=== PATIENT | female | born 1970 | race Caucasian/White ===

== ENCOUNTER 2017-03-03 12:23 | Inpatient (IN) | payer MEDICARE, MEDICAID ==
[2017-03-03] MEDS ORDERED: LORazepam INJ* 2 MG/ML 1 ML VIAL IV PRN (17:28)
[2017-03-03] MEDS ORDERED: diPHENhydraMINE PO* 25 MG PO PRN (17:28)
[2017-03-03] MEDS ORDERED: Mometasone/Formoter 100/5 MDI INH PRN (17:32)
--- NOTE | 2017-03-03 17:45 | ADMNOTE ---
Admission Note HPI - HPI Handedness: DOS 03/03/17 History of Present Illness: Lydia Mcmahon is a 46 year old woman with a history of diabetes with multiple complications, asthma, intellectual disability and tachycardia s/p pacemaker in March. She has been having episodes of possible seizures since approximately 2009, after she had a cardiac ablation. When I first saw her in Feb 2015, they had been getting more frequent and more bothersome. She initially reported that she would sometimes get nauseated at the start of an episode, then gets a feeling like her airway closes in and she loses balance. She denies any gagging with these episodes. She has fallen in the past because of episodes. She feel like she cannot talk during these episodes and her tongue gets numb. She had initially reported in 2014 that they could last between 15 and 30 minutes. She is tired afterward. It has been unclear whether she loses memory for the event. She cannot identify any triggers. She had checked her blood glucose at home when these occurred and never found it to be low. She was started on levetiracetam and this was titrated up to the current dose of 1500mg BID. She indicates that these episodes are improved, but not resolved. Her work up has included MRI brain and EEG. MRI did not show an epileptogenic lesion and EEG was not convincing for seizure either. She has also had an event monitor, which diagnosed paroxysmal atrial fibrillation, though episodes of AF did not correlate with her symptoms. She has had a pulmonary evaluation as well. PMH/Surg Hx/FS Hx/Imm Hx Endocrine/Hematology History: Reports: Hx Anticoagulant Therapy, Hx Diabetes, Hx Thyroid Disease Denies: Hx Blood Disorders, Hx Blood Transfusions, Hx Bone Marrow Disease, Hx Systemic Lupus Erythematosus, Hx Sickle Cell Disease, Hx Anemia, Hx Unexplained Bleeding, Other Endocrine/Hematological Disorders Cardiovascular History: Reports: Hx Auto Implanted Cardiovert Defib, Hx Congestive Heart Failure, Hx Coronary Artery Disease, Hx Embolism, Hx Hypercholesterolemia, Hx Hypertension, Hx Pacemaker/ICD, Hx Peripheral Vascular Disease, Hx Syncope Denies: Hx Aneurysm, Hx Angina, Hx Angioplasty, Hx Cardiac Arrest, Hx Cardiomegaly, Hx Congenital Heart Disease, Hx Deep Vein Thrombosis, Hx Hypotension, Hx Valvular Heart Disease, Other Cardiovascular Problems/Disorders Respiratory History: Reports: Hx Asthma, Other Respiratory Problems/Disorders - feeling that she can not breath at times. 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 Denies: Hx Cataracts, Hx Eye Injury, Hx Eye Prosthesis, Hx Glaucoma, Hx Legally Blind, Hx Macular Degeneration, Hx Vision Problem, Hx Deafness - left ear nerve damage, Hx Hearing Aid, Other Sensory Impairments Opthamlomology History: Reports: Hx Contacts or Glasses Denies: Hx Cataracts, Hx Eye Injury, Hx Eye Prosthesis, Hx Glaucoma, Hx Legally Blind, Hx Macular Degeneration, Hx Vision Problem, Other Sensory Impairments Neurological History: Reports: Hx Developmental Delay, Hx Seizures Denies: Hx Headaches, Hx Migraine, Hx Nerve Disease, Hx Spinal Cord Injury, Hx Transient Ischemic Attacks (TIA), Other Neuro Impairments/Disorders Psychiatric History: Reports: Hx Panic Disorder - DEPRESSION - Surgical History Surgery Procedure, Year, and Place: LIVER BIOPSY, KIDNEY BIOPSY, LASER EYE SURGERY LT EYE, EPS STUDY WITH ABLATION Infectious Disease History: No Infectious Disease History: Denies: Hx Clostridium Difficile, Hx Hepatitis, Hx Human Immunodeficiency Virus (HIV), Hx of Known/Suspected MRSA, Hx Shingles, Hx Tuberculosis, History Other Infectious Disease, Traveled Outside the [place] in Last 30 Days - Social History Alcohol Use: None Substance Use Type: Reports: None Smoking Status (MU): Never Smoked Tobacco Have You Smoked in the Last Year: No EMU Exam - Exam Physical/Neurological Exam: Physical Exam: General: Well appearing in no acute distress. Eyes: normal conjunctiva, pupils were equal and reactive. Neck: supple, no bruit ENT: atraumatic, normal oropharynx. She is edentulous Pulmonary: clear to auscultation, good respiratory effort Cardiac: regular rate and rhythmic, slight cardiac murmur, pulses palpable MSK: pitting lower extremity edema Derm: no rashes or lesions Neurological Exam: Mental Status: Awake and alert. Oriented to person, place, and time. Fluent but simple speech. Comprehension intact. Affect appropriate. Cranial Nerves: Visual dunn full to confrontation. Pupils were equal, round, and reactive constricting from 3mm to 2mm. Versions were full and without nystagmus. Facial musculature and sensation were symmetric. Hearing grossly intact to finger rub. Palate was upgoing bilaterally. Tongue was midline. Shoulder shrug was symmetric. Motor: Bulk, tone, and strength were normal throughout. Pronator drift was absent. There were no abnormal movements. Sensory: Sensation to light touch intact. Romberg was deferred. Coordination: Finger to nose intact. Reflexes: 2+ throughout the upper and lower extremities except absent ankle jerks. Gait: antalgic as she was seen ambulating to the bathroom right after she'd experienced a charley horse in her right leg EMU Review of Systems Review of Systems: A 12 point review of systems was completed and significantly positive for: increasing balance difficulties, coughing fits, cramps in leg and left hand. The remainder of the review was negative except as stated above in the HPI. EMU Diagnostics - Diagnostic Most Recent Vital Signs: Vital Signs: Temp Pulse Resp BP Pulse Ox 97.8 F 82 16 172/93 97 03/03/17 13:27 03/03/17 13:27 03/03/17 14:45 03/03/17 13:27 03/03/17 13:27 Interim video-EEG long-term monitoring report: EEG 04/10/15: Occasional mild, diffuse slowing but no discharges Radiology Impressions: MRI Brain 04/10/15: Normal, no epileptogenic lesions EMU Assessment/Plan - Assessment/Plan Assessment/Plan: 46 year old woman with multiple medical problems as well as episodes of possible seizures characterized by a sense of breath cutting out and sometimes preceded by nausea. These episodes seem to be less frequent on levetiracetam, but not resolved. She has had cardiac as well as pulmonary work up for these events without clear etiology. Though she describes the episodes as lasting many minutes, the differential does include seizures. The goal of the present chcf video/EEG monitoring session is to characterize these events and to evaluate the EEG for epileptiform activity. Plan: Admit to the Epilepsy Service, Dr. Weeks attending assisted video EEG monitoring for the purpose of characterizing events above Seizure precautions IV lorazepam as needed for prolonged seizures > 3 minutes Home AED regimen: levetiracetam 1500mg BID. Decrease to 750mg BID * Telemetry * Will check BGs with events Continue on other prescribed home medications.
[2017-03-03] MEDS: Potassium Chlor TAB* 20 MEQ TAB.ER PO SCH ×2 (18:00→21:15)
[2017-03-03] MEDS: Omeprazole CAP* 20 MG PO SCH ×2 (18:00→21:26)
[2017-03-03] MEDS: Atorvastatin* 10 MG TAB PO SCH (20:59)
[2017-03-03] MEDS: Gabapentin CAP(*) 100 MG PO SCH (21:14)
[2017-03-03] MEDS: Torsemide TAB* 20 MG PO SCH (21:14)
[2017-03-03] MEDS: Magnesium Oxide TAB* 400 MG PO SCH (21:14)
[2017-03-03] MEDS: Metoprolol Tartrate TAB* 25 MG PO SCH (21:15)
[2017-03-03] MEDS: levETIRAcetam TAB* 500 MG PO SCH (21:16)
[2017-03-03] MEDS: URSODIOL 250 MG PO SCH (21:26)
[2017-03-03] MEDS: LUBIPROSTONE 24 MCG PO SCH (21:26)
[2017-03-03] MEDS: Acetaminophen TAB* 325 MG PO PRN (22:05)
[2017-03-04] MEDS: Acetaminophen TAB* 325 MG PO PRN (03:59)
[2017-03-04] MEDS: Levothyroxine TAB* 125 MCG TAB PO SCH (06:18)
[2017-03-04] MEDS: Insulin LISPRO* 1 UNITS UNIT SUBCUT SCH ×3 (07:59→18:33)
[2017-03-04] MEDS: Cyanocobalamin TAB* 500 MCG PO SCH (08:49)
[2017-03-04] MEDS: DAPAGLIFLOZIN METFORMIN HCL PO SCH (08:50)
[2017-03-04] MEDS: Gabapentin CAP(*) 100 MG PO SCH ×3 (08:51→20:23)
[2017-03-04] MEDS: Isosorbide Mononitrate ER TAB* 30 MG PO SCH (08:53)
[2017-03-04] MEDS: levETIRAcetam TAB* 500 MG PO SCH (08:54)
[2017-03-04] MEDS: LINACLOTIDE 145 MCG PO SCH (08:54)
[2017-03-04] MEDS: LUBIPROSTONE 24 MCG PO SCH ×2 (08:55→20:24)
[2017-03-04] MEDS: Metolazone TAB* 5 MG PO SCH (08:56)
[2017-03-04] MEDS: Magnesium Oxide TAB* 400 MG PO SCH ×3 (08:56→20:23)
[2017-03-04] MEDS: Metoprolol Tartrate TAB* 25 MG PO SCH ×2 (08:58→20:23)
[2017-03-04] MEDS: Spironolactone TAB* 25 MG PO SCH (08:59)
[2017-03-04] MEDS: URSODIOL 250 MG PO SCH ×2 (09:00→20:24)
[2017-03-04] MEDS: Torsemide TAB* 20 MG PO SCH ×2 (09:00→20:24)
[2017-03-04] MEDS ORDERED: Insulin GLARGINE(*) 1 UNITS UNIT SUBCUT SCH (09:00)
[2017-03-04] MEDS: Aspirin Low Dose CHEW TAB* 81 MG PO SCH (09:06)
--- NOTE | 2017-03-04 09:59 | EEG ---
RESIDENTIAL VIDEO/EEG MONITORING - Monitoring Monitoring Start Date: 03/03/17 Current Monitoring Session: 03/03/17 to 03/10/17 EEG Clinical Indication: Lydia Mcmahon is a 46 year old woman with multiple medical problems including poorly controlled diabetes with associated complications, hypertension, tachycardia s/p pacemaker implantation and possible seizures. She began having these events in 2009 after a cardiac ablation but they became more frequent and intense in 2014. She describes her "breath cutting out" preceded sometimes by nausea and gestures across her neck with her hand. She sometimes has impaired memory for events. She will lose her balance if standing and has fallen in the past. Levetiracetam seems to have decreased the frequency of these events but they continue. MRI was normal and outpatient EEG did not show any epileptiform abnormalities. A cardiac event monitor did not correlate any tachycardia episodes with these symptoms. Long-term video EEG monitoring is undertaken in order to characterize these events. Introduction: INTRODUCTION: The EEG was monitored from 21 scalp electrodes. Nineteen electrodes consisted of the standard parasagittal, temporal and midline leads of the International 10 -20 system. In addition, special electrodes T1 and T2 were placed. EEG data were recorded on an [employer] system with simultaneous MPEG-4 digital video recording of patient behavior. EEG recording was in a monopolar montage with all electrodes referenced to FCz. Significant behavioral events were signaled by an event button, or putative electrical seizure events were detected by a computer program. All EEG data were reviewed in their entirety on a monitor with reconstruction of montages and adjustments of sensitivity and filtering. Simultaneous patient behavior was viewed on an adjacent monitor and correlated with the EEG. - Medications Active Medications: Acetaminophen (Tylenol Tab*) 650 mg PO Q6H PRN PRN Reason: PAIN Last Admin: 03/04/17 03:59 Dose: 650 mg Aspirin (Aspirin Low Dose Tab*) 81 mg PO DAILY [facility] Last Admin: 03/04/17 09:06 Dose: 81 mg Atorvastatin Calcium (Lipitor*) 10 mg PO BEDTIME RUBÉN Last Admin: 03/03/17 20:59 Dose: 10 mg Cyanocobalamin (Vitamin B12 Tab*) 1,000 mcg PO QAM [facility] Last Admin: 03/04/17 08:49 Dose: 1,000 mcg Diphenhydramine HCl (Benadryl Po*) 25 mg PO Q6H PRN PRN Reason: ITCHING Gabapentin (Neurontin Cap(*)) 100 mg PO TID [facility] Last Admin: 03/04/17 08:51 Dose: 100 mg Insulin Glargine (Lantus(*)) 100 units SUBCUT DAILY [facility] Last Admin: 03/04/17 09:01 Dose: 100 units Insulin Human Lispro (Humalog*) 40 units SUBCUT TID [facility] Last Admin: 03/04/17 07:59 Dose: 40 units Isosorbide Mononitrate (Imdur Er Tab*) 45 mg PO DAILY [facility] Last Admin: 03/04/17 08:53 Dose: 45 mg Levetiracetam (Keppra Tab*) 750 mg PO BID [facility] Last Admin: 03/04/17 08:54 Dose: 750 mg Levothyroxine Sodium (Synthroid Tab*) 250 mcg PO DAILY@0600 [facility] Last Admin: 03/04/17 06:18 Dose: 250 mcg Linaclotide (Linzess (Nf)) 290 mcg PO DAILY [facility] Last Admin: 03/04/17 08:54 Dose: 290 mcg Lorazepam (Ativan Inj*) 1 mg IV Q8H PRN PRN Reason: Seizure > 3 minutes Lubiprostone (Amitiza (Nf)) 24 mcg PO BID [facility] Last Admin: 03/04/17 08:55 Dose: 24 mcg Magnesium Oxide (Magox 400 Tab*) 400 mg PO TID [facility] Last Admin: 03/04/17 08:56 Dose: 400 mg Metolazone (Zaroxolyn Tab*) 7.5 mg PO QAM [facility] Last Admin: 03/04/17 08:56 Dose: 7.5 mg Metoprolol Tartrate (Lopressor Tab*) 25 mg PO BID [facility] Last Admin: 03/04/17 08:58 Dose: 25 mg Mometasone Furoate/Formoterol Fumar (Dulera 100/5 Mdi*) 2 puff INH BID PRN PRN Reason: SOB/WHEEZING Pto: Dapagliflozin- Metformin Hcl [ Xigduo Xr 10-1000 Mg ] 1 mg PO QAM [facility] Last Admin: 03/04/17 08:50 Dose: 1 mg Omeprazole (Prilosec Cap*) 40 mg PO QPM [facility] Last Admin: 03/03/17 21:26 Dose: 40 mg Potassium Chloride (Klor Con Er Tab*) 20 meq PO QPM [facility] Last Admin: 03/03/17 21:15 Dose: 20 meq Potassium Chloride (Klor Con Er Tab*) 40 meq PO DAILY [facility] Spironolactone (Aldactone Tab*) 50 mg PO DAILY [facility] Last Admin: 03/04/17 08:59 Dose: 50 mg Torsemide (Demadex*) 80 mg PO BID [facility] Last Admin: 03/04/17 09:00 Dose: 80 mg Ursodiol (Sophie 250(Nf)) 250 mg PO BID [facility] Last Admin: 03/04/17 09:00 Dose: 250 mg - Description Background: The waking background showed appropriate organization with clearly defined anterior-posterior voltage and frequency gradients. There was a defined posterior dominant rhythm of 9 Hertz, which was symmetrical and showed normal reactivity. Anteriorly, there was the expected pattern of lower voltage and more irregular theta and beta rhythms. At the beginning of the recording period, there are occasional paroxysms when the patient is not maximally awake of diffuse, polymorphic moderate to high voltage 2 to 5 Hz activity lasting 0.5 to 3 seconds per epoch. At times, there are intermixed sharp features which are not epileptiform. These paroxysms of slowing are seen more frequently when the patient becomes drowsy. Starting on , there was a greater degree of slowing intermixed within the background as the patient appeared to be in a drowsy/encephalopathic state much of the time. This persisted through 03/08. The slowing was often frontally predominant, but also represented diffusely. In general, during this time, the PDR was slower, in the range of 6 Hz. The background began to normalize in the evening on 03/08. Periods of frontally predominant delta slowing persisted. In addition, at times , epochs of temporal intermittent rhythmic delta activity in the range of 2 to 4 Hz were noted in the left temporal region. These lasted from 2 to 5 seconds. TIRDA was not noticed until levetiracetam was discontinued and recovery of the background began after the patient's illness (further described in interictal section). The sleep background was appropriately organized with well-developed spindles and vertex waves indicative of stage 2 sleep. These sleep transients showed appropriate morphology and were bilaterally synchronous and symmetrical. Development of diffuse delta range frequencies with dropout of stage 2 architecture accompanied transition to slow wave sleep, and a lower voltage mixed frequency pattern associated with eye movements was consistent with REM sleep. Intericatal Epileptiform Activity: #01 03/03: Medications: levetiracetam 750mg BID Background as described above with occasional periods of high voltage diffuse slowing, more prominent during drowsiness. There are no epileptiform abnormalities #02 03/04: Medications: levetiracetam 375mg BID Background essentially unchanged, perhaps a bit more slowing noted during the program management specialist hours of 03/05. Patient was nauseated, vomiting on the morning of . In the afternoon on 03/04, experienced symptomatic hypoglycemia to as low as 40, no clear change in EEG. Meal time insulin was changed to sliding scale from typical 40 units AC. No epileptiform discharges #03 03/05: Medications: levetiracetam 375mg BID Patient essentially slept most of the time during this recording. During periods of waking, there was a greater degree of slowing in the delta range, frontally predominant, than previously noted. She continued to be nauseated and vomited several times on this day. No discharges #04 03/06: Medications: levetiracetam 250mg at bedtime then d/c Background continued to show a greater degree of slowing than on admission, with some periods of improved background organization when patient was maximally awake. Still slept frequently during the day but not as much as previous day. No discharges. No further vomiting. #05 03/07: Medications: none Background demonstrated continued mixed frequency polymorphic slowing with frequent periods of frontal intermittent rhythmic delta activity. Somewhat more awake but still was sleeping a lot. No discharges. #06 03/08: Medications: none Background demonstrated continued mixed frequency polymorphic slowing with frequent periods of frontal intermittent rhythmic delta activity which improved over the course of the day. At times, the frontal slowing had some sharp contours, but not epileptiform. At other times, there was a predominance of intermittent rhythmic delta activity noted over the left temporal region. No discharges. #07 03/09: Medications: none Background appears similar to the day of admission with occasional epochs of high voltage slowing which is sometimes diffuse, sometimes frontally predominant. No discharges but she did again have periods of left temporal intermittent rhythmic delta activity at about 2 to 4Hz. She underwent photic stimulation and the response was unremarkable #08 03/10: Medications: levetiracetam 1500mg BID restarted Background similar to admission. No discharges. Ictal Activity: #01 03/03: No patient events, no ictal events #02 03/04: No patient events, no ictal events. #03 03/05: No ictal events. The event button was pressed by the nurse at 12:33 on 03/05 because the patient was feeling nauseated and hot. There was no EEG correlate to this. A slightly slow, waking background was noted. #04 03/06: No ictal events. No patient events. #05 03/07: No ictal events. No patient events. #06 03/08: No ictal events. No patient events #07 03/09: No ictal events. No patient events #08 03/10: No ictal events. No patient events. - Impression Impression: This is an abnormal long-term monitoring session. At the beginning of the recording, the background demonstrated intermittent periods of diffuse slowing which sometimes had a frontal predominance, consistent with a mild, non- specific encephalopathy. The patient became ill with nausea and vomiting 2 days after admission and the EEG demonstrated a much greater degree of slowing. In addition, the patient predominantly slept over the period of several days. These findings were consistent with a mild to moderate degree of encephalopathy. As the patient recovered from this illness and levetiracetam was weaned and discontinued, the background returned to her baseline, but periods of intermittent rhythmic delta slowing in the left temporal region were noted (TIRDA). These findings are consistent with increased epileptic potential in the left temporal region, though no definitive epileptiform discharges were seen. Unfortunately, none of the patient's typical events were captured during this monitoring session. Therefore, the nature of these events remains uncertain, but the possibility of epilepsy remains given the presence of TIRDA noted once levetiracetam was weaned.
[2017-03-04] MEDS: Potassium Chlor TAB* 20 MEQ TAB.ER PO SCH ×2 (10:29→18:38)
--- NOTE | 2017-03-04 11:30 | PN ---
Epilepsy Service Progress Note - Subjective DOS 03/04/17 Overnight she got a charley horse and was in the bathroom with a tech when she had a controlled fall. No injury. She feels nauseated this morning, says that she typically disperses her medications throughout the morning between 0600 and 1000. Says the jose horses seem to be "taking turns" in her legs. She was able to reiterate the types of events we are looking for here. No typical events. Noted that BGs are being checked on patient's own glucometer and being recorded in nursing worklist but not as POC test in [employer] - Medications Active Medications: Acetaminophen (Tylenol Tab*) 650 mg PO Q6H PRN PRN Reason: PAIN Last Admin: 03/04/17 03:59 Dose: 650 mg Aspirin (Aspirin Low Dose Tab*) 81 mg PO DAILY [facility] Last Admin: 03/04/17 09:06 Dose: 81 mg Atorvastatin Calcium (Lipitor*) 10 mg PO BEDTIME [facility] Last Admin: 03/03/17 20:59 Dose: 10 mg Cyanocobalamin (Vitamin B12 Tab*) 1,000 mcg PO QAM [facility] Last Admin: 03/04/17 08:49 Dose: 1,000 mcg Diphenhydramine HCl (Benadryl Po*) 25 mg PO Q6H PRN PRN Reason: ITCHING Gabapentin (Neurontin Cap(*)) 100 mg PO TID [facility] Last Admin: 03/04/17 08:51 Dose: 100 mg Insulin Glargine (Lantus(*)) 100 units SUBCUT DAILY [facility] Last Admin: 03/04/17 09:01 Dose: 100 units Insulin Human Lispro (Humalog*) 40 units SUBCUT TID AC [facility] Last Admin: 03/04/17 07:59 Dose: 40 units Isosorbide Mononitrate (Imdur Er Tab*) 45 mg PO DAILY [facility] Last Admin: 03/04/17 08:53 Dose: 45 mg Levetiracetam (Keppra Tab*) 750 mg PO BID [facility] Last Admin: 03/04/17 08:54 Dose: 750 mg Levothyroxine Sodium (Synthroid Tab*) 250 mcg PO DAILY@0600 [facility] Last Admin: 03/04/17 06:18 Dose: 250 mcg Linaclotide (Linzess (Nf)) 290 mcg PO DAILY [facility] Last Admin: 03/04/17 08:54 Dose: 290 mcg Lorazepam (Ativan Inj*) 1 mg IV Q8H PRN PRN Reason: Seizure > 3 minutes Lubiprostone (Amitiza (Nf)) 24 mcg PO BID [facility] Last Admin: 03/04/17 08:55 Dose: 24 mcg Magnesium Oxide (Magox 400 Tab*) 400 mg PO TID [facility] Last Admin: 03/04/17 08:56 Dose: 400 mg Metolazone (Zaroxolyn Tab*) 7.5 mg PO QAM [facility] Last Admin: 03/04/17 08:56 Dose: 7.5 mg Metoprolol Tartrate (Lopressor Tab*) 25 mg PO BID [facility] Last Admin: 03/04/17 08:58 Dose: 25 mg Mometasone Furoate/Formoterol Fumar (Dulera 100/5 Mdi*) 2 puff INH BID PRN PRN Reason: SOB/WHEEZING Pto: Dapagliflozin- Metformin Hcl [ Xigduo Xr 10-1000 Mg ] 1 mg PO QAM [facility] Last Admin: 03/04/17 08:50 Dose: 1 mg Omeprazole (Prilosec Cap*) 40 mg PO QPM [facility] Last Admin: 03/03/17 21:26 Dose: 40 mg Potassium Chloride (Klor Con Er Tab*) 20 meq PO QPM [facility] Last Admin: 03/03/17 21:15 Dose: 20 meq Potassium Chloride (Klor Con Er Tab*) 40 meq PO DAILY [facility] Last Admin: 03/04/17 10:29 Dose: 40 meq Spironolactone (Aldactone Tab*) 50 mg PO DAILY [facility] Last Admin: 03/04/17 08:59 Dose: 50 mg Torsemide (Demadex*) 80 mg PO BID [facility] Last Admin: 03/04/17 09:00 Dose: 80 mg Ursodiol (Sophie 250(Nf)) 250 mg PO BID [facility] Last Admin: 03/04/17 09:00 Dose: 250 mg EMU Diagnostics - Diagnostic Most Recent Vital Signs: Vital Signs: Temp Pulse Resp BP Pulse Ox 98.0 F 70 16 125/68 96 03/04/17 09:59 03/04/17 09:59 03/04/17 09:59 03/04/17 09:59 03/04/17 09:59 Lab Results: Most recent BG 234 Interim video-EEG long-term monitoring report: #01 03/03: Background shows PDR 9, occasional diffuse moderate to high voltage slowing during less alert state/drowsiness. No discharges, no seizures, no patient events EMU Exam - Exam Physical/Neurological Exam: Physical Exam: General: Well appearing in no acute distress. Laying in bed. Was dozing when I entered. Eyes: normal conjunctiva, pupils were equal and reactive. MSK: pitting lower extremity edema. There is some redness/scaling of the RLE but no erythema. Derm: Small scabbed lesion noted over right tibia, present on admission Neurological Exam: Mental Status: Awake and alert. Oriented to person, place, and time. Fluent but simple speech. Comprehension intact. Affect appropriate. Cranial Nerves: Versions were full and without nystagmus. Facial musculature and sensation were symmetric. Hearing grossly intact to voice. Palate was upgoing bilaterally. Tongue was midline. Shoulder shrug was symmetric. Motor: Bulk, tone, and strength were normal throughout. Pronator drift was absent. There were no abnormal movements. Sensory: Sensation to light touch intact. Romberg was deferred. Coordination: Finger to nose intact. Reflexes: not retested. Gait: deferred EMU Progress Note Assessment/P - Assessment/Plan Assessment: 46 year old left-handed woman with multiple medical problems include poorly controlled diabetes with associated complications, tachycardia s/p pacemaker and episodes of possible seizures since 2009 which increased in frequency in 2015. These events are characterized by a sense of her breath cutting out, inability to speak and sometimes preceded by nausea. They seem improved on levetiracetam 1500mg BID but not resolved and her EEG was not convincing for epileptiform abnormalities. LTM undertaken to characterize events. No typical events recorded yet. She has been having charley horses and reports nausea but declines antiemetic at this time Plan: * Continue [facility] video EEG monitoring to capture typical episodes * Seizure precautions * Ativan 1mg IV for seizure >3 minutes * reduced levetiracetam to 375mg BID tonight * Tylenol for pain. Can walk off charley horses with tech or nurse present but should be seated if she cannot stand, as she could not last night. Reiterated this with patient * will order Zofran prn * continue other home meds * begin checking BG with facility glucometer for ease of tracking within [facility]. Discussed with nurse.
[2017-03-04] MEDS ORDERED: Ondansetron ODT TAB* 4 MG PO PRN (11:36)
[2017-03-04 15:36] LABS: BUN/Creatinine Ratio 16.7 (8-20); Calcium 9.2 mg/dL (8.6-10.3); EGFR African American 74.4 (>60); EGFR Non-African American 57.8 (>60); Magnesium 1.3 mg/dL (1.9-2.7); Potassium 3.2 mmol/L (3.5-5.0)
[2017-03-04] MEDS ORDERED: Dextrose 50% Syringe 50 ML* 25 GM/50 ML SYRINGE IV PUSH ONE (15:53)
[2017-03-04] MEDS ORDERED: Dextrose 50% Syringe 50 ML* 25 GM/50 ML SYRINGE IV PUSH PRN ×2 (15:58→16:47)
[2017-03-04] MEDS ORDERED: Magnesium Sulfate 1 GM IV* 1 GM/100 ML BAG IV ONE (16:08)
[2017-03-04] MEDS ORDERED: Ibuprofen TAB* 600 MG ONE (16:11)
[2017-03-04] MEDS ORDERED: Ibuprofen TAB* 400 MG PO PRN (16:11)
[2017-03-04] MEDS: Omeprazole CAP* 20 MG PO SCH (18:38)
[2017-03-04] MEDS: Atorvastatin* 10 MG TAB PO SCH (20:23)
[2017-03-04] MEDS: levETIRAcetam LIQ* 500 MG/5 ML UDC PO SCH (20:25)
[2017-03-05] MEDS: Levothyroxine TAB* 125 MCG TAB PO SCH (05:40)
[2017-03-05] MEDS: Insulin LISPRO* 1 UNITS UNIT SUBCUT SCH ×3 (08:30→17:12)
[2017-03-05] MEDS: Aspirin Low Dose CHEW TAB* 81 MG PO SCH (09:14)
[2017-03-05] MEDS: Potassium Chlor TAB* 20 MEQ TAB.ER PO SCH ×2 (09:15→17:56)
[2017-03-05] MEDS: Metoprolol Tartrate TAB* 25 MG PO SCH ×2 (09:16→22:49)
[2017-03-05] MEDS: levETIRAcetam LIQ* 500 MG/5 ML UDC PO SCH ×2 (09:20→23:03)
[2017-03-05] MEDS: Gabapentin CAP(*) 100 MG PO SCH ×3 (09:21→23:02)
[2017-03-05] MEDS: DAPAGLIFLOZIN METFORMIN HCL PO SCH (09:23)
[2017-03-05] MEDS: Isosorbide Mononitrate ER TAB* 30 MG PO SCH (09:24)
[2017-03-05] MEDS: Cyanocobalamin TAB* 500 MCG PO SCH (09:26)
[2017-03-05] MEDS: LINACLOTIDE 145 MCG PO SCH (09:27)
[2017-03-05] MEDS ORDERED: Insulin GLARGINE(*) 1 UNITS UNIT SUBCUT SCH (10:15)
[2017-03-05] MEDS: LUBIPROSTONE 24 MCG PO SCH ×2 (11:45→23:05)
[2017-03-05] MEDS: Magnesium Oxide TAB* 400 MG PO SCH ×3 (11:46→23:06)
[2017-03-05] MEDS: Metolazone TAB* 5 MG PO SCH (11:46)
[2017-03-05] MEDS ORDERED: Ondansetron INJ* 2 MG/ML VIAL IV PRN (13:05)
--- NOTE | 2017-03-05 13:28 | PN ---
Epilepsy Service Progress Note - Subjective DOS 03/05/17 Patient had significant hypoglycemia yesterday afternoon, as low as 40, which was somewhat refractory to juice and snacks. Ended up giving 25gm D50 and she responded. Discontinued her home dosing of Novolog and started sliding scale instead. She vomited at shift change last night, then once this AM and once again just after eating lunch. Has vomited some of her AM meds. Changed her Lantus to 50U from 100U given what happened yesterday and the vomiting with decreased po intake. She's been sleepy this AM but able to wake up and converse. Says her stomach is "slow" because of her diabetes and she sometimes vomits at home. Says she's doing ok right now. No further charley horses since IV magnesium was given last night. - Medications Active Medications: Acetaminophen (Tylenol Tab*) 650 mg PO Q6H PRN PRN Reason: PAIN Last Admin: 03/04/17 03:59 Dose: 650 mg Aspirin (Aspirin Low Dose Tab*) 81 mg PO DAILY [facility] Last Admin: 03/05/17 09:14 Dose: 81 mg Atorvastatin Calcium (Lipitor*) 10 mg PO BEDTIME [facility] Last Admin: 03/04/17 20:23 Dose: 10 mg Cyanocobalamin (Vitamin B12 Tab*) 1,000 mcg PO QAM [facility] Last Admin: 03/05/17 09:26 Dose: 1,000 mcg Dextrose (D50w Syringe 50 Ml*) 12.5 gm IV PUSH DAILY PRN PRN Reason: BG <70 refractory to juice Dextrose (D50w Syringe 50 Ml*) 12.5 gm IV PUSH .FOR FS < 60 - SS PRN PRN Reason: FS < 60 Diphenhydramine HCl (Benadryl Po*) 25 mg PO Q6H PRN PRN Reason: ITCHING Gabapentin (Neurontin Cap(*)) 100 mg PO TID [facility] Last Admin: 03/05/17 09:21 Dose: 100 mg Ibuprofen (Motrin Tab*) 400 mg PO ONCE PRN PRN Reason: PAIN Insulin Glargine (Lantus(*)) 50 units SUBCUT DAILY [facility] Last Admin: 03/05/17 10:32 Dose: 50 units Insulin Human Lispro (Humalog*) 0 units SUBCUT AC [facility] PRN Reason: Protocol Last Admin: 03/05/17 12:03 Dose: 6 units Isosorbide Mononitrate (Imdur Er Tab*) 45 mg PO DAILY [facility] Last Admin: 03/05/17 09:24 Dose: 45 mg Levetiracetam (Keppra Liq*) 375 mg PO BID [facility] Last Admin: 03/05/17 09:20 Dose: 375 mg Levothyroxine Sodium (Synthroid Tab*) 250 mcg PO DAILY@0600 [facility] Last Admin: 03/05/17 05:40 Dose: 250 mcg Linaclotide (Linzess (Nf)) 290 mcg PO DAILY [facility] Last Admin: 03/05/17 09:27 Dose: 290 mcg Lorazepam (Ativan Inj*) 1 mg IV Q8H PRN PRN Reason: Seizure > 3 minutes Lubiprostone (Amitiza (Nf)) 24 mcg PO BID [facility] Last Admin: 03/05/17 11:45 Dose: 24 mcg Magnesium Oxide (Magox 400 Tab*) 400 mg PO TID [facility] Last Admin: 03/05/17 11:46 Dose: 400 mg Metolazone (Zaroxolyn Tab*) 7.5 mg PO QAM [facility] Last Admin: 03/05/17 11:46 Dose: 7.5 mg Metoprolol Tartrate (Lopressor Tab*) 25 mg PO BID [facility] Last Admin: 03/05/17 09:16 Dose: 25 mg Mometasone Furoate/Formoterol Fumar (Dulera 100/5 Mdi*) 2 puff INH BID PRN PRN Reason: SOB/WHEEZING Pto: Dapagliflozin- Metformin Hcl [ Xigduo Xr 10-1000 Mg ] 1 mg PO QAM [facility] Last Admin: 03/05/17 09:23 Dose: 1 mg Omeprazole (Prilosec Cap*) 40 mg PO QPM [facility] Last Admin: 03/04/17 18:38 Dose: 40 mg Ondansetron HCl (Zofran Inj*) 4 mg IV Q6H PRN PRN Reason: NAUSEA Potassium Chloride (Klor Con Er Tab*) 20 meq PO QPM [facility] Last Admin: 03/04/17 18:38 Dose: 20 meq Potassium Chloride (Klor Con Er Tab*) 40 meq PO DAILY [facility] Last Admin: 03/05/17 09:15 Dose: 40 meq Spironolactone (Aldactone Tab*) 50 mg PO DAILY [facility] Last Admin: 03/04/17 08:59 Dose: 50 mg Torsemide (Demadex*) 80 mg PO BID [facility] Last Admin: 03/04/17 20:24 Dose: 80 mg Ursodiol (Sophie 250(Nf)) 250 mg PO BID [facility] Last Admin: 03/04/17 20:24 Dose: 250 mg EMU Diagnostics - Diagnostic Most Recent Vital Signs: Vital Signs: Temp Pulse Resp BP Pulse Ox 97.6 F 70 18 114/61 92 03/05/17 07:41 03/05/17 12:40 03/05/17 12:40 03/05/17 12:40 03/05/17 12:40 Lab Results: Laboratory Tests 03/04/17 03/04/17 03/04/17 11:30 13:51 14:22 Sodium Potassium Chloride Carbon Dioxide Anion Gap BUN Creatinine Est GFR ( Amer) Est GFR (Non-Af Amer) BUN/Creatinine Ratio Glucose POC Glucose (mg/dL) 150 H 53 L 59 L Calcium Magnesium 03/04/17 03/04/17 03/04/17 14:40 15:08 15:19 Sodium 137 Potassium 3.2 L Chloride 98 L Carbon Dioxide 33 H Anion Gap 6 BUN 17 Creatinine 1.02 H Est GFR ( Amer) 74.4 Est GFR (Non-Af Amer) 57.8 BUN/Creatinine Ratio 16.7 Glucose 40 L POC Glucose (mg/dL) 61 L 64 L Calcium 9.2 Magnesium 1.3 L 03/04/17 03/04/17 03/04/17 15:49 17:40 18:20 Sodium Potassium Chloride Carbon Dioxide Anion Gap BUN Creatinine Est GFR ( Amer) Est GFR (Non-Af Amer) BUN/Creatinine Ratio Glucose POC Glucose (mg/dL) 54 L 122 H 132 H Calcium Magnesium 03/04/17 03/05/17 03/05/17 19:54 06:17 07:42 Sodium Potassium Chloride Carbon Dioxide Anion Gap BUN Creatinine Est GFR ( Amer) Est GFR (Non-Af Amer) BUN/Creatinine Ratio Glucose POC Glucose (mg/dL) 127 H 158 H 175 H Calcium Magnesium 03/05/17 03/05/17 10:15 11:38 Sodium Potassium Chloride Carbon Dioxide Anion Gap BUN Creatinine Est GFR ( Amer) Est GFR (Non-Af Amer) BUN/Creatinine Ratio Glucose POC Glucose (mg/dL) Calcium Magnesium TNP 1.9 Interim video-EEG long-term monitoring report: #01 03/03: Background shows PDR 9, occasional diffuse moderate to high voltage slowing during less alert state/drowsiness. No discharges, no seizures, no patient events #02 03/04: Background as above except for some more frequent slowing in the same distribution as previously described. No clear epileptiform abnormalities. No seizures or patient events. EMU Exam - Exam Physical/Neurological Exam: Physical Exam: General: Asleep, wakes to voice but falls back to sleep easily Eyes: normal conjunctiva, pupils were equal and reactive. MSK: pitting lower extremity edema. There is some redness/scaling of the RLE but no erythema. No clear change since yesterday Derm: Small scabbed lesion noted over right tibia, present on admission Neurological Exam: Mental Status: Awake and alert. Oriented to person, place, and time. Fluent but simple speech. Comprehension intact. Affect appropriate. Neurological exam not repeated today given patient is sleepy and nauseated EMU Progress Note Assessment/P - Assessment/Plan Assessment: 46 year old left-handed woman with multiple medical problems include poorly controlled diabetes with associated complications, tachycardia s/p pacemaker and episodes of possible seizures since 2009 which increased in frequency in 2015. These events are characterized by a sense of her breath cutting out, inability to speak and sometimes preceded by nausea. They seem improved on levetiracetam 1500mg BID but not resolved and her EEG was not convincing for epileptiform abnormalities. LTM undertaken to characterize events. No typical events recorded yet. She has been having charley horses and yesterday had symptomatic hypoglycemia. BMP showed hypomagnesemia and continued hypoglycemia. Was given IV magnesium 1gm and 25gm D50. Has vomited 3 times in the last 24 hours and is sleepy today, though BG has been in the low 100s. Question whether the relative hypoglycemia is making her nauseated vs administering meds differently than she does at home in terms of timing vs changing levetiracetam dose quickly vs gastroenteritis? 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 * changed Zofran to IV 4mg q6hr prn nausea * continue other home meds * notify MD if pt continues to vomit and cannot keep meds down.
[2017-03-05] MEDS: Torsemide TAB* 20 MG PO SCH (14:25)
[2017-03-05] MEDS: Spironolactone TAB* 25 MG PO SCH (14:26)
[2017-03-05] MEDS: URSODIOL 250 MG PO SCH ×2 (14:27→23:07)
[2017-03-05 17:40] LABS: Hematocrit 44 % (35-47); Hemoglobin 15.2 g/dl (12.0-16.0); Mean Corpuscular HGB Conc 34 g/dl (31-36); Mean Corpuscular Hemoglobin 31 pg (27-31); Mean Corpuscular Volume 90 fL (80-97); Mean Platelet Volume 10 um3 (7.4-10.4); Red Blood Count 4.94 10^6/ul (4.0-5.4); Red Cell Distribution Width 15 % (10.5-15); White Blood Count 13.7 10^3/ul (3.5-10.8)
[2017-03-05] MEDS: Omeprazole CAP* 20 MG PO SCH (17:56)
[2017-03-05] MEDS ORDERED: Albuterol 2.5 MG/3 ML NEB.SOL* (0.083%) INH PRN (21:15)
[2017-03-05] MEDS ORDERED: NS 0.9% 1000 ML* 1,000 ML IV SCH (21:30)
--- NOTE | 2017-03-05 21:35 | RAD ---
Indication: Nausea and vomiting. Seizure disorder. Comparison: No relevant prior exams available on the [facility] for comparison. Technique: Supine view of the abdomen. Report: Large body habitus limits image quality. Unremarkable bowel gas pattern. Moderate stool in the colon without significant rectal distension. Peripheral vascular calcifications noted. Unremarkable soft tissue contours accounting for large body habitus. IMPRESSION: No acute abdominal pelvic pathologic process evident.
[2017-03-05] MEDS: Metoclopramide IV* 5 MG/ML 2 ML VIAL IV PRN (21:40)
[2017-03-05 21:48] LABS: Hematocrit 44 % (35-47); Mean Corpuscular HGB Conc 34 g/dl (31-36); Mean Corpuscular Hemoglobin 31 pg (27-31); Mean Corpuscular Volume 90 fL (80-97); Mean Platelet Volume 10 um3 (7.4-10.4); Red Blood Count 4.86 10^6/ul (4.0-5.4); Red Cell Distribution Width 15 % (10.5-15); White Blood Count 13.5 10^3/ul (3.5-10.8)
[2017-03-05 22:02] LABS: Albumin 3.6 g/dL (3.2-5.2); BUN/Creatinine Ratio 21.5 (8-20); EGFR Non-African American 38.9 (>60); Globulin 3.2 g/dL (2-4); Total Bilirubin 0.5 mg/dL (0.2-1.0); Total Protein 6.8 g/dL (6.4-8.9)
[2017-03-05] MEDS: NS 0.9% 1000 ML* 1,000 ML IV SCH (22:30)
[2017-03-05] MEDS: Atorvastatin* 10 MG TAB PO SCH (22:58)
[2017-03-05] MEDS: KCL 20 MEQ/100 ML IVPREMIX* 20 MEQ/100 ML BAG IV SCH (22:59)
[2017-03-06 01:26] LABS: Urine Nitrite Negative (Negative)
[2017-03-06 01:27] LABS: Urine Bilirubin Negative (Negative); Urine Glucose 2+(150 mg/dL) (Negative)
--- NOTE | 2017-03-06 01:44 | CONS ---
CC: NIESHA Mcnamara; Dr. Weeks * CONSULTATION REPORT: DATE OF CONSULT: 03/05/17 - ROOM #EMU-309 PRIMARY CARE PROVIDER: NIESHA Mcnamara in [place]. REQUESTING PHYSICIAN FOR CONSULT: Dr. Weeks. ATTENDING PHYSICIAN WHILE IN THE HOSPITAL: Akin Torres MD (report dictated by Dave Lopez NP). REASON FOR MEDICAL CONSULTATION: Evaluation and medical management of comorbid medical conditions. HISTORY OF PRESENT ILLNESS: I refer you to Dr. Weeks's H and P for further details. In short, Ms. Mcmahon is a 46-year-old female patient with multiple medical problems. She has a history of diabetes, asthma, intellectual developmental delay, AFib, CHF, unknown EF, CAD, hyperlipidemia, hypertension, PVD, IBS, seizures and gastroparesis. She came in to the EMU unit for evaluation of seizures. She has been having significant amounts of episodes of possible seizures since approximately 2009 after she had a cardiac ablation. She says that this event is becoming more frequent and bothersome. I will refer you to the report, but ultimately it was felt that she would require continuous EMU monitoring and Dr. Weeks was going to admit her to the EMU, which she did. Unfortunately, over the last 24 hours, the patient has been having episodes of vomiting. She says she has been vomiting after she eats. She said she had a bowel movement yesterday too. She has been passing flatus, but she is not having any abdominal discomfort and she says at home at times she does have issues with vomiting, particularly after she eats or drinks something. She says that she has vomited 3 or 4 times today. She says she has been feeling nauseated. She has not been feeling well. In addition to this, it has also been noted that she has been having some pretty labile sugars. Her sugars have been in the 50s and 60s and at times now, after some medication titration, her glucose is little more stable, but because of the nausea and the vomiting she has been having and the fact that the patient has been having trouble keeping an eye on her sugars, we are asked to evaluate in consult. The patient denies again any abdominal pain. No chest pain or shortness of breath. She denies any fevers or chills, none has been recorded here and she denies having any again diarrhea and no recent sick contacts that she knows of and denies having any recent URI symptoms. Because of her medical complexity, we are asked to evaluate in consult. PAST MEDICAL HISTORY: Significant for: 1. Diabetes. 2. Asthma. 3. Intellectual developmental delay. 4. AFib. 5. CHF. 6. CAD. 7. Hypertension. 8. Hyperlipidemia. 9. PVD. 10. IBS. 11. Seizures. 12. Gastroparesis. PAST SURGICAL HISTORY: 1. She had a pacemaker placement. 2. Ablation. 3. Liver biopsy. 4. Kidney biopsy. MEDICATIONS: Home medications according to the list that was provided include: 1. Lantus, I believe she was on 100 units, now she has been titrated on 50 units subcu daily. 2. Vitamin B 1000 mg p.o. daily. 3. Ursodiol 250 mg p.o. b.i.d. 4. Torsemide 80 mg p.o. b.i.d. 5. Spironolactone 50 mg daily. 6. Xarelto 20 mg p.o. daily. 7. Potassium 20 mEq at night and 40 mEq in the morning. 8. Omeprazole 40 mg p.o. daily. 9. NovoLog sliding scale a.c. 10. Metoprolol 25 mg p.o. b.i.d. 11. Metolazone 3 tablets in the morning. 12. Magnesium oxide 400 mg p.o. t.i.d. 13. Amitiza 24 mcg p.o. b.i.d. 14. Linzess 290 mcg p.o. daily. 15. Synthroid 250 mcg p.o. daily. 16. Keppra 1500 mg p.o. b.i.d. 17. Imdur 45 mg p.o. daily. 18. Gabapentin 100 mg p.o. t.i.d. 19. Advair 1 puff inhaled b.i.d. as needed. 20. Xigduo XR 1 tablet p.o. q.a.m. 21. Lipitor 10 mg p.o. daily. 22. Aspirin 81 mg daily. ALLERGIES: To medications include PENICILLIN and TEGRETOL. FAMILY HISTORY: She was adopted. SOCIAL HISTORY: She does not smoke, does not drink. She lives with her boyfriend. Surrogate decision maker is her friend Nata. REVIEW OF SYSTEMS: There is no documented fever. She denied having any significant weight change. There was no double vision. There is no ear discharge. She denied having any rhinorrhea. No sore throat. No thyroid enlargement. She denied having any chest pain. There was no orthopnea. There was no nocturnal dyspnea. There was no abdominal pain. There was nausea, vomiting. No dysuria, no frequency. There are no seizures reported. No loss of consciousness. Review of 14 systems was completed, all others negative. PHYSICAL EXAMINATION: Vital Signs: Blood pressure 112/58, pulse 73, respirations 18, O2 sat 92%, and temperature of 97.2. General: At this time, Ms. Mcmahon is a 46-year-old female patient. She appears to be older than stated age. She is chronically ill appearing. HEENT: Head is atraumatic and normocephalic. Eyes: EOMs are intact. Sclerae anicteric, not pale. Neck: Supple. Throat: Oral mucosa appears to be dry. No oropharyngeal erythema. Heart: Sounds S1 and S2, regular rate and rhythm. No murmurs, rubs or gallops. Lungs: Clear to auscultation bilaterally. No wheezes, rales or rhonchi. Abdomen: Soft, flat, nontender. Bowel sounds present. Extremities: Pulses 2+ throughout. She had mild nonpitting edema bilaterally. She had 5/ 5 strength in the extremities and pulses are 2+ throughout. Neurologically, she is awake, alert, and oriented x3. Speech is clear. Tongue midline. No gross focal deficits. Skin is intact. DIAGNOSTIC STUDIES/LAB DATA: I do have labs, which reveals WBC of 13.7, RBC of 4.94, hemoglobin of 15.2, hematocrit of 44, platelet count of 174. The chemistries from the 03/04/17, sodium of 137, potassium of 3.2, chloride of 98, bicarbonate 33, BUN 17, creatinine of 1.02, glucose of 40. Glucose now is 130, mag is 1.9. Old medical records were reviewed. ASSESSMENT/PLAN: Ms. Mcmahon is complex 46-year-old female patient with multiple medical problems, coming in to the EMU on the 03/03/17 for evaluation of seizure activity. She was noted to have episodes of hypoglycemia. In addition to that, she is also noted to have episodes of nausea and vomiting over the last 24 hours. We are asked to evaluate in consult. My recommendations at this point are: 1. Seizure disorder. I will refer to management with Dr. Weeks. 2. Diabetes. At this point, I am going stop her p.o. agents, put her on a sliding scale and we will continue Lantus at 50 if the the sugar is significantly better controlled. I will add on A1c as well. 3. Asthma. We will continue with p.r.n. albuterol. 4. Nausea, vomiting. Etiology is unclear. Certainly, it could be related to gastroparesis from not well controlled diabetes. It could be gastroenteritis. It could be a viral illness. I do think we should get a CMP, amylase, lipase, urine study. I did note that her white count was 13,000, but that could just be from leukemoid reaction secondary to the vomiting. She had no left shifts. No fever. I would like to continue to monitor. We will repeat the CBC tomorrow and we will monitor. 5. Electrolyte disorder. I am going to hydrate the patient and hold her diuretics in the setting of her vomiting. I do not want her to become dehydrated. 6. Intellectual developmental disability. Supportive care. 7. Atrial fibrillation. Continue with Xarelto and her beta jeri. She is rate controlled. 8. History of congestive heart failure. She appears to be on the dry side. We will hold the diuretics. We will restart them when safe and go ahead and give her a liter of fluids over the next 10 hours. 9. Coronary artery disease. Again, no chest pain reported. Continue the aspirin, statin and beta jeri. She is on nitrates. 10. Hyperlipidemia. Continue statin therapy. 11. Hypertension. Continue meds as described. 12. Peripheral vascular disease. Continue aspirin and statin. 13. Irritable bowel syndrome. Continue her linzess and amitiza. 14. Gastroparesis. Again, we will go ahead and put her on Reglan. 15. DVT prophylaxis: She is on Xarelto. 16. Code status: Full code. 17. Fluids and nutrition:f For now, I am going to put her on clear liquid diet until the nausea resolves and then we could get her back on the consistent carb diet. TIME SPENT: Time spent on the consult was approximately 60 minutes; greater than half that time was spent [id number] with the patient obtaining my history and physical, other half the time was spent going over the plan of care with the patient, implementing my plan of care. I discussed the plan of care with my attending, Dr. Torres, he is in agreement. DAVE LOPEZ, DOWEL MACHINE OPERATOR [id number]/[facility] #: [id number] SACHI
[2017-03-06] MEDS: KCL 20 MEQ/100 ML IVPREMIX* 20 MEQ/100 ML BAG IV SCH ×2 (02:23→05:52)
[2017-03-06] MEDS: Levothyroxine TAB* 125 MCG TAB PO SCH (06:17)
[2017-03-06] MEDS: Insulin LISPRO* 1 UNITS UNIT SUBCUT SCH ×3 (07:51→16:45)
[2017-03-06] MEDS ORDERED: KCL 20 MEQ/100 ML IVPREMIX* 20 MEQ/100 ML BAG IV ONE (07:56)
[2017-03-06] MEDS: Metoclopramide IV* 5 MG/ML 2 ML VIAL IV PRN (08:25)
[2017-03-06] MEDS: NS 0.9% 1000 ML* 1,000 ML IV SCH (08:31)
[2017-03-06] MEDS ORDERED: Insulin GLARGINE(*) 1 UNITS UNIT SUBCUT SCH (09:00)
[2017-03-06] MEDS: Isosorbide Mononitrate ER TAB* 30 MG PO SCH (09:18)
[2017-03-06] MEDS: Aspirin Low Dose CHEW TAB* 81 MG PO SCH (09:19)
[2017-03-06] MEDS: Cyanocobalamin TAB* 500 MCG PO SCH (09:20)
[2017-03-06] MEDS: Gabapentin CAP(*) 100 MG PO SCH ×3 (09:20→20:57)
[2017-03-06] MEDS: LINACLOTIDE 145 MCG PO SCH (09:21)
[2017-03-06] MEDS: levETIRAcetam LIQ* 500 MG/5 ML UDC PO SCH (09:36)
[2017-03-06 11:02] LABS: Hematocrit 42 % (35-47); Mean Corpuscular HGB Conc 33 g/dl (31-36); Mean Corpuscular Hemoglobin 30 pg (27-31); Mean Corpuscular Volume 91 fL (80-97); Mean Platelet Volume 11 um3 (7.4-10.4); Red Blood Count 4.62 10^6/ul (4.0-5.4); Red Cell Distribution Width 14 % (10.5-15); White Blood Count 13.4 10^3/ul (3.5-10.8)
--- NOTE | 2017-03-06 11:13 | PN ---
Epilepsy Service Progress Note - Subjective DOS 03/06/17 Pt continued to have a few episodes of emesis yesterday, did not take good po and slept most of the day. Lantus was halved yesterday morning. Hospital medicine was asked to consult given the previous hypoglycemia and now emesis. Labs, abd XR and Reglan were ordered in addition to IVF. Today, she states she was able to tolerate some clear liquids. Was feeling nauseated but no further emesis today. Has been able to keep down some of her AM pills. Denies sick contacts at home prior to coming in. Denies BROWN, abd pain. No typical events yet. - Medications Active Medications: Acetaminophen (Tylenol Tab*) 650 mg PO Q6H PRN PRN Reason: PAIN Last Admin: 03/04/17 03:59 Dose: 650 mg Albuterol (Ventolin 2.5 Mg/3 Ml Neb.Fabby*) 2.5 mg INH Q2H PRN PRN Reason: SOB/WHEEZING Aspirin (Aspirin Low Dose Tab*) 81 mg PO DAILY [facility] Last Admin: 03/06/17 09:19 Dose: 81 mg Atorvastatin Calcium (Lipitor*) 10 mg PO BEDTIME [facility] Last Admin: 03/05/17 22:58 Dose: 10 mg Cyanocobalamin (Vitamin B12 Tab*) 1,000 mcg PO QAM [facility] Last Admin: 03/06/17 09:20 Dose: 1,000 mcg Dextrose (D50w Syringe 50 Ml*) 12.5 gm IV PUSH DAILY PRN PRN Reason: BG <70 refractory to juice Dextrose (D50w Syringe 50 Ml*) 12.5 gm IV PUSH .FOR FS < 60 - SS PRN PRN Reason: FS < 60 Diphenhydramine HCl (Benadryl Po*) 25 mg PO Q6H PRN PRN Reason: ITCHING Gabapentin (Neurontin Cap(*)) 100 mg PO TID [facility] Last Admin: 03/06/17 09:20 Dose: 100 mg Sodium Chloride (Ns 0.9% 1000 Ml*) 1,000 mls @ 100 mls/hr IV PER RATE [facility] Last Admin: 03/06/17 08:31 Dose: 100 mls/hr Insulin Glargine (Lantus(*)) 35 units SUBCUT DAILY [facility] Last Admin: 03/06/17 09:16 Dose: 35 units Insulin Human Lispro (Humalog*) 0 units SUBCUT [facility] PRN Reason: Protocol Last Admin: 03/06/17 07:51 Dose: Not Given Isosorbide Mononitrate (Imdur Er Tab*) 45 mg PO DAILY [facility] Last Admin: 03/06/17 09:18 Dose: 45 mg Levetiracetam (Keppra Liq*) 375 mg PO BID [facility] Last Admin: 03/06/17 09:36 Dose: 375 mg Levothyroxine Sodium (Synthroid Tab*) 250 mcg PO DAILY@0600 [facility] Last Admin: 03/06/17 06:17 Dose: 250 mcg Linaclotide (Linzess (Nf)) 290 mcg PO DAILY [facility] Last Admin: 03/06/17 09:21 Dose: 290 mcg Lorazepam (Ativan Inj*) 1 mg IV Q8H PRN PRN Reason: Seizure > 3 minutes Lubiprostone (Amitiza (Nf)) 24 mcg PO BID [facility] Last Admin: 03/05/17 23:05 Dose: 24 mcg Magnesium Oxide (Magox 400 Tab*) 400 mg PO TID [facility] Last Admin: 03/05/17 23:06 Dose: 400 mg Metoclopramide HCl (Reglan Iv*) 10 mg IV Q6H PRN PRN Reason: NAUSEA/VOMITING Last Admin: 03/06/17 08:25 Dose: 10 mg Metoprolol Tartrate (Lopressor Tab*) 25 mg PO BID [facility] Mometasone Furoate/Formoterol Fumar (Dulera 100/5 Mdi*) 2 puff INH BID PRN PRN Reason: SOB/WHEEZING Omeprazole (Prilosec Cap*) 40 mg PO QPM [facility] Last Admin: 03/05/17 17:56 Dose: Not Given Ondansetron HCl (Zofran Inj*) 4 mg IV Q6H PRN PRN Reason: NAUSEA Last Admin: 03/05/17 13:39 Dose: 4 mg Potassium Chloride (Klor Con Er Tab*) 20 meq PO QPM [facility] Last Admin: 03/05/17 17:56 Dose: Not Given Potassium Chloride (Klor Con Er Tab*) 40 meq PO DAILY [facility] Last Admin: 03/05/17 09:15 Dose: 40 meq Rivaroxaban (Xarelto (*)) 20 mg PO DAILY [facility] Ursodiol (Sophie 250(Nf)) 250 mg PO BID [facility] Last Admin: 03/05/17 23:07 Dose: 250 mg EMU Diagnostics - Diagnostic Most Recent Vital Signs: Vital Signs: Temp Pulse Resp BP Pulse Ox 97.9 F 70 16 104/59 91 03/06/17 07:40 03/06/17 07:40 03/06/17 08:48 03/06/17 07:40 03/06/17 07:40 Lab Results: Laboratory Tests 03/04/17 03/04/17 03/04/17 11:30 13:51 14:22 WBC RBC Hgb Hct MCV MCH MCHC RDW Plt Count MPV Neut % (Auto) Lymph % (Auto) Bladen % (Auto) Eos % (Auto) Baso % (Auto) Absolute Neuts (auto) Absolute Lymphs (auto) Absolute Monos (auto) Absolute Eos (auto) Absolute Basos (auto) Absolute Nucleated RBC Nucleated RBC % Sodium Potassium Chloride Carbon Dioxide Anion Gap BUN Creatinine Est GFR ( Amer) Est GFR (Non-Af Amer) BUN/Creatinine Ratio Glucose POC Glucose (mg/dL) 150 H 53 L 59 L Hemoglobin A1c Calcium Magnesium Total Bilirubin AST ALT Alkaline Phosphatase Total Protein Albumin Globulin Albumin/Globulin Ratio Amylase Lipase Beta HCG, Quant Urine Color Urine Appearance Urine pH Ur Specific [place] Urine Protein Urine Ketones Urine Blood Urine Nitrate Urine Bilirubin Urine Urobilinogen Ur Leukocyte Esterase Urine Glucose 03/04/17 03/04/17 03/04/17 14:40 15:08 15:19 WBC RBC Hgb Hct MCV MCH MCHC RDW Plt Count MPV Neut % (Auto) Lymph % (Auto) Bladen % (Auto) Eos % (Auto) Baso % (Auto) Absolute Neuts (auto) Absolute Lymphs (auto) Absolute Monos (auto) Absolute Eos (auto) Absolute Basos (auto) Absolute Nucleated RBC Nucleated RBC % Sodium 137 Potassium 3.2 L Chloride 98 L Carbon Dioxide 33 H Anion Gap 6 BUN 17 Creatinine 1.02 H Est GFR ( Amer) 74.4 Est GFR (Non-Af Amer) 57.8 BUN/Creatinine Ratio 16.7 Glucose 40 L POC Glucose (mg/dL) 61 L 64 L Hemoglobin A1c Calcium 9.2 Magnesium 1.3 L Total Bilirubin AST ALT Alkaline Phosphatase Total Protein Albumin Globulin Albumin/Globulin Ratio Amylase Lipase Beta HCG, Quant Urine Color Urine Appearance Urine pH Ur Specific [place] Urine Protein Urine Ketones Urine Blood Urine Nitrate Urine Bilirubin Urine Urobilinogen Ur Leukocyte Esterase Urine Glucose 03/04/17 03/04/17 03/04/17 15:49 16:02 17:40 WBC RBC Hgb Hct MCV MCH MCHC RDW Plt Count MPV Neut % (Auto) Lymph % (Auto) Bladen % (Auto) Eos % (Auto) Baso % (Auto) Absolute Neuts (auto) Absolute Lymphs (auto) Absolute Monos (auto) Absolute Eos (auto) Absolute Basos (auto) Absolute Nucleated RBC Nucleated RBC % Sodium Potassium Chloride Carbon Dioxide Anion Gap BUN Creatinine Est GFR ( Amer) Est GFR (Non-Af Amer) BUN/Creatinine Ratio Glucose POC Glucose (mg/dL) 54 L 245 H 122 H Hemoglobin A1c Calcium Magnesium Total Bilirubin AST ALT Alkaline Phosphatase Total Protein Albumin Globulin Albumin/Globulin Ratio Amylase Lipase Beta HCG, Quant Urine Color Urine Appearance Urine pH Ur Specific [place] Urine Protein Urine Ketones Urine Blood Urine Nitrate Urine Bilirubin Urine Urobilinogen Ur Leukocyte Esterase Urine Glucose 03/04/17 03/04/17 03/05/17 18:20 19:54 06:17 WBC RBC Hgb Hct MCV MCH MCHC RDW Plt Count MPV Neut % (Auto) Lymph % (Auto) Bladen % (Auto) Eos % (Auto) Baso % (Auto) Absolute Neuts (auto) Absolute Lymphs (auto) Absolute Monos (auto) Absolute Eos (auto) Absolute Basos (auto) Absolute Nucleated RBC Nucleated RBC % Sodium Potassium Chloride Carbon Dioxide Anion Gap BUN Creatinine Est GFR ( Amer) Est GFR (Non-Af Amer) BUN/Creatinine Ratio Glucose POC Glucose (mg/dL) 132 H 127 H 158 H Hemoglobin A1c Calcium Magnesium Total Bilirubin AST ALT Alkaline Phosphatase Total Protein Albumin Globulin Albumin/Globulin Ratio Amylase Lipase Beta HCG, Quant Urine Color Urine Appearance Urine pH Ur Specific [place] Urine Protein Urine Ketones Urine Blood Urine Nitrate Urine Bilirubin Urine Urobilinogen Ur Leukocyte Esterase Urine Glucose 03/05/17 03/05/17 03/05/17 07:42 10:15 11:38 WBC RBC Hgb Hct MCV MCH MCHC RDW Plt Count MPV Neut % (Auto) Lymph % (Auto) Bladen % (Auto) Eos % (Auto) Baso % (Auto) Absolute Neuts (auto) Absolute Lymphs (auto) Absolute Monos (auto) Absolute Eos (auto) Absolute Basos (auto) Absolute Nucleated RBC Nucleated RBC % Sodium Potassium Chloride Carbon Dioxide Anion Gap BUN Creatinine Est GFR ( Amer) Est GFR (Non-Af Amer) BUN/Creatinine Ratio Glucose POC Glucose (mg/dL) 175 H Hemoglobin A1c Calcium Magnesium TNP 1.9 Total Bilirubin AST ALT Alkaline Phosphatase Total Protein Albumin Globulin Albumin/Globulin Ratio Amylase Lipase Beta HCG, Quant < 0.60 Urine Color Urine Appearance Urine pH Ur Specific [place] Urine Protein Urine Ketones Urine Blood Urine Nitrate Urine Bilirubin Urine Urobilinogen Ur Leukocyte Esterase Urine Glucose 03/05/17 03/05/17 03/05/17 11:44 17:00 17:30 WBC 13.7 H RBC 4.94 Hgb 15.2 Hct 44 MCV 90 MCH 31 MCHC 34 RDW 15 Plt Count 174 MPV 10 Neut % (Auto) 72.7 Lymph % (Auto) 19.1 L Bladen % (Auto) 7.4 Eos % (Auto) 0.5 Baso % (Auto) 0.3 Absolute Neuts (auto) 10.0 H Absolute Lymphs (auto) 2.6 Absolute Monos (auto) 1.0 H Absolute Eos (auto) 0.1 Absolute Basos (auto) 0 Absolute Nucleated RBC 0.01 Nucleated RBC % 0 Sodium Potassium Chloride Carbon Dioxide Anion Gap BUN Creatinine Est GFR ( Amer) Est GFR (Non-Af Amer) BUN/Creatinine Ratio Glucose POC Glucose (mg/dL) 240 H 130 H Hemoglobin A1c Calcium Magnesium Total Bilirubin AST ALT Alkaline Phosphatase Total Protein Albumin Globulin Albumin/Globulin Ratio Amylase Lipase Beta HCG, Quant Urine Color Urine Appearance Urine pH Ur Specific [place] Urine Protein Urine Ketones Urine Blood Urine Nitrate Urine Bilirubin Urine Urobilinogen Ur Leukocyte Esterase Urine Glucose 03/05/17 03/05/17 03/05/17 17:30 21:35 21:40 WBC 13.5 H RBC 4.86 Hgb 15.0 Hct 44 MCV 90 MCH 31 MCHC 34 RDW 15 Plt Count 165 MPV 10 Neut % (Auto) 74.7 Lymph % (Auto) 17.2 L Bladen % (Auto) 7.6 Eos % (Auto) 0.1 Baso % (Auto) 0.4 Absolute Neuts (auto) 10.1 H Absolute Lymphs (auto) 2.3 Absolute Monos (auto) 1.0 H Absolute Eos (auto) 0 Absolute Basos (auto) 0.1 Absolute Nucleated RBC 0 Nucleated RBC % 0 Sodium Potassium Chloride Carbon Dioxide Anion Gap BUN Creatinine Est GFR ( Amer) Est GFR (Non-Af Amer) BUN/Creatinine Ratio Glucose POC Glucose (mg/dL) 80 Hemoglobin A1c 14.0 H Calcium Magnesium Total Bilirubin AST ALT Alkaline Phosphatase Total Protein Albumin Globulin Albumin/Globulin Ratio Amylase Lipase Beta HCG, Quant Urine Color Urine Appearance Urine pH Ur Specific [place] Urine Protein Urine Ketones Urine Blood Urine Nitrate Urine Bilirubin Urine Urobilinogen Ur Leukocyte Esterase Urine Glucose 03/05/17 03/06/17 03/06/17 21:40 01:12 04:24 WBC RBC Hgb Hct MCV MCH MCHC RDW Plt Count MPV Neut % (Auto) Lymph % (Auto) Bladen % (Auto) Eos % (Auto) Baso % (Auto) Absolute Neuts (auto) Absolute Lymphs (auto) Absolute Monos (auto) Absolute Eos (auto) Absolute Basos (auto) Absolute Nucleated RBC Nucleated RBC % Sodium 137 Potassium 3.0 L Chloride 90 L Carbon Dioxide 38 H Anion Gap 9 BUN 31 H Creatinine 1.44 H Est GFR ( Amer) 50.0 Est GFR (Non-Af Amer) 38.9 BUN/Creatinine Ratio 21.5 H Glucose 98 POC Glucose (mg/dL) 75 Hemoglobin A1c Calcium 10.0 Magnesium Total Bilirubin 0.50 AST 22 ALT 14 Alkaline Phosphatase 56 Total Protein 6.8 Albumin 3.6 Globulin 3.2 Albumin/Globulin Ratio 1.1 Amylase 29 Lipase 16 Beta HCG, Quant Urine Color Straw Urine Appearance Clear Urine pH 5.0 Ur Specific [place] 1.010 Urine Protein Negative Urine Ketones Negative Urine Blood Negative Urine Nitrate Negative Urine Bilirubin Negative Urine Urobilinogen Negative Ur Leukocyte Esterase Negative Urine Glucose 2+(150 mg/dl) H 03/06/17 07:36 WBC RBC Hgb Hct MCV MCH MCHC RDW Plt Count MPV Neut % (Auto) Lymph % (Auto) Bladen % (Auto) Eos % (Auto) Baso % (Auto) Absolute Neuts (auto) Absolute Lymphs (auto) Absolute Monos (auto) Absolute Eos (auto) Absolute Basos (auto) Absolute Nucleated RBC Nucleated RBC % Sodium Potassium Chloride Carbon Dioxide Anion Gap BUN Creatinine Est GFR ( Amer) Est GFR (Non-Af Amer) BUN/Creatinine Ratio Glucose POC Glucose (mg/dL) 90 Hemoglobin A1c Calcium Magnesium Total Bilirubin AST ALT Alkaline Phosphatase Total Protein Albumin Globulin Albumin/Globulin Ratio Amylase Lipase Beta HCG, Quant Urine Color Urine Appearance Urine pH Ur Specific [place] Urine Protein Urine Ketones Urine Blood Urine Nitrate Urine Bilirubin Urine Urobilinogen Ur Leukocyte Esterase Urine Glucose Interim video-EEG long-term monitoring report: #01 03/03: Background shows PDR 9, occasional diffuse moderate to high voltage slowing during less alert state/drowsiness. No discharges, no seizures, no patient events #02 03/04: Background as above except for some more frequent slowing in the same distribution as previously described. No clear epileptiform abnormalities. No seizures or patient events. #03 03/05: Patient mostly asleep the majority of the day. During waking, there was a greater degree of non-specific slowing than on the first day but no discharges. No seizures or patient events. EMU Exam - Exam Physical/Neurological Exam: Physical Exam: General: Asleep, wakes to voice but falls back to sleep easily Eyes: normal conjunctiva, pupils were equal and reactive. MSK: LE edema resolved. Derm: Small scabbed lesion noted over right tibia, present on admission Neurological Exam: Mental Status: Awake and alert. Oriented to person, place, and time. Fluent but simple speech. Comprehension intact. Affect appropriate. Pupils 3/3 to 2/2mm. Versions full, no nystagmus, Face symmetric. Tongue ML, palate elevates symmetrically. All limbs antigravity, full strength in UEs. Sensation intact to LT FTN without ataxia. Pt not asked to ambulate. EMU Progress Note Assessment/P - Assessment/Plan Assessment: 46 year old left-handed woman with multiple medical problems include poorly controlled diabetes with associated complications, tachycardia s/p pacemaker and episodes of possible seizures since 2009 which increased in frequency in 2015. These events are characterized by a sense of her breath cutting out, inability to speak and sometimes preceded by nausea. They seem improved on levetiracetam 1500mg BID but not resolved and her EEG was not convincing for epileptiform abnormalities. LTM undertaken to characterize events. No typical events recorded yet. Leg cramps have not been an issue since magnesium replaced. However, continued poor po intake, nausea and emesis continued with the last episode of emesis last night. Appreciate involvement of the hospitalist team and their assistance. Diuretics have been stopped, she's been given some IVF and started on Reglan. Abdominal exam benign, labs and KUB not concerning for pancreatitis or other acute abdominal process. Question contribution from diabetic gastroparesis vs viral gastroenteritis? Still sleepy today but afebrile, neuro exam non-focal, denies BROWN or abd pain. Plan: * Continue retirement video EEG monitoring to capture typical episodes * Seizure precautions * Ativan 1mg IV for seizure >3 minutes * decrease levetiracetam to 250mg tonight then d/c. * Tylenol or ibuprofen for pain. * Zofran IV 4mg q6hr prn nausea * continue other home meds with changes/holds per hospital medicine * diet per hospitalists. * Xarelto not ordered in error on admission, now restarted.
[2017-03-06 11:16] LABS: Albumin 2.9 g/dL (3.2-5.2); BUN/Creatinine Ratio 23.5 (8-20); Calcium 8.8 mg/dL (8.6-10.3); EGFR African American 55.2 (>60); Potassium 3.4 mmol/L (3.5-5.0); Total Bilirubin 0.5 mg/dL (0.2-1.0); Total Protein 5.9 g/dL (6.4-8.9)
[2017-03-06] MEDS: Magnesium Oxide TAB* 400 MG PO SCH ×3 (11:22→20:58)
[2017-03-06] MEDS: Potassium Chlor TAB* 20 MEQ TAB.ER PO SCH ×2 (11:23→18:33)
[2017-03-06] MEDS: URSODIOL 250 MG PO SCH ×2 (11:24→21:00)
[2017-03-06] MEDS: Rivaroxaban TAB(*) 20 MG TAB PO SCH (11:24)
[2017-03-06] MEDS: LUBIPROSTONE 24 MCG PO SCH ×2 (11:25→20:59)
--- NOTE | 2017-03-06 13:30 | PN ---
Subjective Date of Service: 03/06/17 Interval History: Pt is sleepy today, denies abd pain. Would like to try to eat a sandwich Objective Active Medications: Acetaminophen (Tylenol Tab*) 650 mg PO Q6H PRN PRN Reason: PAIN Last Admin: 03/04/17 03:59 Dose: 650 mg Albuterol (Ventolin 2.5 Mg/3 Ml Neb.Fabby*) 2.5 mg INH Q2H PRN PRN Reason: SOB/WHEEZING Aspirin (Aspirin Low Dose Tab*) 81 mg PO DAILY [facility] Last Admin: 03/06/17 09:19 Dose: 81 mg Atorvastatin Calcium (Lipitor*) 10 mg PO BEDTIME [facility] Last Admin: 03/05/17 22:58 Dose: 10 mg Cyanocobalamin (Vitamin B12 Tab*) 1,000 mcg PO QAM [facility] Last Admin: 03/06/17 09:20 Dose: 1,000 mcg Dextrose (D50w Syringe 50 Ml*) 12.5 gm IV PUSH DAILY PRN PRN Reason: BG <70 refractory to juice Dextrose (D50w Syringe 50 Ml*) 12.5 gm IV PUSH .FOR FS < 60 - SS PRN PRN Reason: FS < 60 Diphenhydramine HCl (Benadryl Po*) 25 mg PO Q6H PRN PRN Reason: ITCHING Gabapentin (Neurontin Cap(*)) 100 mg PO TID [facility] Last Admin: 03/06/17 09:20 Dose: 100 mg Sodium Chloride (Ns 0.9% 1000 Ml*) 1,000 mls @ 100 mls/hr IV PER RATE [facility] Last Admin: 03/06/17 08:31 Dose: 100 mls/hr Insulin Glargine (Lantus(*)) 35 units SUBCUT DAILY [facility] Last Admin: 03/06/17 09:16 Dose: 35 units Insulin Human Lispro (Humalog*) 0 units SUBCUT AC [facility] PRN Reason: Protocol Last Admin: 03/06/17 12:36 Dose: Not Given Isosorbide Mononitrate (Imdur Er Tab*) 45 mg PO DAILY [facility] Last Admin: 03/06/17 09:18 Dose: 45 mg Levetiracetam (Keppra Liq*) 375 mg PO BID [facility] Last Admin: 03/06/17 09:36 Dose: 375 mg Levothyroxine Sodium (Synthroid Tab*) 250 mcg PO DAILY@0600 [facility] Last Admin: 03/06/17 06:17 Dose: 250 mcg Linaclotide (Linzess (Nf)) 290 mcg PO DAILY [facility] Last Admin: 03/06/17 09:21 Dose: 290 mcg Lorazepam (Ativan Inj*) 1 mg IV Q8H PRN PRN Reason: Seizure > 3 minutes Lubiprostone (Amitiza (Nf)) 24 mcg PO BID [facility] Last Admin: 03/06/17 11:25 Dose: 24 mcg Magnesium Oxide (Magox 400 Tab*) 400 mg PO TID [facility] Last Admin: 03/06/17 11:22 Dose: 400 mg Metoclopramide HCl (Reglan Iv*) 10 mg IV Q6H PRN PRN Reason: NAUSEA/VOMITING Last Admin: 03/06/17 08:25 Dose: 10 mg Metoprolol Tartrate (Lopressor Tab*) 25 mg PO BID [facility] Mometasone Furoate/Formoterol Fumar (Dulera 100/5 Mdi*) 2 puff INH BID PRN PRN Reason: SOB/WHEEZING Omeprazole (Prilosec Cap*) 40 mg PO QPM [facility] Last Admin: 03/05/17 17:56 Dose: Not Given Ondansetron HCl (Zofran Inj*) 4 mg IV Q6H PRN PRN Reason: NAUSEA Last Admin: 03/05/17 13:39 Dose: 4 mg Potassium Chloride (Klor Con Er Tab*) 20 meq PO QPM [facility] Last Admin: 03/05/17 17:56 Dose: Not Given Potassium Chloride (Klor Con Er Tab*) 40 meq PO DAILY [facility] Last Admin: 03/06/17 11:23 Dose: 40 meq Rivaroxaban (Xarelto (*)) 20 mg PO DAILY [facility] Last Admin: 03/06/17 11:24 Dose: 20 mg Ursodiol (Sophie 250(Nf)) 250 mg PO BID [facility] Last Admin: 03/06/17 11:24 Dose: 250 mg Vital Signs 03/05/17 03/05/17 03/05/17 17:05 19:44 21:00 Temperature 97.9 F 98.4 F Pulse Rate 73 71 Respiratory 18 20 18 Rate Blood Pressure 112/58 100/45 (mmHg) O2 Sat by Pulse 92 91 Oximetry 0903/06/17 03/06/17 01:05 04:27 04:32 Temperature 97.9 F 98.5 F 98.5 F Pulse Rate 69 72 Respiratory Rate Blood Pressure 104/58 117/66 (mmHg) O2 Sat by Pulse Oximetry 03/06/17 03/06/17 03/06/17 07:40 08:48 12:00 Temperature 97.9 F Pulse Rate 70 Respiratory 16 16 16 Rate Blood Pressure 104/59 (mmHg) O2 Sat by Pulse 91 Oximetry 03/06/17 12:40 Temperature 97.5 F Pulse Rate 73 Respiratory 18 Rate Blood Pressure 95/51 (mmHg) O2 Sat by Pulse 96 Oximetry Oxygen Devices in Use Now: None Appearance: 46 yo F in nAD, AAOx2, difficult to keep engaged in conversation, prefers to keep her eyes closed, poor historian Eyes: No Scleral Icterus, PERRLA Ears/Nose/Mouth/Throat: NL Teeth, Lips, Gums, Mucous Membranes Moist Neck: NL Appearance and Movements; NL JVP, Trachea Midline Respiratory: Symmetrical Chest Expansion and Respiratory Effort, Clear to Auscultation Cardiovascular: NL Sounds; No Murmurs; No JVD, RRR Abdominal: NL Sounds; No Tenderness; No Distention, No Hepatosplenomegaly Lymphatic: No Cervical Adenopathy Extremities: No Clubbing, Cyanosis, - - trace pedal edema-appears markedly improved from prior Skin: - - excoriations on upper back Neurological: NL Muscle Strength and Tone Result Diagrams: 03/06/17 09:46 03/06/17 09:46 Assess/Plan/Problems-Billing Assessment: 46 year old left-handed woman with multiple medical problems include poorly controlled diabetes with associated complications, tachycardia s/p pacemaker and episodes of possible seizures since 2009 which increased in frequency in 2015 as well as , DM, HTN is seen in consult re: med comanagement when in EMU - Patient Problems (1) DM2 (diabetes mellitus, type 2) Comment: Cont Lantus eh lower dose of 25 U and ISS (2) Nausea and vomiting Comment: no abd pain, not nauseated anymore will advance diet cont Reglan prn (3) HTN (hypertension) Comment: BPO low normal due to low PO intake will cont lopressor, holding imdur (4) BRENT (acute kidney injury) Comment: due to dehydration Resolving Holding diuretics (5) Hypothyroidism Comment: cont home Synthroid dose (6) Atrial fibrillation Comment: currently in NSR, cont Xarelto and lopressor (7) Seizures Comment: currently monitored by Dr. Weeks (8) DVT prophylaxis Comment: cont Xarelto Status and Disposition: Tnak you for consult, will follow
[2017-03-06] MEDS: Omeprazole CAP* 20 MG PO SCH (18:33)
[2017-03-06] MEDS: Atorvastatin* 10 MG TAB PO SCH (20:56)
[2017-03-06] MEDS: Metoprolol Tartrate TAB* 25 MG PO SCH (20:58)
[2017-03-06] MEDS ORDERED: levETIRAcetam LIQ* 500 MG/5 ML UDC PO SCH (21:00)
[2017-03-07] MEDS: Levothyroxine TAB* 125 MCG TAB PO SCH (06:12)
[2017-03-07] MEDS: Insulin LISPRO* 1 UNITS UNIT SUBCUT SCH ×3 (08:48→17:18)
[2017-03-07] MEDS ORDERED: Insulin GLARGINE(*) 1 UNITS UNIT SUBCUT SCH (09:00)
[2017-03-07] MEDS: Aspirin Low Dose CHEW TAB* 81 MG PO SCH (09:08)
[2017-03-07] MEDS: Gabapentin CAP(*) 100 MG PO SCH ×3 (09:10→21:20)
[2017-03-07] MEDS: Cyanocobalamin TAB* 500 MCG PO SCH (09:10)
[2017-03-07] MEDS: LUBIPROSTONE 24 MCG PO SCH ×2 (09:11→21:17)
[2017-03-07] MEDS: LINACLOTIDE 145 MCG PO SCH (09:11)
[2017-03-07] MEDS: Magnesium Oxide TAB* 400 MG PO SCH ×3 (09:11→21:21)
[2017-03-07] MEDS: Potassium Chlor TAB* 20 MEQ TAB.ER PO SCH ×2 (09:12→17:20)
[2017-03-07] MEDS: Metoprolol Tartrate TAB* 25 MG PO SCH ×2 (09:12→21:20)
[2017-03-07] MEDS: URSODIOL 250 MG PO SCH ×2 (09:13→21:21)
[2017-03-07] MEDS: Rivaroxaban TAB(*) 20 MG TAB PO SCH (09:13)
--- NOTE | 2017-03-07 11:33 | PN ---
Epilepsy Service Progress Note - Subjective DOS 03/07/17 Pt denies further nausea, vomiting. She has still been sleeping most of the time. Tried to talk to her about what she likes to do at home, if she's bored, etc. and explained that I need her to try to stay awake during the day. Unclear whether she is sleeping so much because she's bored or if still recovering from her N/V episodes. No events - Medications Active Medications: Acetaminophen (Tylenol Tab*) 650 mg PO Q6H PRN PRN Reason: PAIN Last Admin: 03/04/17 03:59 Dose: 650 mg Albuterol (Ventolin 2.5 Mg/3 Ml Neb.Fabby*) 2.5 mg INH Q2H PRN PRN Reason: SOB/WHEEZING Aspirin (Aspirin Low Dose Tab*) 81 mg PO DAILY [facility] Last Admin: 03/07/17 09:08 Dose: 81 mg Atorvastatin Calcium (Lipitor*) 10 mg PO BEDTIME [facility] Last Admin: 03/06/17 20:56 Dose: 10 mg Cyanocobalamin (Vitamin B12 Tab*) 1,000 mcg PO QAM [facility] Last Admin: 03/07/17 09:10 Dose: 1,000 mcg Dextrose (D50w Syringe 50 Ml*) 12.5 gm IV PUSH DAILY PRN PRN Reason: BG <70 refractory to juice Dextrose (D50w Syringe 50 Ml*) 12.5 gm IV PUSH .FOR FS < 60 - SS PRN PRN Reason: FS < 60 Diphenhydramine HCl (Benadryl Po*) 25 mg PO Q6H PRN PRN Reason: ITCHING Gabapentin (Neurontin Cap(*)) 100 mg PO TID [facility] Last Admin: 03/07/17 09:10 Dose: 100 mg Sodium Chloride (Ns 0.9% 1000 Ml*) 1,000 mls @ 100 mls/hr IV PER RATE [facility] Last Admin: 03/06/17 08:31 Dose: 100 mls/hr Insulin Glargine (Lantus(*)) 25 units SUBCUT DAILY [facility] Last Admin: 03/07/17 09:14 Dose: 25 units Insulin Human Lispro (Humalog*) 0 units SUBCUT AC [facility] PRN Reason: Protocol Last Admin: 03/07/17 08:48 Dose: Not Given Levothyroxine Sodium (Synthroid Tab*) 250 mcg PO DAILY@0600 [facility] Last Admin: 03/07/17 06:12 Dose: 250 mcg Linaclotide (Linzess (Nf)) 290 mcg PO DAILY [facility] Last Admin: 03/07/17 09:11 Dose: 290 mcg Lorazepam (Ativan Inj*) 1 mg IV Q8H PRN PRN Reason: Seizure > 3 minutes Lubiprostone (Amitiza (Nf)) 24 mcg PO BID [facility] Last Admin: 03/07/17 09:11 Dose: 24 mcg Magnesium Oxide (Magox 400 Tab*) 400 mg PO TID [facility] Last Admin: 03/07/17 09:11 Dose: 400 mg Metoclopramide HCl (Reglan Iv*) 10 mg IV Q6H PRN PRN Reason: NAUSEA/VOMITING Last Admin: 03/06/17 08:25 Dose: 10 mg Metoprolol Tartrate (Lopressor Tab*) 25 mg PO BID [facility] Last Admin: 03/07/17 09:12 Dose: 25 mg Mometasone Furoate/Formoterol Fumar (Dulera 100/5 Mdi*) 2 puff INH BID PRN PRN Reason: SOB/WHEEZING Omeprazole (Prilosec Cap*) 40 mg PO QPM [facility] Last Admin: 03/06/17 18:33 Dose: 40 mg Ondansetron HCl (Zofran Inj*) 4 mg IV Q6H PRN PRN Reason: NAUSEA Last Admin: 03/05/17 13:39 Dose: 4 mg Potassium Chloride (Klor Con Er Tab*) 20 meq PO QPM [facility] Last Admin: 03/06/17 18:33 Dose: 20 meq Potassium Chloride (Klor Con Er Tab*) 40 meq PO DAILY [facility] Last Admin: 03/07/17 09:12 Dose: 40 meq Rivaroxaban (Xarelto (*)) 20 mg PO DAILY [facility] Last Admin: 03/07/17 09:13 Dose: 20 mg Ursodiol (Sophie 250(Nf)) 250 mg PO BID [facility] Last Admin: 03/07/17 09:13 Dose: 250 mg EMU Diagnostics - Diagnostic Most Recent Vital Signs: Vital Signs: Temp Pulse Resp BP Pulse Ox 97.3 F 73 19 118/68 95 03/07/17 07:15 03/07/17 07:15 03/07/17 07:15 03/07/17 07:15 03/06/17 19:59 Lab Results: Laboratory Tests 03/04/17 03/04/17 03/04/17 11:30 13:51 14:22 WBC RBC Hgb Hct MCV MCH MCHC RDW Plt Count MPV Neut % (Auto) Lymph % (Auto) [place] % (Auto) Eos % (Auto) Baso % (Auto) Absolute Neuts (auto) Absolute Lymphs (auto) Absolute Monos (auto) Absolute Eos (auto) Absolute Basos (auto) Absolute Nucleated RBC Nucleated RBC % Sodium Potassium Chloride Carbon Dioxide Anion Gap BUN Creatinine Est GFR ( Amer) Est GFR (Non-Af Amer) BUN/Creatinine Ratio Glucose POC Glucose (mg/dL) 150 H 53 L 59 L Hemoglobin A1c Calcium Magnesium Total Bilirubin AST ALT Alkaline Phosphatase Total Protein Albumin Globulin Albumin/Globulin Ratio Amylase Lipase Beta HCG, Quant Urine Color Urine Appearance Urine pH Ur Specific [place] Urine Protein Urine Ketones Urine Blood Urine Nitrate Urine Bilirubin Urine Urobilinogen Ur Leukocyte Esterase Urine Glucose 03/04/17 03/04/17 03/04/17 14:40 15:08 15:19 WBC RBC Hgb Hct MCV MCH MCHC RDW Plt Count MPV Neut % (Auto) Lymph % (Auto) [place] % (Auto) Eos % (Auto) Baso % (Auto) Absolute Neuts (auto) Absolute Lymphs (auto) Absolute Monos (auto) Absolute Eos (auto) Absolute Basos (auto) Absolute Nucleated RBC Nucleated RBC % Sodium 137 Potassium 3.2 L Chloride 98 L Carbon Dioxide 33 H Anion Gap 6 BUN 17 Creatinine 1.02 H Est GFR ( Amer) 74.4 Est GFR (Non-Af Amer) 57.8 BUN/Creatinine Ratio 16.7 Glucose 40 L POC Glucose (mg/dL) 61 L 64 L Hemoglobin A1c Calcium 9.2 Magnesium 1.3 L Total Bilirubin AST ALT Alkaline Phosphatase Total Protein Albumin Globulin Albumin/Globulin Ratio Amylase Lipase Beta HCG, Quant Urine Color Urine Appearance Urine pH Ur Specific [place] Urine Protein Urine Ketones Urine Blood Urine Nitrate Urine Bilirubin Urine Urobilinogen Ur Leukocyte Esterase Urine Glucose 03/04/17 03/04/17 03/04/17 15:49 16:02 17:40 WBC RBC Hgb Hct MCV MCH MCHC RDW Plt Count MPV Neut % (Auto) Lymph % (Auto) [place] % (Auto) Eos % (Auto) Baso % (Auto) Absolute Neuts (auto) Absolute Lymphs (auto) Absolute Monos (auto) Absolute Eos (auto) Absolute Basos (auto) Absolute Nucleated RBC Nucleated RBC % Sodium Potassium Chloride Carbon Dioxide Anion Gap BUN Creatinine Est GFR ( Amer) Est GFR (Non-Af Amer) BUN/Creatinine Ratio Glucose POC Glucose (mg/dL) 54 L 245 H 122 H Hemoglobin A1c Calcium Magnesium Total Bilirubin AST ALT Alkaline Phosphatase Total Protein Albumin Globulin Albumin/Globulin Ratio Amylase Lipase Beta HCG, Quant Urine Color Urine Appearance Urine pH Ur Specific [place] Urine Protein Urine Ketones Urine Blood Urine Nitrate Urine Bilirubin Urine Urobilinogen Ur Leukocyte Esterase Urine Glucose 03/04/17 03/04/17 03/05/17 18:20 19:54 06:17 WBC RBC Hgb Hct MCV MCH MCHC RDW Plt Count MPV Neut % (Auto) Lymph % (Auto) [place] % (Auto) Eos % (Auto) Baso % (Auto) Absolute Neuts (auto) Absolute Lymphs (auto) Absolute Monos (auto) Absolute Eos (auto) Absolute Basos (auto) Absolute Nucleated RBC Nucleated RBC % Sodium Potassium Chloride Carbon Dioxide Anion Gap BUN Creatinine Est GFR ( Amer) Est GFR (Non-Af Amer) BUN/Creatinine Ratio Glucose POC Glucose (mg/dL) 132 H 127 H 158 H Hemoglobin A1c Calcium Magnesium Total Bilirubin AST ALT Alkaline Phosphatase Total Protein Albumin Globulin Albumin/Globulin Ratio Amylase Lipase Beta HCG, Quant Urine Color Urine Appearance Urine pH Ur Specific [place] Urine Protein Urine Ketones Urine Blood Urine Nitrate Urine Bilirubin Urine Urobilinogen Ur Leukocyte Esterase Urine Glucose 03/05/17 03/05/17 03/05/17 07:42 10:15 11:38 WBC RBC Hgb Hct MCV MCH MCHC RDW Plt Count MPV Neut % (Auto) Lymph % (Auto) [place] % (Auto) Eos % (Auto) Baso % (Auto) Absolute Neuts (auto) Absolute Lymphs (auto) Absolute Monos (auto) Absolute Eos (auto) Absolute Basos (auto) Absolute Nucleated RBC Nucleated RBC % Sodium Potassium Chloride Carbon Dioxide Anion Gap BUN Creatinine Est GFR ( Amer) Est GFR (Non-Af Amer) BUN/Creatinine Ratio Glucose POC Glucose (mg/dL) 175 H Hemoglobin A1c Calcium Magnesium TNP 1.9 Total Bilirubin AST ALT Alkaline Phosphatase Total Protein Albumin Globulin Albumin/Globulin Ratio Amylase Lipase Beta HCG, Quant < 0.60 Urine Color Urine Appearance Urine pH Ur Specific [place] Urine Protein Urine Ketones Urine Blood Urine Nitrate Urine Bilirubin Urine Urobilinogen Ur Leukocyte Esterase Urine Glucose 03/05/17 03/05/17 03/05/17 11:44 17:00 17:30 WBC 13.7 H RBC 4.94 Hgb 15.2 Hct 44 MCV 90 MCH 31 MCHC 34 RDW 15 Plt Count 174 MPV 10 Neut % (Auto) 72.7 Lymph % (Auto) 19.1 L [place] % (Auto) 7.4 Eos % (Auto) 0.5 Baso % (Auto) 0.3 Absolute Neuts (auto) 10.0 H Absolute Lymphs (auto) 2.6 Absolute Monos (auto) 1.0 H Absolute Eos (auto) 0.1 Absolute Basos (auto) 0 Absolute Nucleated RBC 0.01 Nucleated RBC % 0 Sodium Potassium Chloride Carbon Dioxide Anion Gap BUN Creatinine Est GFR ( Amer) Est GFR (Non-Af Amer) BUN/Creatinine Ratio Glucose POC Glucose (mg/dL) 240 H 130 H Hemoglobin A1c Calcium Magnesium Total Bilirubin AST ALT Alkaline Phosphatase Total Protein Albumin Globulin Albumin/Globulin Ratio Amylase Lipase Beta HCG, Quant Urine Color Urine Appearance Urine pH Ur Specific [place] Urine Protein Urine Ketones Urine Blood Urine Nitrate Urine Bilirubin Urine Urobilinogen Ur Leukocyte Esterase Urine Glucose 03/05/17 03/05/17 03/05/17 17:30 21:35 21:40 WBC 13.5 H RBC 4.86 Hgb 15.0 Hct 44 MCV 90 MCH 31 MCHC 34 RDW 15 Plt Count 165 MPV 10 Neut % (Auto) 74.7 Lymph % (Auto) 17.2 L [place] % (Auto) 7.6 Eos % (Auto) 0.1 Baso % (Auto) 0.4 Absolute Neuts (auto) 10.1 H Absolute Lymphs (auto) 2.3 Absolute Monos (auto) 1.0 H Absolute Eos (auto) 0 Absolute Basos (auto) 0.1 Absolute Nucleated RBC 0 Nucleated RBC % 0 Sodium Potassium Chloride Carbon Dioxide Anion Gap BUN Creatinine Est GFR ( Amer) Est GFR (Non-Af Amer) BUN/Creatinine Ratio Glucose POC Glucose (mg/dL) 80 Hemoglobin A1c 14.0 H Calcium Magnesium Total Bilirubin AST ALT Alkaline Phosphatase Total Protein Albumin Globulin Albumin/Globulin Ratio Amylase Lipase Beta HCG, Quant Urine Color Urine Appearance Urine pH Ur Specific [place] Urine Protein Urine Ketones Urine Blood Urine Nitrate Urine Bilirubin Urine Urobilinogen Ur Leukocyte Esterase Urine Glucose 03/05/17 03/06/17 03/06/17 21:40 01:12 04:24 WBC RBC Hgb Hct MCV MCH MCHC RDW Plt Count MPV Neut % (Auto) Lymph % (Auto) [place] % (Auto) Eos % (Auto) Baso % (Auto) Absolute Neuts (auto) Absolute Lymphs (auto) Absolute Monos (auto) Absolute Eos (auto) Absolute Basos (auto) Absolute Nucleated RBC Nucleated RBC % Sodium 137 Potassium 3.0 L Chloride 90 L Carbon Dioxide 38 H Anion Gap 9 BUN 31 H Creatinine 1.44 H Est GFR ( Amer) 50.0 Est GFR (Non-Af Amer) 38.9 BUN/Creatinine Ratio 21.5 H Glucose 98 POC Glucose (mg/dL) 75 Hemoglobin A1c Calcium 10.0 Magnesium Total Bilirubin 0.50 AST 22 ALT 14 Alkaline Phosphatase 56 Total Protein 6.8 Albumin 3.6 Globulin 3.2 Albumin/Globulin Ratio 1.1 Amylase 29 Lipase 16 Beta HCG, Quant Urine Color Straw Urine Appearance Clear Urine pH 5.0 Ur Specific [place] 1.010 Urine Protein Negative Urine Ketones Negative Urine Blood Negative Urine Nitrate Negative Urine Bilirubin Negative Urine Urobilinogen Negative Ur Leukocyte Esterase Negative Urine Glucose 2+(150 mg/dl) H 03/06/17 03/06/17 03/06/17 07:36 09:46 09:46 WBC 13.4 H RBC 4.62 Hgb 14.0 Hct 42 MCV 91 MCH 30 MCHC 33 RDW 14 Plt Count 168 MPV 11 H Neut % (Auto) 63.2 Lymph % (Auto) 27.4 [place] % (Auto) 8.9 Eos % (Auto) 0.3 Baso % (Auto) 0.2 Absolute Neuts (auto) 8.5 H Absolute Lymphs (auto) 3.7 Absolute Monos (auto) 1.2 H Absolute Eos (auto) 0 Absolute Basos (auto) 0 Absolute Nucleated RBC 0.01 Nucleated RBC % 0 Sodium 137 Potassium 3.4 L Chloride 93 L Carbon Dioxide 34 H Anion Gap 10 BUN 31 H Creatinine 1.32 H Est GFR ( Amer) 55.2 Est GFR (Non-Af Amer) 43.0 BUN/Creatinine Ratio 23.5 H Glucose 145 H POC Glucose (mg/dL) 90 Hemoglobin A1c Calcium 8.8 Magnesium Total Bilirubin 0.50 AST 20 ALT 13 Alkaline Phosphatase 54 Total Protein 5.9 L Albumin 2.9 L Globulin 3.0 Albumin/Globulin Ratio 1.0 Amylase Lipase Beta HCG, Quant Urine Color Urine Appearance Urine pH Ur Specific [place] Urine Protein Urine Ketones Urine Blood Urine Nitrate Urine Bilirubin Urine Urobilinogen Ur Leukocyte Esterase Urine Glucose 03/06/17 03/06/17 03/06/17 12:12 16:37 21:28 WBC RBC Hgb Hct MCV MCH MCHC RDW Plt Count MPV Neut % (Auto) Lymph % (Auto) [place] % (Auto) Eos % (Auto) Baso % (Auto) Absolute Neuts (auto) Absolute Lymphs (auto) Absolute Monos (auto) Absolute Eos (auto) Absolute Basos (auto) Absolute Nucleated RBC Nucleated RBC % Sodium Potassium Chloride Carbon Dioxide Anion Gap BUN Creatinine Est GFR ( Amer) Est GFR (Non-Af Amer) BUN/Creatinine Ratio Glucose POC Glucose (mg/dL) 81 83 175 H Hemoglobin A1c Calcium Magnesium Total Bilirubin AST ALT Alkaline Phosphatase Total Protein Albumin Globulin Albumin/Globulin Ratio Amylase Lipase Beta HCG, Quant Urine Color Urine Appearance Urine pH Ur Specific [place] Urine Protein Urine Ketones Urine Blood Urine Nitrate Urine Bilirubin Urine Urobilinogen Ur Leukocyte Esterase Urine Glucose 03/07/17 08:47 WBC RBC Hgb Hct MCV MCH MCHC RDW Plt Count MPV Neut % (Auto) Lymph % (Auto) [place] % (Auto) Eos % (Auto) Baso % (Auto) Absolute Neuts (auto) Absolute Lymphs (auto) Absolute Monos (auto) Absolute Eos (auto) Absolute Basos (auto) Absolute Nucleated RBC Nucleated RBC % Sodium Potassium Chloride Carbon Dioxide Anion Gap BUN Creatinine Est GFR ( Amer) Est GFR (Non-Af Amer) BUN/Creatinine Ratio Glucose POC Glucose (mg/dL) 85 Hemoglobin A1c Calcium Magnesium Total Bilirubin AST ALT Alkaline Phosphatase Total Protein Albumin Globulin Albumin/Globulin Ratio Amylase Lipase Beta HCG, Quant Urine Color Urine Appearance Urine pH Ur Specific [place] Urine Protein Urine Ketones Urine Blood Urine Nitrate Urine Bilirubin Urine Urobilinogen Ur Leukocyte Esterase Urine Glucose Interim video-EEG long-term monitoring report: #01 03/03: Background shows PDR 9, occasional diffuse moderate to high voltage slowing during less alert state/drowsiness. No discharges, no seizures, no patient events #02 03/04: Background as above except for some more frequent slowing in the same distribution as previously described. No clear epileptiform abnormalities. No seizures or patient events. #03 03/05: Patient mostly asleep the majority of the day. During waking, there was a greater degree of non-specific slowing than on the first day but no discharges. No seizures or patient events. #04 03/06: Again there is a greater degree of slowing than the first day as the patient spends much of waking time in an apparent drowsy state. There are some periods of better background which appear similar to the first day's recording. Still much of the time spent sleeping. No seizures or patients. No discharges. EMU Exam - Exam Physical/Neurological Exam: Physical Exam: General: Asleep, wakes to voice Eyes: normal conjunctiva, pupils were equal and reactive. MSK: LE edema resolved. Derm: Small scabbed lesion noted over right tibia, present on admission Neurological Exam: Mental Status: Awake and alert. Oriented to person, place, and time. Fluent but simple speech. Comprehension intact. Affect appropriate. Pupils 3/3 to 2/2mm. Versions full, no nystagmus, Face symmetric. Tongue ML, palate elevates symmetrically. All limbs antigravity, full strength in UEs. Sensation intact to LT FTN without ataxia. Pt not asked to ambulate. EMU Progress Note Assessment/P - Assessment/Plan Assessment: 46 year old left-handed woman with multiple medical problems include poorly controlled diabetes with associated complications, tachycardia s/p pacemaker and episodes of possible seizures since 2009 which increased in frequency in 2015. These events are characterized by a sense of her breath cutting out, inability to speak and sometimes preceded by nausea. They seem improved on levetiracetam 1500mg BID but not resolved and her EEG was not convincing for epileptiform abnormalities. LTM undertaken to characterize events. No typical events recorded yet. Leg cramps have not been an issue since magnesium replaced. N/V resolved but she continues to sleep much of the day. BGs have been in the normal to high range, but still lower than what she runs at home. Similar for BPs. Asked pt to get up to chair today with plan to stay awake as much as possible. Plan: * Continue [employer] video EEG monitoring to capture typical episodes * Seizure precautions * Ativan 1mg IV for seizure >3 minutes * levetiracetam d/c'd after PM dose on 03/06. * Tylenol for pain. * Zofran IV 4mg q6hr prn nausea * continue other home meds with changes/holds per hospital medicine * back on consistent carb diet * offered coloring, movies, watching tv, drawing, etc to try and keep pt awake
[2017-03-07 12:20] LABS: Hematocrit 48 % (35-47); Hemoglobin 16.2 g/dl (12.0-16.0); Mean Corpuscular HGB Conc 34 g/dl (31-36); Mean Corpuscular Hemoglobin 31 pg (27-31); Mean Corpuscular Volume 91 fL (80-97); Mean Platelet Volume 10 um3 (7.4-10.4); Red Blood Count 5.25 10^6/ul (4.0-5.4); Red Cell Distribution Width 15 % (10.5-15); White Blood Count 13.1 10^3/ul (3.5-10.8)
[2017-03-07 12:34] LABS: BUN/Creatinine Ratio 20.6 (8-20); Calcium 9.7 mg/dL (8.6-10.3); EGFR African American 74.4 (>60); EGFR Non-African American 57.8 (>60); Potassium 3.9 mmol/L (3.5-5.0)
[2017-03-07] MEDS ORDERED: NS 0.9% 1000 ML* 1,000 ML IV SCH ×2 (13:45→16:32)
[2017-03-07] MEDS: NS 0.9% 1000 ML* 1,000 ML IV SCH (14:29)
--- NOTE | 2017-03-07 16:33 | PN ---
Subjective Date of Service: 03/07/17 Interval History: pt still sleepy , but allowed to lead herself to the chair an started eating lunch during my visit. had diarrhea today, denies abd pain Objective Active Medications: Acetaminophen (Tylenol Tab*) 650 mg PO Q6H PRN PRN Reason: PAIN Last Admin: 03/04/17 03:59 Dose: 650 mg Albuterol (Ventolin 2.5 Mg/3 Ml Neb.Fabby*) 2.5 mg INH Q2H PRN PRN Reason: SOB/WHEEZING Aspirin (Aspirin Low Dose Tab*) 81 mg PO DAILY [facility] Last Admin: 03/07/17 09:08 Dose: 81 mg Atorvastatin Calcium (Lipitor*) 10 mg PO BEDTIME [facility] Last Admin: 03/06/17 20:56 Dose: 10 mg Cyanocobalamin (Vitamin B12 Tab*) 1,000 mcg PO QAM [facility] Last Admin: 03/07/17 09:10 Dose: 1,000 mcg Dextrose (D50w Syringe 50 Ml*) 12.5 gm IV PUSH DAILY PRN PRN Reason: BG <70 refractory to juice Dextrose (D50w Syringe 50 Ml*) 12.5 gm IV PUSH .FOR FS < 60 - SS PRN PRN Reason: FS < 60 Diphenhydramine HCl (Benadryl Po*) 25 mg PO Q6H PRN PRN Reason: ITCHING Gabapentin (Neurontin Cap(*)) 100 mg PO TID [facility] Last Admin: 03/07/17 14:18 Dose: 100 mg Sodium Chloride (Ns 0.9% 1000 Ml*) 1,000 mls @ 100 mls/hr IV PER RATE [facility] Last Admin: 03/07/17 14:29 Dose: 75 mls/hr Sodium Chloride (Ns 0.9% 1000 Ml*) 1,000 mls @ 75 mls/hr IV PER RATE [facility] Insulin Glargine (Lantus(*)) 25 units SUBCUT DAILY [facility] Last Admin: 03/07/17 09:14 Dose: 25 units Insulin Human Lispro (Humalog*) 0 units SUBCUT AC [facility] PRN Reason: Protocol Last Admin: 03/07/17 12:53 Dose: Not Given Levothyroxine Sodium (Synthroid Tab*) 250 mcg PO DAILY@0600 [facility] Last Admin: 03/07/17 06:12 Dose: 250 mcg Linaclotide (Linzess (Nf)) 290 mcg PO DAILY [facility] Last Admin: 03/07/17 09:11 Dose: 290 mcg Lorazepam (Ativan Inj*) 1 mg IV Q8H PRN PRN Reason: Seizure > 3 minutes Lubiprostone (Amitiza (Nf)) 24 mcg PO BID [facility] Last Admin: 03/07/17 09:11 Dose: 24 mcg Magnesium Oxide (Magox 400 Tab*) 400 mg PO TID [facility] Last Admin: 03/07/17 14:18 Dose: 400 mg Metoclopramide HCl (Reglan Iv*) 10 mg IV Q6H PRN PRN Reason: NAUSEA/VOMITING Last Admin: 03/06/17 08:25 Dose: 10 mg Metoprolol Tartrate (Lopressor Tab*) 25 mg PO BID [facility] Last Admin: 03/07/17 09:12 Dose: 25 mg Mometasone Furoate/Formoterol Fumar (Dulera 100/5 Mdi*) 2 puff INH BID PRN PRN Reason: SOB/WHEEZING Omeprazole (Prilosec Cap*) 40 mg PO QPM [facility] Last Admin: 03/06/17 18:33 Dose: 40 mg Ondansetron HCl (Zofran Inj*) 4 mg IV Q6H PRN PRN Reason: NAUSEA Last Admin: 03/05/17 13:39 Dose: 4 mg Potassium Chloride (Klor Con Er Tab*) 20 meq PO QPM [facility] Last Admin: 03/06/17 18:33 Dose: 20 meq Potassium Chloride (Klor Con Er Tab*) 40 meq PO DAILY [facility] Last Admin: 03/07/17 09:12 Dose: 40 meq Rivaroxaban (Xarelto (*)) 20 mg PO DAILY [facility] Last Admin: 03/07/17 09:13 Dose: 20 mg Ursodiol (Sophie 250(Nf)) 250 mg PO BID [facility] Last Admin: 03/07/17 09:13 Dose: 250 mg Vital Signs 03/06/17 03/06/17 03/06/17 16:30 19:59 20:07 Temperature 98.7 F 98.3 F Pulse Rate 73 70 Respiratory 20 20 Rate Blood Pressure 104/52 116/65 (mmHg) O2 Sat by Pulse 94 95 Oximetry 03/07/17 03/07/17 03/07/17 01:44 07:15 13:39 Temperature 98.4 F 97.3 F Pulse Rate 77 73 Respiratory 19 16 Rate Blood Pressure 115/68 118/68 (mmHg) O2 Sat by Pulse Oximetry 03/07/17 03/07/17 13:51 13:54 Temperature Pulse Rate Respiratory 16 16 Rate Blood Pressure (mmHg) O2 Sat by Pulse Oximetry Oxygen Devices in Use Now: None Appearance: 46 yo F in nAD, aAOx3 Eyes: No Scleral Icterus, PERRLA Ears/Nose/Mouth/Throat: NL Teeth, Lips, Gums, Mucous Membranes Moist Neck: NL Appearance and Movements; NL JVP, Trachea Midline Respiratory: Symmetrical Chest Expansion and Respiratory Effort, Clear to Auscultation Cardiovascular: NL Sounds; No Murmurs; No JVD, RRR Abdominal: - - minimal epigastric tenderness, no rebound, no guarding, BS+ Lymphatic: No Cervical Adenopathy Extremities: No Clubbing, Cyanosis, - - trace pedal edema b/l Skin: No Rash or Ulcers, No Nodules or Sclerosis Neurological: Alert and Oriented x 3, NL Muscle Strength and Tone Result Diagrams: 03/07/17 11:53 03/07/17 11:53 Microbiology and Other Data: Microbiology 03/06/17 01:12 Urine Culture - Final Urine Assess/Plan/Problems-Billing Assessment: 46 year old left-handed woman with multiple medical problems include poorly controlled diabetes with associated complications, tachycardia s/p pacemaker and episodes of possible seizures since 2009 which increased in frequency in 2014 as well as , DM, HTN is seen in consult re: med comanagement when in EMU - Patient Problems (1) DM2 (diabetes mellitus, type 2) Comment: Cont Lantus at a lower dose of 25 U and ISS controlled (2) Nausea and vomiting Comment: not nauseated anymore cont ADA diet due to low PO intake and diarrhea will start gentle IVF (3) HTN (hypertension) Comment: BP low normal due to low PO intake will cont lopressor, holding imdur (4) BRENT (acute kidney injury) Comment: due to dehydration Resolving Holding diuretics (5) Hypothyroidism Comment: cont home Synthroid dose (6) Atrial fibrillation Comment: currently in NSR, cont Xarelto and lopressor (7) Seizures Comment: currently monitored by Dr. Weeks (8) DVT prophylaxis Comment: cont Xarelto Status and Disposition: Thank you for consult, will follow
[2017-03-07] MEDS: Omeprazole CAP* 20 MG PO SCH (17:20)
[2017-03-07] MEDS: Atorvastatin* 10 MG TAB PO SCH (21:20)
[2017-03-08] MEDS: Levothyroxine TAB* 125 MCG TAB PO SCH (06:09)
[2017-03-08] MEDS: Acetaminophen TAB* 325 MG PO PRN (06:15)
[2017-03-08] MEDS: Insulin LISPRO* 1 UNITS UNIT SUBCUT SCH ×3 (07:57→17:50)
[2017-03-08] MEDS: Cyanocobalamin TAB* 500 MCG PO SCH (08:29)
[2017-03-08] MEDS: Gabapentin CAP(*) 100 MG PO SCH ×3 (08:30→20:44)
[2017-03-08] MEDS: LINACLOTIDE 145 MCG PO SCH (08:31)
[2017-03-08] MEDS: URSODIOL 250 MG PO SCH ×2 (08:32→20:44)
[2017-03-08] MEDS: LUBIPROSTONE 24 MCG PO SCH ×2 (08:32→20:44)
[2017-03-08] MEDS: Insulin GLARGINE(*) 1 UNITS UNIT SUBCUT SCH (08:33)
[2017-03-08] MEDS: Potassium Chlor TAB* 20 MEQ TAB.ER PO SCH ×2 (09:49→17:47)
[2017-03-08] MEDS: Rivaroxaban TAB(*) 20 MG TAB PO SCH (09:51)
[2017-03-08] MEDS: Magnesium Oxide TAB* 400 MG PO SCH ×3 (09:52→20:45)
[2017-03-08] MEDS: Metoprolol Tartrate TAB* 25 MG PO SCH ×2 (09:52→20:45)
[2017-03-08] MEDS: Aspirin Low Dose CHEW TAB* 81 MG PO SCH (09:52)
--- NOTE | 2017-03-08 13:50 | PN ---
Epilepsy Service Progress Note - Subjective DOS 03/08/17 Patient seen around lunchtime. She denied recurrent nausea or vomiting. Had some diarrhea yesterday, none further today. Eating ok. BGs continue to be better than at home. I spoke with Gisell, her friend and proxy, to update her and she said Lydia's BGs have never been this good in the 20 years she has known her. Explained that she hasn't had any events yet, was sick with GI bug vs diabetic gastroparesis and is recovering slowly. Gisell may be up to visit today. - Medications Active Medications: Acetaminophen (Tylenol Tab*) 650 mg PO Q6H PRN PRN Reason: PAIN Last Admin: 03/08/17 06:15 Dose: 650 mg Albuterol (Ventolin 2.5 Mg/3 Ml Neb.Fabby*) 2.5 mg INH Q2H PRN PRN Reason: SOB/WHEEZING Aspirin (Aspirin Low Dose Tab*) 81 mg PO DAILY [facility] Last Admin: 03/08/17 09:52 Dose: 81 mg Atorvastatin Calcium (Lipitor*) 10 mg PO BEDTIME [facility] Last Admin: 03/07/17 21:20 Dose: 10 mg Cyanocobalamin (Vitamin B12 Tab*) 1,000 mcg PO QAM [facility] Last Admin: 03/08/17 08:29 Dose: 1,000 mcg Dextrose (D50w Syringe 50 Ml*) 12.5 gm IV PUSH DAILY PRN PRN Reason: BG <70 refractory to juice Dextrose (D50w Syringe 50 Ml*) 12.5 gm IV PUSH .FOR FS < 60 - SS PRN PRN Reason: FS < 60 Diphenhydramine HCl (Benadryl Po*) 25 mg PO Q6H PRN PRN Reason: ITCHING Gabapentin (Neurontin Cap(*)) 100 mg PO TID [facility] Last Admin: 03/08/17 08:30 Dose: 100 mg Sodium Chloride (Ns 0.9% 1000 Ml*) 1,000 mls @ 75 mls/hr IV PER RATE [facility] Insulin Glargine (Lantus(*)) 30 units SUBCUT DAILY [facility] Last Admin: 03/08/17 08:33 Dose: 30 units Insulin Human Lispro (Humalog*) 0 units SUBCUT AC [facility] PRN Reason: Protocol Last Admin: 03/08/17 12:17 Dose: 6 units Levothyroxine Sodium (Synthroid Tab*) 250 mcg PO DAILY@0600 [facility] Last Admin: 03/08/17 06:09 Dose: 250 mcg Linaclotide (Linzess (Nf)) 290 mcg PO DAILY [facility] Last Admin: 03/08/17 08:31 Dose: 290 mcg Lorazepam (Ativan Inj*) 1 mg IV Q8H PRN PRN Reason: Seizure > 3 minutes Lubiprostone (Amitiza (Nf)) 24 mcg PO BID [facility] Last Admin: 03/08/17 08:32 Dose: 24 mcg Magnesium Oxide (Magox 400 Tab*) 400 mg PO TID [facility] Last Admin: 03/08/17 09:52 Dose: 400 mg Metoclopramide HCl (Reglan Iv*) 10 mg IV Q6H PRN PRN Reason: NAUSEA/VOMITING Last Admin: 03/06/17 08:25 Dose: 10 mg Metoprolol Tartrate (Lopressor Tab*) 25 mg PO BID [facility] Last Admin: 03/08/17 09:52 Dose: 25 mg Mometasone Furoate/Formoterol Fumar (Dulera 100/5 Mdi*) 2 puff INH BID PRN PRN Reason: SOB/WHEEZING Omeprazole (Prilosec Cap*) 40 mg PO QPM [facility] Last Admin: 03/07/17 17:20 Dose: 40 mg Ondansetron HCl (Zofran Inj*) 4 mg IV Q6H PRN PRN Reason: NAUSEA Last Admin: 03/05/17 13:39 Dose: 4 mg Potassium Chloride (Klor Con Er Tab*) 20 meq PO QPM [facility] Last Admin: 03/07/17 17:20 Dose: 20 meq Potassium Chloride (Klor Con Er Tab*) 40 meq PO DAILY [facility] Last Admin: 03/08/17 09:49 Dose: 40 meq Rivaroxaban (Xarelto (*)) 20 mg PO DAILY [facility] Last Admin: 03/08/17 09:51 Dose: 20 mg Ursodiol (Sophie 250(Nf)) 250 mg PO BID [facility] Last Admin: 03/08/17 08:32 Dose: 250 mg EMU Diagnostics - Diagnostic Most Recent Vital Signs: Vital Signs: Temp Pulse Resp BP Pulse Ox 97.5 F 70 20 111/60 95 03/07/17 20:45 03/07/17 20:45 03/08/17 08:00 03/07/17 20:45 03/06/17 19:59 Lab Results: Laboratory Tests 03/04/17 03/04/17 03/04/17 11:30 13:51 14:22 WBC RBC Hgb Hct MCV MCH MCHC RDW Plt Count MPV Neut % (Auto) Lymph % (Auto) [place] % (Auto) Eos % (Auto) Baso % (Auto) Absolute Neuts (auto) Absolute Lymphs (auto) Absolute Monos (auto) Absolute Eos (auto) Absolute Basos (auto) Absolute Nucleated RBC Nucleated RBC % Sodium Potassium Chloride Carbon Dioxide Anion Gap BUN Creatinine Est GFR ( Amer) Est GFR (Non-Af Amer) BUN/Creatinine Ratio Glucose POC Glucose (mg/dL) 150 H 53 L 59 L Hemoglobin A1c Calcium Magnesium Total Bilirubin AST ALT Alkaline Phosphatase Total Protein Albumin Globulin Albumin/Globulin Ratio Amylase Lipase Beta HCG, Quant Urine Color Urine Appearance Urine pH Ur Specific [place] Urine Protein Urine Ketones Urine Blood Urine Nitrate Urine Bilirubin Urine Urobilinogen Ur Leukocyte Esterase Urine Glucose 03/04/17 03/04/17 03/04/17 14:40 15:08 15:19 WBC RBC Hgb Hct MCV MCH MCHC RDW Plt Count MPV Neut % (Auto) Lymph % (Auto) [place] % (Auto) Eos % (Auto) Baso % (Auto) Absolute Neuts (auto) Absolute Lymphs (auto) Absolute Monos (auto) Absolute Eos (auto) Absolute Basos (auto) Absolute Nucleated RBC Nucleated RBC % Sodium 137 Potassium 3.2 L Chloride 98 L Carbon Dioxide 33 H Anion Gap 6 BUN 17 Creatinine 1.02 H Est GFR ( Amer) 74.4 Est GFR (Non-Af Amer) 57.8 BUN/Creatinine Ratio 16.7 Glucose 40 L POC Glucose (mg/dL) 61 L 64 L Hemoglobin A1c Calcium 9.2 Magnesium 1.3 L Total Bilirubin AST ALT Alkaline Phosphatase Total Protein Albumin Globulin Albumin/Globulin Ratio Amylase Lipase Beta HCG, Quant Urine Color Urine Appearance Urine pH Ur Specific [place] Urine Protein Urine Ketones Urine Blood Urine Nitrate Urine Bilirubin Urine Urobilinogen Ur Leukocyte Esterase Urine Glucose 03/04/17 03/04/17 03/04/17 15:49 16:02 17:40 WBC RBC Hgb Hct MCV MCH MCHC RDW Plt Count MPV Neut % (Auto) Lymph % (Auto) [place] % (Auto) Eos % (Auto) Baso % (Auto) Absolute Neuts (auto) Absolute Lymphs (auto) Absolute Monos (auto) Absolute Eos (auto) Absolute Basos (auto) Absolute Nucleated RBC Nucleated RBC % Sodium Potassium Chloride Carbon Dioxide Anion Gap BUN Creatinine Est GFR ( Amer) Est GFR (Non-Af Amer) BUN/Creatinine Ratio Glucose POC Glucose (mg/dL) 54 L 245 H 122 H Hemoglobin A1c Calcium Magnesium Total Bilirubin AST ALT Alkaline Phosphatase Total Protein Albumin Globulin Albumin/Globulin Ratio Amylase Lipase Beta HCG, Quant Urine Color Urine Appearance Urine pH Ur Specific [place] Urine Protein Urine Ketones Urine Blood Urine Nitrate Urine Bilirubin Urine Urobilinogen Ur Leukocyte Esterase Urine Glucose 03/04/17 03/04/17 03/05/17 18:20 19:54 06:17 WBC RBC Hgb Hct MCV MCH MCHC RDW Plt Count MPV Neut % (Auto) Lymph % (Auto) [place] % (Auto) Eos % (Auto) Baso % (Auto) Absolute Neuts (auto) Absolute Lymphs (auto) Absolute Monos (auto) Absolute Eos (auto) Absolute Basos (auto) Absolute Nucleated RBC Nucleated RBC % Sodium Potassium Chloride Carbon Dioxide Anion Gap BUN Creatinine Est GFR ( Amer) Est GFR (Non-Af Amer) BUN/Creatinine Ratio Glucose POC Glucose (mg/dL) 132 H 127 H 158 H Hemoglobin A1c Calcium Magnesium Total Bilirubin AST ALT Alkaline Phosphatase Total Protein Albumin Globulin Albumin/Globulin Ratio Amylase Lipase Beta HCG, Quant Urine Color Urine Appearance Urine pH Ur Specific [place] Urine Protein Urine Ketones Urine Blood Urine Nitrate Urine Bilirubin Urine Urobilinogen Ur Leukocyte Esterase Urine Glucose 03/05/17 03/05/17 03/05/17 07:42 10:15 11:38 WBC RBC Hgb Hct MCV MCH MCHC RDW Plt Count MPV Neut % (Auto) Lymph % (Auto) [place] % (Auto) Eos % (Auto) Baso % (Auto) Absolute Neuts (auto) Absolute Lymphs (auto) Absolute Monos (auto) Absolute Eos (auto) Absolute Basos (auto) Absolute Nucleated RBC Nucleated RBC % Sodium Potassium Chloride Carbon Dioxide Anion Gap BUN Creatinine Est GFR ( Amer) Est GFR (Non-Af Amer) BUN/Creatinine Ratio Glucose POC Glucose (mg/dL) 175 H Hemoglobin A1c Calcium Magnesium TNP 1.9 Total Bilirubin AST ALT Alkaline Phosphatase Total Protein Albumin Globulin Albumin/Globulin Ratio Amylase Lipase Beta HCG, Quant < 0.60 Urine Color Urine Appearance Urine pH Ur Specific [place] Urine Protein Urine Ketones Urine Blood Urine Nitrate Urine Bilirubin Urine Urobilinogen Ur Leukocyte Esterase Urine Glucose 03/05/17 03/05/17 03/05/17 11:44 17:00 17:30 WBC 13.7 H RBC 4.94 Hgb 15.2 Hct 44 MCV 90 MCH 31 MCHC 34 RDW 15 Plt Count 174 MPV 10 Neut % (Auto) 72.7 Lymph % (Auto) 19.1 L [place] % (Auto) 7.4 Eos % (Auto) 0.5 Baso % (Auto) 0.3 Absolute Neuts (auto) 10.0 H Absolute Lymphs (auto) 2.6 Absolute Monos (auto) 1.0 H Absolute Eos (auto) 0.1 Absolute Basos (auto) 0 Absolute Nucleated RBC 0.01 Nucleated RBC % 0 Sodium Potassium Chloride Carbon Dioxide Anion Gap BUN Creatinine Est GFR ( Amer) Est GFR (Non-Af Amer) BUN/Creatinine Ratio Glucose POC Glucose (mg/dL) 240 H 130 H Hemoglobin A1c Calcium Magnesium Total Bilirubin AST ALT Alkaline Phosphatase Total Protein Albumin Globulin Albumin/Globulin Ratio Amylase Lipase Beta HCG, Quant Urine Color Urine Appearance Urine pH Ur Specific [place] Urine Protein Urine Ketones Urine Blood Urine Nitrate Urine Bilirubin Urine Urobilinogen Ur Leukocyte Esterase Urine Glucose 03/05/17 03/05/17 03/05/17 17:30 21:35 21:40 WBC 13.5 H RBC 4.86 Hgb 15.0 Hct 44 MCV 90 MCH 31 MCHC 34 RDW 15 Plt Count 165 MPV 10 Neut % (Auto) 74.7 Lymph % (Auto) 17.2 L [place] % (Auto) 7.6 Eos % (Auto) 0.1 Baso % (Auto) 0.4 Absolute Neuts (auto) 10.1 H Absolute Lymphs (auto) 2.3 Absolute Monos (auto) 1.0 H Absolute Eos (auto) 0 Absolute Basos (auto) 0.1 Absolute Nucleated RBC 0 Nucleated RBC % 0 Sodium Potassium Chloride Carbon Dioxide Anion Gap BUN Creatinine Est GFR ( Amer) Est GFR (Non-Af Amer) BUN/Creatinine Ratio Glucose POC Glucose (mg/dL) 80 Hemoglobin A1c 14.0 H Calcium Magnesium Total Bilirubin AST ALT Alkaline Phosphatase Total Protein Albumin Globulin Albumin/Globulin Ratio Amylase Lipase Beta HCG, Quant Urine Color Urine Appearance Urine pH Ur Specific [place] Urine Protein Urine Ketones Urine Blood Urine Nitrate Urine Bilirubin Urine Urobilinogen Ur Leukocyte Esterase Urine Glucose 03/05/17 03/06/17 03/06/17 21:40 01:12 04:24 WBC RBC Hgb Hct MCV MCH MCHC RDW Plt Count MPV Neut % (Auto) Lymph % (Auto) [place] % (Auto) Eos % (Auto) Baso % (Auto) Absolute Neuts (auto) Absolute Lymphs (auto) Absolute Monos (auto) Absolute Eos (auto) Absolute Basos (auto) Absolute Nucleated RBC Nucleated RBC % Sodium 137 Potassium 3.0 L Chloride 90 L Carbon Dioxide 38 H Anion Gap 9 BUN 31 H Creatinine 1.44 H Est GFR ( Amer) 50.0 Est GFR (Non-Af Amer) 38.9 BUN/Creatinine Ratio 21.5 H Glucose 98 POC Glucose (mg/dL) 75 Hemoglobin A1c Calcium 10.0 Magnesium Total Bilirubin 0.50 AST 22 ALT 14 Alkaline Phosphatase 56 Total Protein 6.8 Albumin 3.6 Globulin 3.2 Albumin/Globulin Ratio 1.1 Amylase 29 Lipase 16 Beta HCG, Quant Urine Color Straw Urine Appearance Clear Urine pH 5.0 Ur Specific [place] 1.010 Urine Protein Negative Urine Ketones Negative Urine Blood Negative Urine Nitrate Negative Urine Bilirubin Negative Urine Urobilinogen Negative Ur Leukocyte Esterase Negative Urine Glucose 2+(150 mg/dl) H 03/06/17 03/06/17 03/06/17 07:36 09:46 09:46 WBC 13.4 H RBC 4.62 Hgb 14.0 Hct 42 MCV 91 MCH 30 MCHC 33 RDW 14 Plt Count 168 MPV 11 H Neut % (Auto) 63.2 Lymph % (Auto) 27.4 [place] % (Auto) 8.9 Eos % (Auto) 0.3 Baso % (Auto) 0.2 Absolute Neuts (auto) 8.5 H Absolute Lymphs (auto) 3.7 Absolute Monos (auto) 1.2 H Absolute Eos (auto) 0 Absolute Basos (auto) 0 Absolute Nucleated RBC 0.01 Nucleated RBC % 0 Sodium 137 Potassium 3.4 L Chloride 93 L Carbon Dioxide 34 H Anion Gap 10 BUN 31 H Creatinine 1.32 H Est GFR ( Amer) 55.2 Est GFR (Non-Af Amer) 43.0 BUN/Creatinine Ratio 23.5 H Glucose 145 H POC Glucose (mg/dL) 90 Hemoglobin A1c Calcium 8.8 Magnesium Total Bilirubin 0.50 AST 20 ALT 13 Alkaline Phosphatase 54 Total Protein 5.9 L Albumin 2.9 L Globulin 3.0 Albumin/Globulin Ratio 1.0 Amylase Lipase Beta HCG, Quant Urine Color Urine Appearance Urine pH Ur Specific [place] Urine Protein Urine Ketones Urine Blood Urine Nitrate Urine Bilirubin Urine Urobilinogen Ur Leukocyte Esterase Urine Glucose 03/06/17 03/06/17 03/06/17 12:12 16:37 21:28 WBC RBC Hgb Hct MCV MCH MCHC RDW Plt Count MPV Neut % (Auto) Lymph % (Auto) [place] % (Auto) Eos % (Auto) Baso % (Auto) Absolute Neuts (auto) Absolute Lymphs (auto) Absolute Monos (auto) Absolute Eos (auto) Absolute Basos (auto) Absolute Nucleated RBC Nucleated RBC % Sodium Potassium Chloride Carbon Dioxide Anion Gap BUN Creatinine Est GFR ( Amer) Est GFR (Non-Af Amer) BUN/Creatinine Ratio Glucose POC Glucose (mg/dL) 81 83 175 H Hemoglobin A1c Calcium Magnesium Total Bilirubin AST ALT Alkaline Phosphatase Total Protein Albumin Globulin Albumin/Globulin Ratio Amylase Lipase Beta HCG, Quant Urine Color Urine Appearance Urine pH Ur Specific [place] Urine Protein Urine Ketones Urine Blood Urine Nitrate Urine Bilirubin Urine Urobilinogen Ur Leukocyte Esterase Urine Glucose 03/07/17 03/07/17 03/07/17 08:47 11:53 11:53 WBC 13.1 H RBC 5.25 Hgb 16.2 H Hct 48 H MCV 91 MCH 31 MCHC 34 RDW 15 Plt Count 204 MPV 10 Neut % (Auto) 59.2 Lymph % (Auto) 30.0 [place] % (Auto) 9.4 H Eos % (Auto) 1.0 Baso % (Auto) 0.4 Absolute Neuts (auto) 7.8 H Absolute Lymphs (auto) 3.9 Absolute Monos (auto) 1.2 H Absolute Eos (auto) 0.1 Absolute Basos (auto) 0 Absolute Nucleated RBC 0.01 Nucleated RBC % 0.1 Sodium 134 Potassium 3.9 Chloride 97 L Carbon Dioxide 29 Anion Gap 8 BUN 21 Creatinine 1.02 H Est GFR ( Amer) 74.4 Est GFR (Non-Af Amer) 57.8 BUN/Creatinine Ratio 20.6 H Glucose 126 H POC Glucose (mg/dL) 85 Hemoglobin A1c Calcium 9.7 Magnesium Total Bilirubin AST ALT Alkaline Phosphatase Total Protein Albumin Globulin Albumin/Globulin Ratio Amylase Lipase Beta HCG, Quant Urine Color Urine Appearance Urine pH Ur Specific [place] Urine Protein Urine Ketones Urine Blood Urine Nitrate Urine Bilirubin Urine Urobilinogen Ur Leukocyte Esterase Urine Glucose 03/07/17 03/07/17 03/07/17 12:00 17:07 21:28 WBC RBC Hgb Hct MCV MCH MCHC RDW Plt Count MPV Neut % (Auto) Lymph % (Auto) [place] % (Auto) Eos % (Auto) Baso % (Auto) Absolute Neuts (auto) Absolute Lymphs (auto) Absolute Monos (auto) Absolute Eos (auto) Absolute Basos (auto) Absolute Nucleated RBC Nucleated RBC % Sodium Potassium Chloride Carbon Dioxide Anion Gap BUN Creatinine Est GFR ( Amer) Est GFR (Non-Af Amer) BUN/Creatinine Ratio Glucose POC Glucose (mg/dL) 122 H 238 H 244 H Hemoglobin A1c Calcium Magnesium Total Bilirubin AST ALT Alkaline Phosphatase Total Protein Albumin Globulin Albumin/Globulin Ratio Amylase Lipase Beta HCG, Quant Urine Color Urine Appearance Urine pH Ur Specific [place] Urine Protein Urine Ketones Urine Blood Urine Nitrate Urine Bilirubin Urine Urobilinogen Ur Leukocyte Esterase Urine Glucose 03/08/17 07:43 WBC RBC Hgb Hct MCV MCH MCHC RDW Plt Count MPV Neut % (Auto) Lymph % (Auto) [place] % (Auto) Eos % (Auto) Baso % (Auto) Absolute Neuts (auto) Absolute Lymphs (auto) Absolute Monos (auto) Absolute Eos (auto) Absolute Basos (auto) Absolute Nucleated RBC Nucleated RBC % Sodium Potassium Chloride Carbon Dioxide Anion Gap BUN Creatinine Est GFR ( Amer) Est GFR (Non-Af Amer) BUN/Creatinine Ratio Glucose POC Glucose (mg/dL) 93 Hemoglobin A1c Calcium Magnesium Total Bilirubin AST ALT Alkaline Phosphatase Total Protein Albumin Globulin Albumin/Globulin Ratio Amylase Lipase Beta HCG, Quant Urine Color Urine Appearance Urine pH Ur Specific [place] Urine Protein Urine Ketones Urine Blood Urine Nitrate Urine Bilirubin Urine Urobilinogen Ur Leukocyte Esterase Urine Glucose Interim video-EEG long-term monitoring report: #01 03/03: Background shows PDR 9, occasional diffuse moderate to high voltage slowing during less alert state/drowsiness. No discharges, no seizures, no patient events #02 03/04: Background as above except for some more frequent slowing in the same distribution as previously described. No clear epileptiform abnormalities. No seizures or patient events. #03 /: Patient mostly asleep the majority of the day. During waking, there was a greater degree of non-specific slowing than on the first day but no discharges. No seizures or patient events. #04 /: Again there is a greater degree of slowing than the first day as the patient spends much of waking time in an apparent drowsy state. There are some periods of better background which appear similar to the first day's recording. Still much of the time spent sleeping. No seizures or patient events. No discharges. #05 /: Background similar to above with greater degree of polymorphic slowing than noted on admission. Still slept a lot but was up in the chair for several hours with an encephalopathic background often evident. No seizures or events. NO discharges. EMU Exam - Exam Physical/Neurological Exam: Physical Exam: General: Asleep, wakes to voice Eyes: normal conjunctiva, pupils were equal and reactive. MSK: LE edema resolved. Derm: Small scabbed lesion noted over right tibia, present on admission Neurological Exam: Mental Status: Awake and alert. Oriented to person, place, and time. Fluent but simple speech. Comprehension intact. Affect appropriate. Pupils 3/3 to 2/2mm. Versions full, no nystagmus, Face symmetric. Tongue ML, palate elevates symmetrically. All limbs antigravity, full strength in UEs. Sensation intact to LT FTN without ataxia. Pt not asked to ambulate. EMU Progress Note Assessment/P - Assessment/Plan Assessment: 46 year old left-handed woman with multiple medical problems include poorly controlled diabetes with associated complications, tachycardia s/p pacemaker and episodes of possible seizures since 2009 which increased in frequency in 2015. These events are characterized by a sense of her breath cutting out, inability to speak and sometimes preceded by nausea. They seem improved on levetiracetam 1500mg BID but not resolved and her EEG was not convincing for epileptiform abnormalities. LTM undertaken to characterize events. No typical events recorded yet. Leg cramps have not been an issue since magnesium replaced. N/V resolved and she had an episode of diarrhea, continues to slowly improve in terms of level of alertness during the day. Gisell confirmed that at home pt sometimes has episodes of N/V which "lay her out" and she has to rest afterward. Suspect viral gastroenteritis vs diabetic gastroparesis. BGs have been in the normal to high range, but still lower than what she runs at home. Similar for BPs. Asked pt to try and stay awake for the rest of the day. Plan: * Continue [facility] video EEG monitoring to capture typical episodes * Seizure precautions * Ativan 1mg IV for seizure >3 minutes * levetiracetam d/c'd after PM dose on 03/06. * Tylenol for pain. * Zofran IV 4mg q6hr prn nausea * continue other home meds with changes/holds per hospital medicine * back on consistent carb diet * offered coloring, movies, watching tv, drawing, etc to try and keep pt awake. Up to chair ad arnulfo * Will consider trying sleep deprivation tonight depending on how pt does with staying awake today
[2017-03-08] MEDS: Omeprazole CAP* 20 MG PO SCH (17:49)
--- NOTE | 2017-03-08 17:56 | PN ---
Subjective Date of Service: 03/08/17 Interval History: Pt feels much better, eating dinner, denies abd pain. still diarrhea -twice today Objective Active Medications: Acetaminophen (Tylenol Tab*) 650 mg PO Q6H PRN PRN Reason: PAIN Last Admin: 03/08/17 06:15 Dose: 650 mg Albuterol (Ventolin 2.5 Mg/3 Ml Neb.Fabby*) 2.5 mg INH Q2H PRN PRN Reason: SOB/WHEEZING Aspirin (Aspirin Low Dose Tab*) 81 mg PO DAILY [facility] Last Admin: 03/08/17 09:52 Dose: 81 mg Atorvastatin Calcium (Lipitor*) 10 mg PO BEDTIME [facility] Last Admin: 03/07/17 21:20 Dose: 10 mg Cyanocobalamin (Vitamin B12 Tab*) 1,000 mcg PO QAM [facility] Last Admin: 03/08/17 08:29 Dose: 1,000 mcg Dextrose (D50w Syringe 50 Ml*) 12.5 gm IV PUSH DAILY PRN PRN Reason: BG <70 refractory to juice Dextrose (D50w Syringe 50 Ml*) 12.5 gm IV PUSH .FOR FS < 60 - SS PRN PRN Reason: FS < 60 Diphenhydramine HCl (Benadryl Po*) 25 mg PO Q6H PRN PRN Reason: ITCHING Gabapentin (Neurontin Cap(*)) 100 mg PO TID [facility] Last Admin: 03/08/17 14:35 Dose: 100 mg Sodium Chloride (Ns 0.9% 1000 Ml*) 1,000 mls @ 75 mls/hr IV PER RATE [facility] Insulin Glargine (Lantus(*)) 30 units SUBCUT DAILY [facility] Last Admin: 03/08/17 08:33 Dose: 30 units Insulin Human Lispro (Humalog*) 0 units SUBCUT AC [facility] PRN Reason: Protocol Last Admin: 03/08/17 17:50 Dose: 6 units Levothyroxine Sodium (Synthroid Tab*) 250 mcg PO DAILY@0600 [facility] Last Admin: 03/08/17 06:09 Dose: 250 mcg Linaclotide (Linzess (Nf)) 290 mcg PO DAILY [facility] Last Admin: 03/08/17 08:31 Dose: 290 mcg Lorazepam (Ativan Inj*) 1 mg IV Q8H PRN PRN Reason: Seizure > 3 minutes Lubiprostone (Amitiza (Nf)) 24 mcg PO BID [facility] Last Admin: 03/08/17 08:32 Dose: 24 mcg Magnesium Oxide (Magox 400 Tab*) 400 mg PO TID [facility] Last Admin: 03/08/17 14:35 Dose: 400 mg Metoclopramide HCl (Reglan Iv*) 10 mg IV Q6H PRN PRN Reason: NAUSEA/VOMITING Last Admin: 03/06/17 08:25 Dose: 10 mg Metoprolol Tartrate (Lopressor Tab*) 25 mg PO BID [facility] Last Admin: 03/08/17 09:52 Dose: 25 mg Mometasone Furoate/Formoterol Fumar (Dulera 100/5 Mdi*) 2 puff INH BID PRN PRN Reason: SOB/WHEEZING Omeprazole (Prilosec Cap*) 40 mg PO QPM [facility] Last Admin: 03/08/17 17:49 Dose: 40 mg Ondansetron HCl (Zofran Inj*) 4 mg IV Q6H PRN PRN Reason: NAUSEA Last Admin: 03/05/17 13:39 Dose: 4 mg Potassium Chloride (Klor Con Er Tab*) 20 meq PO QPM [facility] Last Admin: 03/08/17 17:47 Dose: 20 meq Potassium Chloride (Klor Con Er Tab*) 40 meq PO DAILY [facility] Last Admin: 03/08/17 09:49 Dose: 40 meq Rivaroxaban (Xarelto (*)) 20 mg PO DAILY [facility] Last Admin: 03/08/17 09:51 Dose: 20 mg Ursodiol (Sophie 250(Nf)) 250 mg PO BID [facility] Last Admin: 03/08/17 08:32 Dose: 250 mg Vital Signs 03/07/17 03/07/17 03/08/17 20:25 20:45 08:00 Temperature 97.5 F Pulse Rate 70 Respiratory 20 22 20 Rate Blood Pressure 111/60 (mmHg) Oxygen Devices in Use Now: None Appearance: 46 yo f in nAD, AAOx3 Eyes: No Scleral Icterus, PERRLA Ears/Nose/Mouth/Throat: NL Teeth, Lips, Gums, Mucous Membranes Moist Neck: NL Appearance and Movements; NL JVP, Trachea Midline Respiratory: Symmetrical Chest Expansion and Respiratory Effort, Clear to Auscultation Cardiovascular: NL Sounds; No Murmurs; No JVD, RRR Abdominal: NL Sounds; No Tenderness; No Distention Lymphatic: No Cervical Adenopathy Extremities: No Edema, No Clubbing, Cyanosis Skin: No Nodules or Sclerosis, - - scarred excoriations on b/l shoulders Neurological: Alert and Oriented x 3, NL Muscle Strength and Tone Result Diagrams: 03/07/17 11:53 03/07/17 11:53 Microbiology and Other Data: Microbiology 03/06/17 01:12 Urine Culture - Final Urine Assess/Plan/Problems-Billing Assessment: 46 year old left-handed woman with multiple medical problems include poorly controlled diabetes with associated complications, tachycardia s/p pacemaker and episodes of possible seizures since 2009 which increased in frequency in 2015. Medical consult fo N/V/D - Patient Problems (1) DM2 (diabetes mellitus, type 2) Comment: Cont Lantus at 30 u today (2) Nausea and vomiting Comment: Nausea resolved. continues to have diarrhea. suspect gastroneteritis. no abd pain. Stop IVF, good PO intake (3) HTN (hypertension) Comment: BP low normal due to low PO intake will cont lopressor, holding imdur (4) BRENT (acute kidney injury) Comment: due to dehydration Resolving Holding diuretics (5) Hypothyroidism Comment: cont home Synthroid dose (6) Atrial fibrillation Comment: currently in NSR, cont Xarelto and lopressor (7) Seizures Comment: currently monitored by Dr. Weeks (8) DVT prophylaxis Comment: cont Xarelto Status and Disposition: Thank you for consult, will follow
[2017-03-08] MEDS: Atorvastatin* 10 MG TAB PO SCH (20:44)
[2017-03-09] MEDS: Levothyroxine TAB* 125 MCG TAB PO SCH (07:49)
[2017-03-09] MEDS ORDERED: Loperamide CAP* 2 MG PO PRN (07:52)
[2017-03-09] MEDS: Insulin LISPRO* 1 UNITS UNIT SUBCUT SCH ×3 (08:12→16:56)
[2017-03-09 09:16] LABS: Hematocrit 44 % (35-47); Hemoglobin 14.7 g/dl (12.0-16.0); Mean Corpuscular HGB Conc 34 g/dl (31-36); Mean Corpuscular Hemoglobin 31 pg (27-31); Mean Corpuscular Volume 92 fL (80-97); Mean Platelet Volume 11 um3 (7.4-10.4); Red Blood Count 4.75 10^6/ul (4.0-5.4); Red Cell Distribution Width 14 % (10.5-15); White Blood Count 8.8 10^3/ul (3.5-10.8)
[2017-03-09 09:25] LABS: BUN/Creatinine Ratio 22.9 (8-20); EGFR African American 114.9 (>60); EGFR Non-African American 89.3 (>60); Potassium 3.6 mmol/L (3.5-5.0)
[2017-03-09] MEDS: Aspirin Low Dose CHEW TAB* 81 MG PO SCH (09:27)
[2017-03-09] MEDS: Cyanocobalamin TAB* 500 MCG PO SCH (09:28)
[2017-03-09] MEDS: LINACLOTIDE 145 MCG PO SCH (09:29)
[2017-03-09] MEDS: LUBIPROSTONE 24 MCG PO SCH ×2 (09:31→20:48)
[2017-03-09] MEDS: Metoprolol Tartrate TAB* 25 MG PO SCH ×2 (09:32→20:48)
[2017-03-09] MEDS: Magnesium Oxide TAB* 400 MG PO SCH ×3 (09:32→20:49)
[2017-03-09] MEDS: Rivaroxaban TAB(*) 20 MG TAB PO SCH (09:33)
[2017-03-09] MEDS: URSODIOL 250 MG PO SCH ×2 (09:33→20:48)
[2017-03-09] MEDS: Potassium Chlor TAB* 20 MEQ TAB.ER PO SCH ×2 (09:33→18:29)
[2017-03-09] MEDS: Gabapentin CAP(*) 100 MG PO SCH ×3 (09:37→20:48)
[2017-03-09] MEDS: Insulin GLARGINE(*) 1 UNITS UNIT SUBCUT SCH (09:38)
--- NOTE | 2017-03-09 17:29 | PN ---
Epilepsy Service Progress Note - Subjective DOS 03/09/17 Late entry: patient seen this am around 10:30. She was much more herself, up in the chair, talkative and told me how Melissa and Gisell visited last night. She had questions about why she has been so sick in the hospital, how much insulin she should take when she goes home, asked for diabetic cookbook, etc. No typical events yet. - Medications Active Medications: Acetaminophen (Tylenol Tab*) 650 mg PO Q6H PRN PRN Reason: PAIN Last Admin: 03/08/17 06:15 Dose: 650 mg Albuterol (Ventolin 2.5 Mg/3 Ml Neb.Fabby*) 2.5 mg INH Q2H PRN PRN Reason: SOB/WHEEZING Aspirin (Aspirin Low Dose Tab*) 81 mg PO DAILY [facility] Last Admin: 03/09/17 09:27 Dose: 81 mg Atorvastatin Calcium (Lipitor*) 10 mg PO BEDTIME [facility] Last Admin: 03/08/17 20:44 Dose: 10 mg Cyanocobalamin (Vitamin B12 Tab*) 1,000 mcg PO QAM [facility] Last Admin: 03/09/17 09:28 Dose: 1,000 mcg Dextrose (D50w Syringe 50 Ml*) 12.5 gm IV PUSH DAILY PRN PRN Reason: BG <70 refractory to juice Dextrose (D50w Syringe 50 Ml*) 12.5 gm IV PUSH .FOR FS < 60 - SS PRN PRN Reason: FS < 60 Diphenhydramine HCl (Benadryl Po*) 25 mg PO Q6H PRN PRN Reason: ITCHING Gabapentin (Neurontin Cap(*)) 100 mg PO TID [facility] Last Admin: 03/09/17 14:03 Dose: 100 mg Insulin Glargine (Lantus(*)) 30 units SUBCUT DAILY [facility] Last Admin: 03/09/17 09:38 Dose: 30 units Insulin Human Lispro (Humalog*) 0 units SUBCUT AC [facility] PRN Reason: Protocol Last Admin: 03/09/17 16:56 Dose: 2 units Levothyroxine Sodium (Synthroid Tab*) 250 mcg PO DAILY@0600 [facility] Last Admin: 03/09/17 07:49 Dose: 250 mcg Loperamide HCl (Imodium Cap*) 2 mg PO ONCE PRN PRN Reason: LOOSE STOOLS Lorazepam (Ativan Inj*) 1 mg IV Q8H PRN PRN Reason: Seizure > 3 minutes Lubiprostone (Amitiza (Nf)) 24 mcg PO BID [facility] Last Admin: 03/09/17 09:31 Dose: 24 mcg Magnesium Oxide (Magox 400 Tab*) 400 mg PO TID [facility] Last Admin: 03/09/17 14:03 Dose: 400 mg Metoclopramide HCl (Reglan Iv*) 10 mg IV Q6H PRN PRN Reason: NAUSEA/VOMITING Last Admin: 03/06/17 08:25 Dose: 10 mg Metoprolol Tartrate (Lopressor Tab*) 25 mg PO BID [facility] Last Admin: 03/09/17 09:32 Dose: 25 mg Mometasone Furoate/Formoterol Fumar (Dulera 100/5 Mdi*) 2 puff INH BID PRN PRN Reason: SOB/WHEEZING Omeprazole (Prilosec Cap*) 40 mg PO QPM [facility] Last Admin: 03/08/17 17:49 Dose: 40 mg Ondansetron HCl (Zofran Inj*) 4 mg IV Q6H PRN PRN Reason: NAUSEA Last Admin: 03/05/17 13:39 Dose: 4 mg Potassium Chloride (Klor Con Er Tab*) 20 meq PO QPM [facility] Last Admin: 03/08/17 17:47 Dose: 20 meq Potassium Chloride (Klor Con Er Tab*) 40 meq PO DAILY [facility] Last Admin: 03/09/17 09:33 Dose: 40 meq Rivaroxaban (Xarelto (*)) 20 mg PO DAILY [facility] Last Admin: 03/09/17 09:33 Dose: 20 mg Ursodiol (Sophie 250(Nf)) 250 mg PO BID [facility] Last Admin: 03/09/17 09:33 Dose: 250 mg EMU Diagnostics - Diagnostic Most Recent Vital Signs: Vital Signs: Temp Pulse Resp BP Pulse Ox 97.9 F 70 18 108/56 97 03/09/17 07:42 03/09/17 07:42 03/09/17 08:00 03/09/17 07:42 03/09/17 07:42 Lab Results: Laboratory Tests 03/04/17 03/04/17 03/04/17 11:30 13:51 14:22 WBC RBC Hgb Hct MCV MCH MCHC RDW Plt Count MPV Neut % (Auto) Lymph % (Auto) [place] % (Auto) Eos % (Auto) Baso % (Auto) Absolute Neuts (auto) Absolute Lymphs (auto) Absolute Monos (auto) Absolute Eos (auto) Absolute Basos (auto) Absolute Nucleated RBC Nucleated RBC % Sodium Potassium Chloride Carbon Dioxide Anion Gap BUN Creatinine Est GFR ( Amer) Est GFR (Non-Af Amer) BUN/Creatinine Ratio Glucose POC Glucose (mg/dL) 150 H 53 L 59 L Hemoglobin A1c Calcium Magnesium Total Bilirubin AST ALT Alkaline Phosphatase Total Protein Albumin Globulin Albumin/Globulin Ratio Amylase Lipase Beta HCG, Quant Urine Color Urine Appearance Urine pH Ur Specific [place] Urine Protein Urine Ketones Urine Blood Urine Nitrate Urine Bilirubin Urine Urobilinogen Ur Leukocyte Esterase Urine Glucose 03/04/17 03/04/17 03/04/17 14:40 15:08 15:19 WBC RBC Hgb Hct MCV MCH MCHC RDW Plt Count MPV Neut % (Auto) Lymph % (Auto) [place] % (Auto) Eos % (Auto) Baso % (Auto) Absolute Neuts (auto) Absolute Lymphs (auto) Absolute Monos (auto) Absolute Eos (auto) Absolute Basos (auto) Absolute Nucleated RBC Nucleated RBC % Sodium 137 Potassium 3.2 L Chloride 98 L Carbon Dioxide 33 H Anion Gap 6 BUN 17 Creatinine 1.02 H Est GFR ( Amer) 74.4 Est GFR (Non-Af Amer) 57.8 BUN/Creatinine Ratio 16.7 Glucose 40 L POC Glucose (mg/dL) 61 L 64 L Hemoglobin A1c Calcium 9.2 Magnesium 1.3 L Total Bilirubin AST ALT Alkaline Phosphatase Total Protein Albumin Globulin Albumin/Globulin Ratio Amylase Lipase Beta HCG, Quant Urine Color Urine Appearance Urine pH Ur Specific [place] Urine Protein Urine Ketones Urine Blood Urine Nitrate Urine Bilirubin Urine Urobilinogen Ur Leukocyte Esterase Urine Glucose 03/04/17 03/04/17 03/04/17 15:49 16:02 17:40 WBC RBC Hgb Hct MCV MCH MCHC RDW Plt Count MPV Neut % (Auto) Lymph % (Auto) [place] % (Auto) Eos % (Auto) Baso % (Auto) Absolute Neuts (auto) Absolute Lymphs (auto) Absolute Monos (auto) Absolute Eos (auto) Absolute Basos (auto) Absolute Nucleated RBC Nucleated RBC % Sodium Potassium Chloride Carbon Dioxide Anion Gap BUN Creatinine Est GFR ( Amer) Est GFR (Non-Af Amer) BUN/Creatinine Ratio Glucose POC Glucose (mg/dL) 54 L 245 H 122 H Hemoglobin A1c Calcium Magnesium Total Bilirubin AST ALT Alkaline Phosphatase Total Protein Albumin Globulin Albumin/Globulin Ratio Amylase Lipase Beta HCG, Quant Urine Color Urine Appearance Urine pH Ur Specific [place] Urine Protein Urine Ketones Urine Blood Urine Nitrate Urine Bilirubin Urine Urobilinogen Ur Leukocyte Esterase Urine Glucose 03/04/17 03/04/17 03/05/17 18:20 19:54 06:17 WBC RBC Hgb Hct MCV MCH MCHC RDW Plt Count MPV Neut % (Auto) Lymph % (Auto) [place] % (Auto) Eos % (Auto) Baso % (Auto) Absolute Neuts (auto) Absolute Lymphs (auto) Absolute Monos (auto) Absolute Eos (auto) Absolute Basos (auto) Absolute Nucleated RBC Nucleated RBC % Sodium Potassium Chloride Carbon Dioxide Anion Gap BUN Creatinine Est GFR ( Amer) Est GFR (Non-Af Amer) BUN/Creatinine Ratio Glucose POC Glucose (mg/dL) 132 H 127 H 158 H Hemoglobin A1c Calcium Magnesium Total Bilirubin AST ALT Alkaline Phosphatase Total Protein Albumin Globulin Albumin/Globulin Ratio Amylase Lipase Beta HCG, Quant Urine Color Urine Appearance Urine pH Ur Specific [place] Urine Protein Urine Ketones Urine Blood Urine Nitrate Urine Bilirubin Urine Urobilinogen Ur Leukocyte Esterase Urine Glucose 03/05/17 03/05/17 03/05/17 07:42 10:15 11:38 WBC RBC Hgb Hct MCV MCH MCHC RDW Plt Count MPV Neut % (Auto) Lymph % (Auto) [place] % (Auto) Eos % (Auto) Baso % (Auto) Absolute Neuts (auto) Absolute Lymphs (auto) Absolute Monos (auto) Absolute Eos (auto) Absolute Basos (auto) Absolute Nucleated RBC Nucleated RBC % Sodium Potassium Chloride Carbon Dioxide Anion Gap BUN Creatinine Est GFR ( Amer) Est GFR (Non-Af Amer) BUN/Creatinine Ratio Glucose POC Glucose (mg/dL) 175 H Hemoglobin A1c Calcium Magnesium TNP 1.9 Total Bilirubin AST ALT Alkaline Phosphatase Total Protein Albumin Globulin Albumin/Globulin Ratio Amylase Lipase Beta HCG, Quant < 0.60 Urine Color Urine Appearance Urine pH Ur Specific [place] Urine Protein Urine Ketones Urine Blood Urine Nitrate Urine Bilirubin Urine Urobilinogen Ur Leukocyte Esterase Urine Glucose 03/05/17 03/05/17 03/05/17 11:44 17:00 17:30 WBC 13.7 H RBC 4.94 Hgb 15.2 Hct 44 MCV 90 MCH 31 MCHC 34 RDW 15 Plt Count 174 MPV 10 Neut % (Auto) 72.7 Lymph % (Auto) 19.1 L [place] % (Auto) 7.4 Eos % (Auto) 0.5 Baso % (Auto) 0.3 Absolute Neuts (auto) 10.0 H Absolute Lymphs (auto) 2.6 Absolute Monos (auto) 1.0 H Absolute Eos (auto) 0.1 Absolute Basos (auto) 0 Absolute Nucleated RBC 0.01 Nucleated RBC % 0 Sodium Potassium Chloride Carbon Dioxide Anion Gap BUN Creatinine Est GFR ( Amer) Est GFR (Non-Af Amer) BUN/Creatinine Ratio Glucose POC Glucose (mg/dL) 240 H 130 H Hemoglobin A1c Calcium Magnesium Total Bilirubin AST ALT Alkaline Phosphatase Total Protein Albumin Globulin Albumin/Globulin Ratio Amylase Lipase Beta HCG, Quant Urine Color Urine Appearance Urine pH Ur Specific [place] Urine Protein Urine Ketones Urine Blood Urine Nitrate Urine Bilirubin Urine Urobilinogen Ur Leukocyte Esterase Urine Glucose 03/05/17 03/05/17 03/05/17 17:30 21:35 21:40 WBC 13.5 H RBC 4.86 Hgb 15.0 Hct 44 MCV 90 MCH 31 MCHC 34 RDW 15 Plt Count 165 MPV 10 Neut % (Auto) 74.7 Lymph % (Auto) 17.2 L [place] % (Auto) 7.6 Eos % (Auto) 0.1 Baso % (Auto) 0.4 Absolute Neuts (auto) 10.1 H Absolute Lymphs (auto) 2.3 Absolute Monos (auto) 1.0 H Absolute Eos (auto) 0 Absolute Basos (auto) 0.1 Absolute Nucleated RBC 0 Nucleated RBC % 0 Sodium Potassium Chloride Carbon Dioxide Anion Gap BUN Creatinine Est GFR ( Amer) Est GFR (Non-Af Amer) BUN/Creatinine Ratio Glucose POC Glucose (mg/dL) 80 Hemoglobin A1c 14.0 H Calcium Magnesium Total Bilirubin AST ALT Alkaline Phosphatase Total Protein Albumin Globulin Albumin/Globulin Ratio Amylase Lipase Beta HCG, Quant Urine Color Urine Appearance Urine pH Ur Specific [place] Urine Protein Urine Ketones Urine Blood Urine Nitrate Urine Bilirubin Urine Urobilinogen Ur Leukocyte Esterase Urine Glucose 03/05/17 03/06/17 03/06/17 21:40 01:12 04:24 WBC RBC Hgb Hct MCV MCH MCHC RDW Plt Count MPV Neut % (Auto) Lymph % (Auto) [place] % (Auto) Eos % (Auto) Baso % (Auto) Absolute Neuts (auto) Absolute Lymphs (auto) Absolute Monos (auto) Absolute Eos (auto) Absolute Basos (auto) Absolute Nucleated RBC Nucleated RBC % Sodium 137 Potassium 3.0 L Chloride 90 L Carbon Dioxide 38 H Anion Gap 9 BUN 31 H Creatinine 1.44 H Est GFR ( Amer) 50.0 Est GFR (Non-Af Amer) 38.9 BUN/Creatinine Ratio 21.5 H Glucose 98 POC Glucose (mg/dL) 75 Hemoglobin A1c Calcium 10.0 Magnesium Total Bilirubin 0.50 AST 22 ALT 14 Alkaline Phosphatase 56 Total Protein 6.8 Albumin 3.6 Globulin 3.2 Albumin/Globulin Ratio 1.1 Amylase 29 Lipase 16 Beta HCG, Quant Urine Color Straw Urine Appearance Clear Urine pH 5.0 Ur Specific [place] 1.010 Urine Protein Negative Urine Ketones Negative Urine Blood Negative Urine Nitrate Negative Urine Bilirubin Negative Urine Urobilinogen Negative Ur Leukocyte Esterase Negative Urine Glucose 2+(150 mg/dl) H 03/06/17 03/06/17 03/06/17 07:36 09:46 09:46 WBC 13.4 H RBC 4.62 Hgb 14.0 Hct 42 MCV 91 MCH 30 MCHC 33 RDW 14 Plt Count 168 MPV 11 H Neut % (Auto) 63.2 Lymph % (Auto) 27.4 [place] % (Auto) 8.9 Eos % (Auto) 0.3 Baso % (Auto) 0.2 Absolute Neuts (auto) 8.5 H Absolute Lymphs (auto) 3.7 Absolute Monos (auto) 1.2 H Absolute Eos (auto) 0 Absolute Basos (auto) 0 Absolute Nucleated RBC 0.01 Nucleated RBC % 0 Sodium 137 Potassium 3.4 L Chloride 93 L Carbon Dioxide 34 H Anion Gap 10 BUN 31 H Creatinine 1.32 H Est GFR ( Amer) 55.2 Est GFR (Non-Af Amer) 43.0 BUN/Creatinine Ratio 23.5 H Glucose 145 H POC Glucose (mg/dL) 90 Hemoglobin A1c Calcium 8.8 Magnesium Total Bilirubin 0.50 AST 20 ALT 13 Alkaline Phosphatase 54 Total Protein 5.9 L Albumin 2.9 L Globulin 3.0 Albumin/Globulin Ratio 1.0 Amylase Lipase Beta HCG, Quant Urine Color Urine Appearance Urine pH Ur Specific [place] Urine Protein Urine Ketones Urine Blood Urine Nitrate Urine Bilirubin Urine Urobilinogen Ur Leukocyte Esterase Urine Glucose 03/06/17 03/06/17 03/06/17 12:12 16:37 21:28 WBC RBC Hgb Hct MCV MCH MCHC RDW Plt Count MPV Neut % (Auto) Lymph % (Auto) [place] % (Auto) Eos % (Auto) Baso % (Auto) Absolute Neuts (auto) Absolute Lymphs (auto) Absolute Monos (auto) Absolute Eos (auto) Absolute Basos (auto) Absolute Nucleated RBC Nucleated RBC % Sodium Potassium Chloride Carbon Dioxide Anion Gap BUN Creatinine Est GFR ( Amer) Est GFR (Non-Af Amer) BUN/Creatinine Ratio Glucose POC Glucose (mg/dL) 81 83 175 H Hemoglobin A1c Calcium Magnesium Total Bilirubin AST ALT Alkaline Phosphatase Total Protein Albumin Globulin Albumin/Globulin Ratio Amylase Lipase Beta HCG, Quant Urine Color Urine Appearance Urine pH Ur Specific [place] Urine Protein Urine Ketones Urine Blood Urine Nitrate Urine Bilirubin Urine Urobilinogen Ur Leukocyte Esterase Urine Glucose 03/07/17 03/07/17 03/07/17 08:47 11:53 11:53 WBC 13.1 H RBC 5.25 Hgb 16.2 H Hct 48 H MCV 91 MCH 31 MCHC 34 RDW 15 Plt Count 204 MPV 10 Neut % (Auto) 59.2 Lymph % (Auto) 30.0 [place] % (Auto) 9.4 H Eos % (Auto) 1.0 Baso % (Auto) 0.4 Absolute Neuts (auto) 7.8 H Absolute Lymphs (auto) 3.9 Absolute Monos (auto) 1.2 H Absolute Eos (auto) 0.1 Absolute Basos (auto) 0 Absolute Nucleated RBC 0.01 Nucleated RBC % 0.1 Sodium 134 Potassium 3.9 Chloride 97 L Carbon Dioxide 29 Anion Gap 8 BUN 21 Creatinine 1.02 H Est GFR ( Amer) 74.4 Est GFR (Non-Af Amer) 57.8 BUN/Creatinine Ratio 20.6 H Glucose 126 H POC Glucose (mg/dL) 85 Hemoglobin A1c Calcium 9.7 Magnesium Total Bilirubin AST ALT Alkaline Phosphatase Total Protein Albumin Globulin Albumin/Globulin Ratio Amylase Lipase Beta HCG, Quant Urine Color Urine Appearance Urine pH Ur Specific [place] Urine Protein Urine Ketones Urine Blood Urine Nitrate Urine Bilirubin Urine Urobilinogen Ur Leukocyte Esterase Urine Glucose 03/07/17 03/07/1717 12:00 17:07 21:28 WBC RBC Hgb Hct MCV MCH MCHC RDW Plt Count MPV Neut % (Auto) Lymph % (Auto) [place] % (Auto) Eos % (Auto) Baso % (Auto) Absolute Neuts (auto) Absolute Lymphs (auto) Absolute Monos (auto) Absolute Eos (auto) Absolute Basos (auto) Absolute Nucleated RBC Nucleated RBC % Sodium Potassium Chloride Carbon Dioxide Anion Gap BUN Creatinine Est GFR ( Amer) Est GFR (Non-Af Amer) BUN/Creatinine Ratio Glucose POC Glucose (mg/dL) 122 H 238 H 244 H Hemoglobin A1c Calcium Magnesium Total Bilirubin AST ALT Alkaline Phosphatase Total Protein Albumin Globulin Albumin/Globulin Ratio Amylase Lipase Beta HCG, Quant Urine Color Urine Appearance Urine pH Ur Specific [place] Urine Protein Urine Ketones Urine Blood Urine Nitrate Urine Bilirubin Urine Urobilinogen Ur Leukocyte Esterase Urine Glucose 03/08/17 03/08/17 03/08/17 07:43 11:42 17:09 WBC RBC Hgb Hct MCV MCH MCHC RDW Plt Count MPV Neut % (Auto) Lymph % (Auto) [place] % (Auto) Eos % (Auto) Baso % (Auto) Absolute Neuts (auto) Absolute Lymphs (auto) Absolute Monos (auto) Absolute Eos (auto) Absolute Basos (auto) Absolute Nucleated RBC Nucleated RBC % Sodium Potassium Chloride Carbon Dioxide Anion Gap BUN Creatinine Est GFR ( Amer) Est GFR (Non-Af Amer) BUN/Creatinine Ratio Glucose POC Glucose (mg/dL) 93 219 H 202 H Hemoglobin A1c Calcium Magnesium Total Bilirubin AST ALT Alkaline Phosphatase Total Protein Albumin Globulin Albumin/Globulin Ratio Amylase Lipase Beta HCG, Quant Urine Color Urine Appearance Urine pH Ur Specific [place] Urine Protein Urine Ketones Urine Blood Urine Nitrate Urine Bilirubin Urine Urobilinogen Ur Leukocyte Esterase Urine Glucose 03/09/17 03/09/17 03/09/17 06:30 06:30 07:40 WBC 8.8 RBC 4.75 Hgb 14.7 Hct 44 MCV 92 MCH 31 MCHC 34 RDW 14 Plt Count 153 MPV 11 H Neut % (Auto) 49.0 Lymph % (Auto) 37.7 [place] % (Auto) 11.4 H Eos % (Auto) 1.5 Baso % (Auto) 0.4 Absolute Neuts (auto) 4.3 Absolute Lymphs (auto) 3.3 Absolute Monos (auto) 1.0 H Absolute Eos (auto) 0.1 Absolute Basos (auto) 0 Absolute Nucleated RBC 0.01 Nucleated RBC % 0.1 Sodium 133 Potassium 3.6 Chloride 100 L Carbon Dioxide 30 Anion Gap 3 BUN 16 Creatinine 0.70 Est GFR ( Amer) 114.9 Est GFR (Non-Af Amer) 89.3 BUN/Creatinine Ratio 22.9 H Glucose 301 H POC Glucose (mg/dL) 235 H Hemoglobin A1c Calcium 9.0 Magnesium Total Bilirubin AST ALT Alkaline Phosphatase Total Protein Albumin Globulin Albumin/Globulin Ratio Amylase Lipase Beta HCG, Quant Urine Color Urine Appearance Urine pH Ur Specific [place] Urine Protein Urine Ketones Urine Blood Urine Nitrate Urine Bilirubin Urine Urobilinogen Ur Leukocyte Esterase Urine Glucose 03/09/17 03/09/17 12:00 16:43 WBC RBC Hgb Hct MCV MCH MCHC RDW Plt Count MPV Neut % (Auto) Lymph % (Auto) [place] % (Auto) Eos % (Auto) Baso % (Auto) Absolute Neuts (auto) Absolute Lymphs (auto) Absolute Monos (auto) Absolute Eos (auto) Absolute Basos (auto) Absolute Nucleated RBC Nucleated RBC % Sodium Potassium Chloride Carbon Dioxide Anion Gap BUN Creatinine Est GFR ( Amer) Est GFR (Non-Af Amer) BUN/Creatinine Ratio Glucose POC Glucose (mg/dL) 262 H 131 H Hemoglobin A1c Calcium Magnesium Total Bilirubin AST ALT Alkaline Phosphatase Total Protein Albumin Globulin Albumin/Globulin Ratio Amylase Lipase Beta HCG, Quant Urine Color Urine Appearance Urine pH Ur Specific [place] Urine Protein Urine Ketones Urine Blood Urine Nitrate Urine Bilirubin Urine Urobilinogen Ur Leukocyte Esterase Urine Glucose Interim video-EEG long-term monitoring report: #01 03/03: Background shows PDR 9, occasional diffuse moderate to high voltage slowing during less alert state/drowsiness. No discharges, no seizures, no patient events #02 03/04: Background as above except for some more frequent slowing in the same distribution as previously described. No clear epileptiform abnormalities. No seizures or patient events. #03 03/05: Patient mostly asleep the majority of the day. During waking, there was a greater degree of non-specific slowing than on the first day but no discharges. No seizures or patient events. #04 03/06: Again there is a greater degree of slowing than the first day as the patient spends much of waking time in an apparent drowsy state. There are some periods of better background which appear similar to the first day's recording. Still much of the time spent sleeping. No seizures or patient events. No discharges. #05 9/12: Background similar to above with greater degree of polymorphic slowing than noted on admission. Still slept a lot but was up in the chair for several hours with an encephalopathic background often evident. No seizures or events. NO discharges. EMU Exam - Exam Physical/Neurological Exam: Physical Exam: General: Awake, alert, essentially at baseline mental status Eyes: normal conjunctiva, pupils were equal and reactive. MSK: LE edema resolved. Derm: Small scabbed lesion noted over right tibia, present on admission Neurological Exam: Mental Status: Awake and alert. Oriented to person, place, and time. Fluent but simple speech. Comprehension intact. Affect appropriate. Pupils 3/3 to 2/2mm. Versions full, no nystagmus, Face symmetric. Tongue ML, palate elevates symmetrically. All limbs antigravity, full strength in UEs. Sensation intact to LT FTN without ataxia. Pt not asked to ambulate. EMU Progress Note Assessment/P - Assessment/Plan Assessment: 46 year old left-handed woman with multiple medical problems include poorly controlled diabetes with associated complications, tachycardia s/p pacemaker and episodes of possible seizures since 2009 which increased in frequency in 2015. These events are characterized by a sense of her breath cutting out, inability to speak and sometimes preceded by nausea. They seem improved on levetiracetam 1500mg BID but not resolved and her EEG was not convincing for epileptiform abnormalities. LTM undertaken to characterize events. No typical events recorded yet. Leg cramps have not been an issue since magnesium replaced. N/V resolved and she had an episode of diarrhea, continues to slowly improve in terms of level of alertness during the day. Yesterday she also had fecal incontinence. It has come to attention that there was a med error with her Linzess as it was mislabeled by pharmacy and she was getting twice her usual home dosage. This has been corrected. Today she appears essentially at her baseline to me. Suspect viral gastroenteritis vs diabetic gastroparesis. BGs have been in the normal to high range, but still lower than what she runs at home. Similar for BPs. Appreciate hospitalist involvement in the care of this patient. Plan: * Continue terminal worker video EEG monitoring to capture typical episodes * Seizure precautions * Ativan 1mg IV for seizure >3 minutes * levetiracetam d/c'd after PM dose on 03/06. * Tylenol for pain. * photic stimulation today * continue other home meds with changes/holds per hospital medicine * back on consistent carb diet * offered coloring, movies, watching tv, drawing, etc to try and keep pt awake. Up to chair ad arnulfo * as per Dr Ferreira, pt will be discharged on a lesser dose of Lantus and Novolog, should hold diuretics and Imdur until 03/11 and should hold Linzess until diarrhea resolves. * will discharge tomorrow around noon. Will need FU with mortgage clerk (Dr Tellez)
[2017-03-09] MEDS: Omeprazole CAP* 20 MG PO SCH (18:28)
[2017-03-09] MEDS: Atorvastatin* 10 MG TAB PO SCH (20:48)
[2017-03-10] MEDS: Levothyroxine TAB* 125 MCG TAB PO SCH (06:10)
[2017-03-10 07:26] VITALS: BP 112/56
[2017-03-10] MEDS: Insulin LISPRO* 1 UNITS UNIT SUBCUT SCH ×2 (07:33→12:12)
[2017-03-10] MEDS ORDERED: PTO:Linaclotide (NF) 290 MCG CAP PO SCH (09:00)
[2017-03-10] MEDS ORDERED: levETIRAcetam TAB* 500 MG PO SCH (09:00)
[2017-03-10] MEDS: Aspirin Low Dose CHEW TAB* 81 MG PO SCH (09:01)
[2017-03-10] MEDS: Cyanocobalamin TAB* 500 MCG PO SCH (09:01)
[2017-03-10] MEDS: Gabapentin CAP(*) 100 MG PO SCH ×2 (09:02→14:13)
[2017-03-10] MEDS: LUBIPROSTONE 24 MCG PO SCH (09:02)
[2017-03-10] MEDS: Magnesium Oxide TAB* 400 MG PO SCH ×2 (09:03→14:13)
[2017-03-10] MEDS: Metoprolol Tartrate TAB* 25 MG PO SCH (09:03)
[2017-03-10] MEDS: URSODIOL 250 MG PO SCH (09:04)
[2017-03-10] MEDS: Rivaroxaban TAB(*) 20 MG TAB PO SCH (09:04)
[2017-03-10] MEDS: Potassium Chlor TAB* 20 MEQ TAB.ER PO SCH (09:04)
[2017-03-10] MEDS: Insulin GLARGINE(*) 1 UNITS UNIT SUBCUT SCH (09:11)
--- NOTE | 2017-03-10 11:11 | DS ---
[facility] Discharge - Discharge Summary Discharge Summary: Admitted: 03/03/17 - 03/10/17 Attending: Chantell Weeks MD Admitting Diagnosis: possible seizures Discharge Diagnosis: same Admission History (From Admission H&P): Lydia Mcmahon is a 46 year old woman with a history of diabetes with multiple complications, asthma, intellectual disability and tachycardia s/p pacemaker in March. She has been having episodes of possible seizures since approximately 2009, after she had a cardiac ablation. When I first saw her in Feb 2015, they had been getting more frequent and more bothersome. She initially reported that she would sometimes get nauseated at the start of an episode, then gets a feeling like her airway closes in and she loses balance. She denies any gagging with these episodes. She has fallen in the past because of episodes. She feel like she cannot talk during these episodes and her tongue gets numb. She had initially reported in 2014 that they could last between 15 and 30 minutes. She is tired afterward. It has been unclear whether she loses memory for the event. She cannot identify any triggers. She had checked her blood glucose at home when these occurred and never found it to be low. She was started on levetiracetam and this was titrated up to the current dose of 1500mg BID. She indicates that these episodes are improved, but not resolved. Her work up has included MRI brain and EEG. MRI did not show an epileptogenic lesion and EEG was not convincing for seizure either. She has also had an event monitor, which diagnosed paroxysmal atrial fibrillation, though episodes of AF did not correlate with her symptoms. She has had a pulmonary evaluation as well. Admission Examination: Physical Exam: General: Well appearing in no acute distress. Eyes: normal conjunctiva, pupils were equal and reactive. Neck: supple, no bruit ENT: atraumatic, normal oropharynx. She is edentulous Pulmonary: clear to auscultation, good respiratory effort Cardiac: regular rate and rhythmic, slight cardiac murmur, pulses palpable MSK: pitting lower extremity edema Derm: no rashes or lesions Neurological Exam: Mental Status: Awake and alert. Oriented to person, place, and time. Fluent but simple speech. Comprehension intact. Affect appropriate. Cranial Nerves: Visual dunn full to confrontation. Pupils were equal, round, and reactive constricting from 3mm to 2mm. Versions were full and without nystagmus. Facial musculature and sensation were symmetric. Hearing grossly intact to finger rub. Palate was upgoing bilaterally. Tongue was midline. Shoulder shrug was symmetric. Motor: Bulk, tone, and strength were normal throughout. Pronator drift was absent. There were no abnormal movements. Sensory: Sensation to light touch intact. Romberg was deferred. Coordination: Finger to nose intact. Reflexes: 2+ throughout the upper and lower extremities except absent ankle jerks. Gait: antalgic as she was seen ambulating to the bathroom right after she'd experienced a charley horse in her right leg Admission AED Medications: levetiracetam 1500mg BID. Hospital Course: The patient was admitted to the epilepsy service for long-term video EEG monitoring. The patient had 0 events. The interictal EEG demonstrated periods of slowing, which became much worse when she was ill, as described below. At times, this slowing was frontally predominant while at other times it was diffuse or could have a left temporal predominance. On the day prior to discharge, periods of temporal intermittent rhythmic delta were seen. On admission, Lydia was continued on all of her home medications at the same dosages, except levetiracetam was reduced and eventually discontinued. On 03/04, around 1pm, she had hypoglycemia to 53 by fingerstick. She was given juice and snacks and hypoglycemia persisted between 50 and 60. At 15:08, a BMP was drawn which showed glucose of 40 and magnesium of 1.3 (she was also having leg cramps) . She was given 25gm dextrose and by 16:02 her BG was 245. She did not have hypoglycemia to this degree again during the admission, but in general her BGs ran between 70 and 245. On 03/09 at 06:30, BG was 301. Lantus was reduced to 30 units ultimately and Novolog to 20 units AC. In addition to hypoglycemia, Lydia had a 36 hour period of nausea, vomiting and some diarrhea starting on 03/05. She was not febrile during this time. WBC on was elevated to 13.7 and remained so through 03/07. On 03/09, it was 8.8. She had poor oral intake during this time. Hospital medicine was consulted. The above mentioned changes in insulin were made. In addition, she was started on Reglan prn. An abdominal xray was unremarkable. Amylase and lipase were normal. Diuretics were held and Imdur was held secondary to low blood pressure. Eventually, Linzess was held as well. The etiology of this N/V and diarrhea was thought to either be viral or possible related to diabetic gastroparesis. She recovered over several days and appeared at her baseline by 03/08 in the PM. She was instructed to resume diuretics and Imdur on 03/11. She was instructed to continue to hold Linzess until diarrhea resolves. The following medication medication changes were made during the testing: Lantus decreased to 30 units. Novolog decreased to 20 units AC. Diuretics and Imdur held, ok to restart on 03/11. Linzess held, ok to restart once diarrhea resolves. Levetiracetam restarted at the previous dose. Discharge Examination: same as admission except no further leg cramps. Edema is slightly improved compared to admission but returning. Destination: Home. Diet: Regular. Follow-up: with Dr Tellez on 03/15 With PCP on 03/[address] Weeks on 05/24 Home Medications Medication Instructions Recorded Confirmed Type RX: Atorvastatin* [Lipitor 10 MG*] 10 mg PO DAILY 07/08/13 03/03/17 History RX: Fluticasone-Salmeterol 100-50* 1 puff INH BID PRN 07/08/13 03/03/17 History [Advair Diskus 100-50*] RX: Gabapentin* [Neurontin*] 100 mg PO TID MDD 300 07/08/13 03/03/17 History RX: Levothyroxine TAB* [Synthroid 250 mcg PO 0800 07/08/13 03/03/17 History 100 MCG TAB*] Metoprolol Tartrate 25 mg PO BID 03/03/17 03/03/17 History Potassium Chloride ER 20 meq PO QPM 03/03/17 03/03/17 History Potassium Chloride ER 40 meq PO DAILY 03/03/17 03/03/17 History RX: Aspirin [Aspirin Low Strength] 81 mg PO DAILY 03/03/17 03/03/17 History RX: Dapagliflozin-Metformin HCl 1 mg PO QAM 03/03/17 03/03/17 History [Xigduo Xr 10-1000 mg] RX: Levetiracetam [Keppra 500] 1,500 mg PO BID 03/03/17 03/03/17 History RX: Lubiprostone [Amitiza] 24 mcg PO BID 03/03/17 03/03/17 History RX: Magnesium Oxide (mg Supplement 400 mg PO TID 03/03/17 03/03/17 History [Magnesium Oxide] RX: Metolazone 3 tab PO QAM 03/03/17 03/03/17 History RX: Omeprazole 40 mg PO QPM 03/03/17 03/03/17 History RX: Rivaroxaban TAB(*) [Xarelto 20 20 mg PO DAILY 03/03/17 03/03/17 History mg] RX: Spironolactone 50 mg PO DAILY 03/03/17 03/03/17 History RX: Ursodiol 250 mg PO BID 03/03/17 03/03/17 History Vitamin B 12 1,000 mg PO QAM 03/03/17 03/03/17 History Novalog 20 unit SUBCUT AC #0 03/10/17 03/03/17 Rx RX: Insulin GLARGINE(*) [Lantus(*)] 30 units SUBCUT DAILY unit 03/10/17 Rx RX: Isosorbide Mononitrate ER TAB* 45 mg PO DAILY #0 03/10/17 03/03/17 Rx [Imdur ER TAB*] RX: Linaclotide [Linzess] 290 mcg PO DAILY #0 03/10/17 03/03/17 Rx RX: Torsemide 80 mg PO BID #0 03/10/17 03/03/17 Rx
--- NOTE | 2017-03-10 11:18 | PN ---
Epilepsy Service Progress Note - Subjective DOS 03/10/17 No overnight events. No seizures. She's ready to go home. - Medications Active Medications: Acetaminophen (Tylenol Tab*) 650 mg PO Q6H PRN PRN Reason: PAIN Last Admin: 03/08/17 06:15 Dose: 650 mg Albuterol (Ventolin 2.5 Mg/3 Ml Neb.Fabby*) 2.5 mg INH Q2H PRN PRN Reason: SOB/WHEEZING Aspirin (Aspirin Low Dose Tab*) 81 mg PO DAILY [facility] Last Admin: 03/10/17 09:01 Dose: 81 mg Atorvastatin Calcium (Lipitor*) 10 mg PO BEDTIME [facility] Last Admin: 03/09/17 20:48 Dose: 10 mg Cyanocobalamin (Vitamin B12 Tab*) 1,000 mcg PO QAM [facility] Last Admin: 03/10/17 09:01 Dose: 1,000 mcg Dextrose (D50w Syringe 50 Ml*) 12.5 gm IV PUSH DAILY PRN PRN Reason: BG <70 refractory to juice Dextrose (D50w Syringe 50 Ml*) 12.5 gm IV PUSH .FOR FS < 60 - SS PRN PRN Reason: FS < 60 Diphenhydramine HCl (Benadryl Po*) 25 mg PO Q6H PRN PRN Reason: ITCHING Gabapentin (Neurontin Cap(*)) 100 mg PO TID [facility] Last Admin: 03/10/17 09:02 Dose: 100 mg Insulin Glargine (Lantus(*)) 30 units SUBCUT DAILY [facility] Last Admin: 03/10/17 09:11 Dose: 30 units Insulin Human Lispro (Humalog*) 0 units SUBCUT AC [facility] PRN Reason: Protocol Last Admin: 03/10/17 07:33 Dose: 9 units Levetiracetam (Keppra Tab*) 1,500 mg PO BID [facility] Last Admin: 03/10/17 09:41 Dose: 1,500 mg Levothyroxine Sodium (Synthroid Tab*) 250 mcg PO DAILY@0600 [facility] Last Admin: 03/10/17 06:10 Dose: 250 mcg Loperamide HCl (Imodium Cap*) 2 mg PO ONCE PRN PRN Reason: LOOSE STOOLS Lorazepam (Ativan Inj*) 1 mg IV Q8H PRN PRN Reason: Seizure > 3 minutes Lubiprostone (Amitiza (Nf)) 24 mcg PO BID [facility] Last Admin: 03/10/17 09:02 Dose: 24 mcg Magnesium Oxide (Magox 400 Tab*) 400 mg PO TID [facility] Last Admin: 03/10/17 09:03 Dose: 400 mg Metoclopramide HCl (Reglan Iv*) 10 mg IV Q6H PRN PRN Reason: NAUSEA/VOMITING Last Admin: 03/06/17 08:25 Dose: 10 mg Metoprolol Tartrate (Lopressor Tab*) 25 mg PO BID [facility] Last Admin: 03/10/17 09:03 Dose: 25 mg Mometasone Furoate/Formoterol Fumar (Dulera 100/5 Mdi*) 2 puff INH BID PRN PRN Reason: SOB/WHEEZING Omeprazole (Prilosec Cap*) 40 mg PO QPM [facility] Last Admin: 03/09/17 18:28 Dose: 40 mg Ondansetron HCl (Zofran Inj*) 4 mg IV Q6H PRN PRN Reason: NAUSEA Last Admin: 03/05/17 13:39 Dose: 4 mg Potassium Chloride (Klor Con Er Tab*) 20 meq PO QPM [facility] Last Admin: 03/09/17 18:29 Dose: 20 meq Potassium Chloride (Klor Con Er Tab*) 40 meq PO DAILY [facility] Last Admin: 03/10/17 09:04 Dose: 40 meq Rivaroxaban (Xarelto (*)) 20 mg PO DAILY [facility] Last Admin: 03/10/17 09:04 Dose: 20 mg Ursodiol (Sophie 250(Nf)) 250 mg PO BID [facility] Last Admin: 03/10/17 09:04 Dose: 250 mg EMU Diagnostics - Diagnostic Most Recent Vital Signs: Vital Signs: Temp Pulse Resp BP Pulse Ox 98.1 F 70 18 112/56 98 03/10/17 07:20 03/10/17 07:20 03/10/17 08:00 03/10/17 07:20 03/10/17 07:20 Lab Results: Laboratory Tests 03/04/17 03/04/17 03/04/17 11:30 13:51 14:22 WBC RBC Hgb Hct MCV MCH MCHC RDW Plt Count MPV Neut % (Auto) Lymph % (Auto) [place]clenn[place] % (Auto) Eos % (Auto) Baso % (Auto) Absolute Neuts (auto) Absolute Lymphs (auto) Absolute Monos (auto) Absolute Eos (auto) Absolute Basos (auto) Absolute Nucleated RBC Nucleated RBC % Sodium Potassium Chloride Carbon Dioxide Anion Gap BUN Creatinine Est GFR ( Amer) Est GFR (Non-Af Amer) BUN/Creatinine Ratio Glucose POC Glucose (mg/dL) 150 H 53 L 59 L Hemoglobin A1c Calcium Magnesium Total Bilirubin AST ALT Alkaline Phosphatase Total Protein Albumin Globulin Albumin/Globulin Ratio Amylase Lipase Beta HCG, Quant Urine Color Urine Appearance Urine pH Ur Specific [place] Urine Protein Urine Ketones Urine Blood Urine Nitrate Urine Bilirubin Urine Urobilinogen Ur Leukocyte Esterase Urine Glucose 03/04/17 03/04/17 03/04/17 14:40 15:08 15:19 WBC RBC Hgb Hct MCV MCH MCHC RDW Plt Count MPV Neut % (Auto) Lymph % (Auto) [place]clennan % (Auto) Eos % (Auto) Baso % (Auto) Absolute Neuts (auto) Absolute Lymphs (auto) Absolute Monos (auto) Absolute Eos (auto) Absolute Basos (auto) Absolute Nucleated RBC Nucleated RBC % Sodium 137 Potassium 3.2 L Chloride 98 L Carbon Dioxide 33 H Anion Gap 6 BUN 17 Creatinine 1.02 H Est GFR ( Amer) 74.4 Est GFR (Non-Af Amer) 57.8 BUN/Creatinine Ratio 16.7 Glucose 40 L POC Glucose (mg/dL) 61 L 64 L Hemoglobin A1c Calcium 9.2 Magnesium 1.3 L Total Bilirubin AST ALT Alkaline Phosphatase Total Protein Albumin Globulin Albumin/Globulin Ratio Amylase Lipase Beta HCG, Quant Urine Color Urine Appearance Urine pH Ur Specific [place] Urine Protein Urine Ketones Urine Blood Urine Nitrate Urine Bilirubin Urine Urobilinogen Ur Leukocyte Esterase Urine Glucose 03/04/17 03/04/17 03/04/17 15:49 16:02 17:40 WBC RBC Hgb Hct MCV MCH MCHC RDW Plt Count MPV Neut % (Auto) Lymph % (Auto) [place]cl[place]an % (Auto) Eos % (Auto) Baso % (Auto) Absolute Neuts (auto) Absolute Lymphs (auto) Absolute Monos (auto) Absolute Eos (auto) Absolute Basos (auto) Absolute Nucleated RBC Nucleated RBC % Sodium Potassium Chloride Carbon Dioxide Anion Gap BUN Creatinine Est GFR ( Amer) Est GFR (Non-Af Amer) BUN/Creatinine Ratio Glucose POC Glucose (mg/dL) 54 L 245 H 122 H Hemoglobin A1c Calcium Magnesium Total Bilirubin AST ALT Alkaline Phosphatase Total Protein Albumin Globulin Albumin/Globulin Ratio Amylase Lipase Beta HCG, Quant Urine Color Urine Appearance Urine pH Ur Specific [place] Urine Protein Urine Ketones Urine Blood Urine Nitrate Urine Bilirubin Urine Urobilinogen Ur Leukocyte Esterase Urine Glucose 03/04/17 03/04/17 03/05/17 18:20 19:54 06:17 WBC RBC Hgb Hct MCV MCH MCHC RDW Plt Count MPV Neut % (Auto) Lymph % (Auto) [place]cl[place]an % (Auto) Eos % (Auto) Baso % (Auto) Absolute Neuts (auto) Absolute Lymphs (auto) Absolute Monos (auto) Absolute Eos (auto) Absolute Basos (auto) Absolute Nucleated RBC Nucleated RBC % Sodium Potassium Chloride Carbon Dioxide Anion Gap BUN Creatinine Est GFR ( Amer) Est GFR (Non-Af Amer) BUN/Creatinine Ratio Glucose POC Glucose (mg/dL) 132 H 127 H 158 H Hemoglobin A1c Calcium Magnesium Total Bilirubin AST ALT Alkaline Phosphatase Total Protein Albumin Globulin Albumin/Globulin Ratio Amylase Lipase Beta HCG, Quant Urine Color Urine Appearance Urine pH Ur Specific [place] Urine Protein Urine Ketones Urine Blood Urine Nitrate Urine Bilirubin Urine Urobilinogen Ur Leukocyte Esterase Urine Glucose 03/05/17 03/05/17 03/05/17 07:42 10:15 11:38 WBC RBC Hgb Hct MCV MCH MCHC RDW Plt Count MPV Neut % (Auto) Lymph % (Auto) [place]cl[place]an % (Auto) Eos % (Auto) Baso % (Auto) Absolute Neuts (auto) Absolute Lymphs (auto) Absolute Monos (auto) Absolute Eos (auto) Absolute Basos (auto) Absolute Nucleated RBC Nucleated RBC % Sodium Potassium Chloride Carbon Dioxide Anion Gap BUN Creatinine Est GFR ( Amer) Est GFR (Non-Af Amer) BUN/Creatinine Ratio Glucose POC Glucose (mg/dL) 175 H Hemoglobin A1c Calcium Magnesium TNP 1.9 Total Bilirubin AST ALT Alkaline Phosphatase Total Protein Albumin Globulin Albumin/Globulin Ratio Amylase Lipase Beta HCG, Quant < 0.60 Urine Color Urine Appearance Urine pH Ur Specific [place] Urine Protein Urine Ketones Urine Blood Urine Nitrate Urine Bilirubin Urine Urobilinogen Ur Leukocyte Esterase Urine Glucose 03/05/17 03/05/17 03/05/17 11:44 17:00 17:30 WBC 13.7 H RBC 4.94 Hgb 15.2 Hct 44 MCV 90 MCH 31 MCHC 34 RDW 15 Plt Count 174 MPV 10 Neut % (Auto) 72.7 Lymph % (Auto) 19.1 L Mclennan % (Auto) 7.4 Eos % (Auto) 0.5 Baso % (Auto) 0.3 Absolute Neuts (auto) 10.0 H Absolute Lymphs (auto) 2.6 Absolute Monos (auto) 1.0 H Absolute Eos (auto) 0.1 Absolute Basos (auto) 0 Absolute Nucleated RBC 0.01 Nucleated RBC % 0 Sodium Potassium Chloride Carbon Dioxide Anion Gap BUN Creatinine Est GFR ( Amer) Est GFR (Non-Af Amer) BUN/Creatinine Ratio Glucose POC Glucose (mg/dL) 240 H 130 H Hemoglobin A1c Calcium Magnesium Total Bilirubin AST ALT Alkaline Phosphatase Total Protein Albumin Globulin Albumin/Globulin Ratio Amylase Lipase Beta HCG, Quant Urine Color Urine Appearance Urine pH Ur Specific [place] Urine Protein Urine Ketones Urine Blood Urine Nitrate Urine Bilirubin Urine Urobilinogen Ur Leukocyte Esterase Urine Glucose 03/05/17 03/05/17 03/05/17 17:30 21:35 21:40 WBC 13.5 H RBC 4.86 Hgb 15.0 Hct 44 MCV 90 MCH 31 MCHC 34 RDW 15 Plt Count 165 MPV 10 Neut % (Auto) 74.7 Lymph % (Auto) 17.2 L Mclennan % (Auto) 7.6 Eos % (Auto) 0.1 Baso % (Auto) 0.4 Absolute Neuts (auto) 10.1 H Absolute Lymphs (auto) 2.3 Absolute Monos (auto) 1.0 H Absolute Eos (auto) 0 Absolute Basos (auto) 0.1 Absolute Nucleated RBC 0 Nucleated RBC % 0 Sodium Potassium Chloride Carbon Dioxide Anion Gap BUN Creatinine Est GFR ( Amer) Est GFR (Non-Af Amer) BUN/Creatinine Ratio Glucose POC Glucose (mg/dL) 80 Hemoglobin A1c 14.0 H Calcium Magnesium Total Bilirubin AST ALT Alkaline Phosphatase Total Protein Albumin Globulin Albumin/Globulin Ratio Amylase Lipase Beta HCG, Quant Urine Color Urine Appearance Urine pH Ur Specific [place] Urine Protein Urine Ketones Urine Blood Urine Nitrate Urine Bilirubin Urine Urobilinogen Ur Leukocyte Esterase Urine Glucose 03/05/17 03/06/17 03/06/17 21:40 01:12 04:24 WBC RBC Hgb Hct MCV MCH MCHC RDW Plt Count MPV Neut % (Auto) Lymph % (Auto) [place]cl[place]an % (Auto) Eos % (Auto) Baso % (Auto) Absolute Neuts (auto) Absolute Lymphs (auto) Absolute Monos (auto) Absolute Eos (auto) Absolute Basos (auto) Absolute Nucleated RBC Nucleated RBC % Sodium 137 Potassium 3.0 L Chloride 90 L Carbon Dioxide 38 H Anion Gap 9 BUN 31 H Creatinine 1.44 H Est GFR ( Amer) 50.0 Est GFR (Non-Af Amer) 38.9 BUN/Creatinine Ratio 21.5 H Glucose 98 POC Glucose (mg/dL) 75 Hemoglobin A1c Calcium 10.0 Magnesium Total Bilirubin 0.50 AST 22 ALT 14 Alkaline Phosphatase 56 Total Protein 6.8 Albumin 3.6 Globulin 3.2 Albumin/Globulin Ratio 1.1 Amylase 29 Lipase 16 Beta HCG, Quant Urine Color Straw Urine Appearance Clear Urine pH 5.0 Ur Specific [place] 1.010 Urine Protein Negative Urine Ketones Negative Urine Blood Negative Urine Nitrate Negative Urine Bilirubin Negative Urine Urobilinogen Negative Ur Leukocyte Esterase Negative Urine Glucose 2+(150 mg/dl) H 03/06/17 03/06/17 03/06/17 07:36 09:46 09:46 WBC 13.4 H RBC 4.62 Hgb 14.0 Hct 42 MCV 91 MCH 30 MCHC 33 RDW 14 Plt Count 168 MPV 11 H Neut % (Auto) 63.2 Lymph % (Auto) 27.4 Mclennan % (Auto) 8.9 Eos % (Auto) 0.3 Baso % (Auto) 0.2 Absolute Neuts (auto) 8.5 H Absolute Lymphs (auto) 3.7 Absolute Monos (auto) 1.2 H Absolute Eos (auto) 0 Absolute Basos (auto) 0 Absolute Nucleated RBC 0.01 Nucleated RBC % 0 Sodium 137 Potassium 3.4 L Chloride 93 L Carbon Dioxide 34 H Anion Gap 10 BUN 31 H Creatinine 1.32 H Est GFR ( Amer) 55.2 Est GFR (Non-Af Amer) 43.0 BUN/Creatinine Ratio 23.5 H Glucose 145 H POC Glucose (mg/dL) 90 Hemoglobin A1c Calcium 8.8 Magnesium Total Bilirubin 0.50 AST 20 ALT 13 Alkaline Phosphatase 54 Total Protein 5.9 L Albumin 2.9 L Globulin 3.0 Albumin/Globulin Ratio 1.0 Amylase Lipase Beta HCG, Quant Urine Color Urine Appearance Urine pH Ur Specific [place] Urine Protein Urine Ketones Urine Blood Urine Nitrate Urine Bilirubin Urine Urobilinogen Ur Leukocyte Esterase Urine Glucose 03/06/17 03/06/17 03/06/17 12:12 16:37 21:28 WBC RBC Hgb Hct MCV MCH MCHC RDW Plt Count MPV Neut % (Auto) Lymph % (Auto) [place]cl[place]an % (Auto) Eos % (Auto) Baso % (Auto) Absolute Neuts (auto) Absolute Lymphs (auto) Absolute Monos (auto) Absolute Eos (auto) Absolute Basos (auto) Absolute Nucleated RBC Nucleated RBC % Sodium Potassium Chloride Carbon Dioxide Anion Gap BUN Creatinine Est GFR ( Amer) Est GFR (Non-Af Amer) BUN/Creatinine Ratio Glucose POC Glucose (mg/dL) 81 83 175 H Hemoglobin A1c Calcium Magnesium Total Bilirubin AST ALT Alkaline Phosphatase Total Protein Albumin Globulin Albumin/Globulin Ratio Amylase Lipase Beta HCG, Quant Urine Color Urine Appearance Urine pH Ur Specific [place] Urine Protein Urine Ketones Urine Blood Urine Nitrate Urine Bilirubin Urine Urobilinogen Ur Leukocyte Esterase Urine Glucose 03/07/17 03/07/17 03/07/17 08:47 11:53 11:53 WBC 13.1 H RBC 5.25 Hgb 16.2 H Hct 48 H MCV 91 MCH 31 MCHC 34 RDW 15 Plt Count 204 MPV 10 Neut % (Auto) 59.2 Lymph % (Auto) 30.0 Mclennan % (Auto) 9.4 H Eos % (Auto) 1.0 Baso % (Auto) 0.4 Absolute Neuts (auto) 7.8 H Absolute Lymphs (auto) 3.9 Absolute Monos (auto) 1.2 H Absolute Eos (auto) 0.1 Absolute Basos (auto) 0 Absolute Nucleated RBC 0.01 Nucleated RBC % 0.1 Sodium 134 Potassium 3.9 Chloride 97 L Carbon Dioxide 29 Anion Gap 8 BUN 21 Creatinine 1.02 H Est GFR ( Amer) 74.4 Est GFR (Non-Af Amer) 57.8 BUN/Creatinine Ratio 20.6 H Glucose 126 H POC Glucose (mg/dL) 85 Hemoglobin A1c Calcium 9.7 Magnesium Total Bilirubin AST ALT Alkaline Phosphatase Total Protein Albumin Globulin Albumin/Globulin Ratio Amylase Lipase Beta HCG, Quant Urine Color Urine Appearance Urine pH Ur Specific [place] Urine Protein Urine Ketones Urine Blood Urine Nitrate Urine Bilirubin Urine Urobilinogen Ur Leukocyte Esterase Urine Glucose 03/07/17 03/07/17 03/07/17 12:00 17:07 21:28 WBC RBC Hgb Hct MCV MCH MCHC RDW Plt Count MPV Neut % (Auto) Lymph % (Auto) [place]cl[place] % (Auto) Eos % (Auto) Baso % (Auto) Absolute Neuts (auto) Absolute Lymphs (auto) Absolute Monos (auto) Absolute Eos (auto) Absolute Basos (auto) Absolute Nucleated RBC Nucleated RBC % Sodium Potassium Chloride Carbon Dioxide Anion Gap BUN Creatinine Est GFR ( Amer) Est GFR (Non-Af Amer) BUN/Creatinine Ratio Glucose POC Glucose (mg/dL) 122 H 238 H 244 H Hemoglobin A1c Calcium Magnesium Total Bilirubin AST ALT Alkaline Phosphatase Total Protein Albumin Globulin Albumin/Globulin Ratio Amylase Lipase Beta HCG, Quant Urine Color Urine Appearance Urine pH Ur Specific [place] Urine Protein Urine Ketones Urine Blood Urine Nitrate Urine Bilirubin Urine Urobilinogen Ur Leukocyte Esterase Urine Glucose 03/08/17 03/08/17 03/08/17 07:43 11:42 17:09 WBC RBC Hgb Hct MCV MCH MCHC RDW Plt Count MPV Neut % (Auto) Lymph % (Auto) [place]cl[place] % (Auto) Eos % (Auto) Baso % (Auto) Absolute Neuts (auto) Absolute Lymphs (auto) Absolute Monos (auto) Absolute Eos (auto) Absolute Basos (auto) Absolute Nucleated RBC Nucleated RBC % Sodium Potassium Chloride Carbon Dioxide Anion Gap BUN Creatinine Est GFR ( Amer) Est GFR (Non-Af Amer) BUN/Creatinine Ratio Glucose POC Glucose (mg/dL) 93 219 H 202 H Hemoglobin A1c Calcium Magnesium Total Bilirubin AST ALT Alkaline Phosphatase Total Protein Albumin Globulin Albumin/Globulin Ratio Amylase Lipase Beta HCG, Quant Urine Color Urine Appearance Urine pH Ur Specific [place] Urine Protein Urine Ketones Urine Blood Urine Nitrate Urine Bilirubin Urine Urobilinogen Ur Leukocyte Esterase Urine Glucose 03/09/17 03/09/17 03/09/17 06:30 06:30 07:40 WBC 8.8 RBC 4.75 Hgb 14.7 Hct 44 MCV 92 MCH 31 MCHC 34 RDW 14 Plt Count 153 MPV 11 H Neut % (Auto) 49.0 Lymph % (Auto) 37.7 Mclennan % (Auto) 11.4 H Eos % (Auto) 1.5 Baso % (Auto) 0.4 Absolute Neuts (auto) 4.3 Absolute Lymphs (auto) 3.3 Absolute Monos (auto) 1.0 H Absolute Eos (auto) 0.1 Absolute Basos (auto) 0 Absolute Nucleated RBC 0.01 Nucleated RBC % 0.1 Sodium 133 Potassium 3.6 Chloride 100 L Carbon Dioxide 30 Anion Gap 3 BUN 16 Creatinine 0.70 Est GFR ( Amer) 114.9 Est GFR (Non-Af Amer) 89.3 BUN/Creatinine Ratio 22.9 H Glucose 301 H POC Glucose (mg/dL) 235 H Hemoglobin A1c Calcium 9.0 Magnesium Total Bilirubin AST ALT Alkaline Phosphatase Total Protein Albumin Globulin Albumin/Globulin Ratio Amylase Lipase Beta HCG, Quant Urine Color Urine Appearance Urine pH Ur Specific [place] Urine Protein Urine Ketones Urine Blood Urine Nitrate Urine Bilirubin Urine Urobilinogen Ur Leukocyte Esterase Urine Glucose 03/09/17 03/09/17 03/10/17 12:00 16:43 07:22 WBC RBC Hgb Hct MCV MCH MCHC RDW Plt Count MPV Neut % (Auto) Lymph % (Auto) [place]cl[place] % (Auto) Eos % (Auto) Baso % (Auto) Absolute Neuts (auto) Absolute Lymphs (auto) Absolute Monos (auto) Absolute Eos (auto) Absolute Basos (auto) Absolute Nucleated RBC Nucleated RBC % Sodium Potassium Chloride Carbon Dioxide Anion Gap BUN Creatinine Est GFR ( Amer) Est GFR (Non-Af Amer) BUN/Creatinine Ratio Glucose POC Glucose (mg/dL) 262 H 131 H 253 H Hemoglobin A1c Calcium Magnesium Total Bilirubin AST ALT Alkaline Phosphatase Total Protein Albumin Globulin Albumin/Globulin Ratio Amylase Lipase Beta HCG, Quant Urine Color Urine Appearance Urine pH Ur Specific [place] Urine Protein Urine Ketones Urine Blood Urine Nitrate Urine Bilirubin Urine Urobilinogen Ur Leukocyte Esterase Urine Glucose Interim video-EEG long-term monitoring report: #01 03/03: Background shows PDR 9, occasional diffuse moderate to high voltage slowing during less alert state/drowsiness. No discharges, no seizures, no patient events #02 03/04: Background as above except for some more frequent slowing in the same distribution as previously described. No clear epileptiform abnormalities. No seizures or patient events. #03 03/05: Patient mostly asleep the majority of the day. During waking, there was a greater degree of non-specific slowing than on the first day but no discharges. No seizures or patient events. #04 03/06: Again there is a greater degree of slowing than the first day as the patient spends much of waking time in an apparent drowsy state. There are some periods of better background which appear similar to the first day's recording. Still much of the time spent sleeping. No seizures or patient events. No discharges. #05 /12: Background similar to above with greater degree of polymorphic slowing than noted on admission. Still slept a lot but was up in the chair for several hours with an encephalopathic background often evident. No seizures or events. NO discharges. #06 /: Background similar to previous day but less slowing overall. Some FIRDA. At times, appears to have some TIRDA as well. No discharges. No events #07 03/09: Background similar to admission in terms of periods of higher voltage slowing alternating with normal background. Again note periods of left temporal intermittent rhythmic delta activity (TIRDA) but also periods of FIRDA. No discharges. No events. Photic stimulation was performed and was unremarkable. #08 03/10: Background as previously described. No discharges, no seizures, no events EMU Exam - Exam Physical/Neurological Exam: Physical Exam: General: Awake, alert, essentially at baseline mental status Eyes: normal conjunctiva, pupils were equal and reactive. MSK: LE edema present, not as bad as admission. Derm: Small scabbed lesion noted over right tibia, present on admission Neurological Exam: Mental Status: Awake and alert. Oriented to person, place, and time. Fluent but simple speech. Comprehension intact. Affect appropriate. Pupils 3/3 to 2/2mm. Versions full, no nystagmus, Face symmetric. Tongue ML, palate elevates symmetrically. All limbs antigravity, full strength in UEs. Sensation intact to LT FTN without ataxia. Pt not asked to ambulate. EMU Progress Note Assessment/P - Assessment/Plan Assessment: 46 year old left-handed woman with multiple medical problems include poorly controlled diabetes with associated complications, tachycardia s/p pacemaker and episodes of possible seizures since 2009 which increased in frequency in 2015. These events are characterized by a sense of her breath cutting out, inability to speak and sometimes preceded by nausea. They seem improved on levetiracetam 1500mg BID but not resolved and her EEG was not convincing for epileptiform abnormalities. LTM undertaken to characterize events. No typical events recorded. She is ready for discharge today. Appt has been moved up for Dr. Tellez (cath lab radiological technologist). Appt also with PCP next week. See discharge paperwork for dates. Plan: * d/c residential video EEG monitoring * levetiracetam 1500mg BID restarted. * home care agency to receive discharge summary to set up visit as well. * needs continued diabetic education * as per Dr Ferreira, pt will be discharged on a lesser dose of Lantus and Novolog, should hold diuretics and Imdur until 03/11 and should hold Linzess until diarrhea resolves. * FU with me on May 24 as previously scheduled.
== END 2017-03-10 16:00 | disposition home or self-care (01) | DRG 101 ==
LOC: EMU 12:23
PROVIDERS: ADMIT Psychiatry & Neurology Neurology; ATTEND Psychiatry & Neurology Neurology
PROC: 4A10X4Z Monitoring of Central Nervous Electrical Activity, External Approach (ICD-10-PCS; principal; 2017-03-10)
DX: G40.909 Epilepsy, unspecified, not intractable, without status epilepticus (principal); N17.9 Acute kidney failure, unspecified; E11.51 Type 2 diabetes mellitus with diabetic peripheral angiopathy without gangrene; K31.84 Gastroparesis; I48.0 Paroxysmal atrial fibrillation; E11.649 Type 2 diabetes mellitus with hypoglycemia without coma; I50.9 Heart failure, unspecified; E11.43 Type 2 diabetes mellitus with diabetic autonomic (poly)neuropathy; I11.0 Hypertensive heart disease with heart failure; E86.0 Dehydration; E11.65 Type 2 diabetes mellitus with hyperglycemia; Z79.82 Long term (current) use of aspirin; Z79.4 Long term (current) use of insulin; R60.9 Edema, unspecified; J45.909 Unspecified asthma, uncomplicated; F79 Unspecified intellectual disabilities; Z95.810 Presence of automatic (implantable) cardiac defibrillator; I25.10 Atherosclerotic heart disease of native coronary artery without angina pectoris; E78.00 Pure hypercholesterolemia, unspecified; Z86.718 Personal history of other venous thrombosis and embolism; F32.9 Major depressive disorder, single episode, unspecified; F41.0 Panic disorder [episodic paroxysmal anxiety]; M76.811 Anterior tibial syndrome, right leg; E03.9 Hypothyroidism, unspecified; K58.9 Irritable bowel syndrome, unspecified; Z88.0 Allergy status to penicillin; Z88.8 Allergy status to other drugs, medicaments and biological substances
CPT/HCPCS: 36415; 74000; 80048; 80053; 81003; 82150; 83036; 83690; 83735; 84702; 85025; 87086; 95951; A9270-GY; J2405; J2765; J3475; J3480